=== PATIENT | female | born 1940 | race African-American/Black ===

== ENCOUNTER 2018-03-07 13:41 | Inpatient (IN) | payer MEDICARE, BC ==
[~2018-03-07] VITALS: Ht 167.6 cm; Wt 76.2 kg
[2018-03-07] MEDS ORDERED: FLUOXETINE HCL40 MG ORAL (14:17)
[2018-03-07] MEDS ORDERED: ATORVASTATIN CA20 MG ORAL (14:17)
[2018-03-07] MEDS ORDERED: SPIRONOLACTONE100 MG ORAL (14:17)
[2018-03-07 14:20] VITALS: BP 122/68
--- NOTE | 2018-03-07 14:29 | Emergency Room Report ---
History of Present Illness General Chief Complaint: Generalized Weakness Source: Patient Present Illness HPI Mrs. Michael is a 77-year-old female with history of hypertension, dyslipidemia who presents with subjective fever for the past 2 weeks. She also has had constipation for last 3 weeks. She is overall felt unwell with generalized weakness and dizziness. Gradual onset of symptoms. She has left lower quadrant abdominal pain worse with movement and position change. Pain in the left lower quadrant moderately severe and sharp. Intermittent. She's had poor appetite. Denies any weight loss. Pain does not radiate. Patient reports hx of bowel obstruction requiring surgery. Mr. Kavin Michael reports dark malodorous urine PCP Dr. Gigi Bryant Allergies: Coded Allergies: No Known Allergies (Unverified , 03/07/18) Patient History Past Medical History: see triage record, HTN Past Surgical History: , hysterectomy, other - bowel obstruction Nursing Documentation-[facility] Past Medical History: No History, Except For Hx Cardiac Problems: Yes - high cholesterol Hx Hypertension: Yes History Of Psychiatric Problem: Yes - dementia Review of Systems Constitutional: Reports: fever, malaise, weakness Gastrointestinal: Reports: abdominal pain Musculoskeletal: Denies: back pain Neurological: Denies: numbness, paresthesia, focal weakness All Other Systems: negative except mentioned in HPI Physical Exam Vital Signs Date Time Temp Pulse Resp B/P (MAP) Pulse Ox O2 Delivery O2 Flow Rate FiO2 03/07/18 14:00 99.5 115 22 126/67 96 Room Air Sp02 EP Interpretation: reviewed, normal General Appearance: no apparent distress, alert, GCS 15, non-toxic, other - appears mildly ill, slightly confused, warm to touch Head: normocephalic, atraumatic Eyes: bilateral eye normal inspection ENT: hearing grossly normal, normal pharynx, no angioedema, normal voice Neck: full range of motion, supple/symm/no masses Respiratory: chest non-tender, lungs clear, normal breath sounds, speaking full sentences Cardiovascular #1: no edema, no gallop, no JVD, no murmur, no rub, tachycardia Gastrointestinal: normal bowel sounds, non tender, soft, non-distended, no guarding, no rebound Genitourinary: normal inspection Musculoskeletal: back normal, gait/station normal, normal range of motion, non- tender, calf tenderness Neurologic: alert, oriented x3, responsive, motor strength/tone normal, sensory intact, speech normal Psychiatric: judgement/insight normal, memory normal, mood/affect normal, no suicidal/homicidal ideation Skin: normal color, no rash, warm/dry, well hydrated Lymphatic: no adenopathy Medical Decision Making Diagnostic Impression: Primary Impression: Neoplasm of abdomen Additional Impressions: Obstipation Fever ER Course Mrs. Michael presents with 2-3 weeks of fever and obstipation. Has large intra- abdominal mass concerning for malignancy. IV abx given for possible cystitis as seen on CT. Admitted to service of Dr. Roblero Labs Test 03/07/18 14:35 03/07/18 16:15 White Blood Count 11.5 K/UL (4.8-10.8) Red Blood Count 3.55 M/UL (4.20-5.40) Hemoglobin 9.3 G/DL (12.0-16.0) Hematocrit 30.1 % (37.0-47.0) Mean Corpuscular Volume 85 FL (80-99) Mean Corpuscular Hemoglobin 26.3 PG (27.0-31.0) Mean Corpuscular Hemoglobin Concent 31.0 G/DL (32.0-36.0) Red Cell Distribution Width 13.9 % (11.6-14.8) Platelet Count 361 K/UL (150-450) Mean Platelet Volume 6.9 FL (6.5-10.1) Neutrophils (%) (Auto) 74.5 % (45.0-75.0) Lymphocytes (%) (Auto) 12.4 % (20.0-45.0) Monocytes (%) (Auto) 11.7 % (1.0-10.0) Eosinophils (%) (Auto) 0.4 % (0.0-3.0) Basophils (%) (Auto) 0.9 % (0.0-2.0) Sodium Level 136 MMOL/L (136-145) Potassium Level 3.2 MMOL/L (3.5-5.1) Chloride Level 99 MMOL/L (98-107) Carbon Dioxide Level 27 MMOL/L (21-32) Anion Gap 10 mmol/L (5-15) Blood Urea Nitrogen 11 mg/dL (7-18) Creatinine 1.2 MG/DL (0.55-1.30) Estimat Glomerular Filtration Rate mL/min (>60) Glucose Level 127 MG/DL (74-106) Lactic Acid Level 1.50 mmol/L (0.4-2.0) Calcium Level 10.1 MG/DL (8.5-10.1) Total Bilirubin 1.0 MG/DL (0.2-1.0) Aspartate Amino Transf (AST/SGOT) 66 U/L (15-37) Alanine Aminotransferase (ALT/SGPT) 57 U/L (12-78) Alkaline Phosphatase 97 U/L (46-116) Creatine Kinase MB < 0.5 NG/ML (0.0-3.6) Troponin I 0.000 ng/mL (0.000-0.056) Total Protein 8.3 G/DL (6.4-8.2) Albumin 2.0 G/DL (3.4-5.0) Globulin 6.3 g/dL Albumin/Globulin Ratio 0.3 (1.0-2.7) Urine Color Brown Urine Appearance Clear Urine pH 5 (4.5-8.0) Urine Specific [place] 1.015 (1.005-1.035) Urine Protein 2+ (NEGATIVE) Urine Glucose (UA) Negative (NEGATIVE) Urine Ketones 1+ (NEGATIVE) Urine Blood 1+ (NEGATIVE) Urine Nitrite Negative (NEGATIVE) Urine Bilirubin 1+ (NEGATIVE) Urine Ictotest Negative (NEGATIVE) Urine Urobilinogen 12 MG/DL (0.0-1.0) Urine Leukocyte Esterase 1+ (NEGATIVE) Urine RBC 2-4 /HPF (0 - 2) Urine WBC 2-4 /HPF (0 - 2) Urine Squamous Epithelial Cells Few /LPF (NONE/OCC) Urine Amorphous Sediment Moderate /LPF (NONE) Urine Bacteria Few /HPF (NONE) Lab Results Impression abnormal equivocal UA CXR WNL according to radiology report EKG Diagnostic Results EKG Time: 14:32 Rate: tachycardiac Other Impression sinus tachycardia rate 120 bpm nl left axis devation no ST elevation no signs of ischemia Last Vital Signs Date Time Temp Pulse Resp B/P (MAP) Pulse Ox O2 Delivery O2 Flow Rate FiO2 03/07/18 14:20 105 22 Room Air 03/07/18 14:20 99.5 122/68 98 Referrals: NON PHYSICIAN (PCP) Ciera Wiley MD Mar 07, 2018 14:29
--- NOTE | 2018-03-07 15:01 | Diagnostic Imaging Report ---
Indication: Dyspnea Comparison: None A single view chest radiograph was obtained. Findings: No definite infiltrate or pulmonary vascular congestion identified. The heart is enlarged. The aorta is mildly enlarged consistent with atherosclerotic vascular disease. The bones are osteopenic. Impression: No acute disease
[2018-03-07 15:12] LABS: BASOPHILS % (AUTO) 0.9 % (0.0-2.0); EOSINOPHILS % (AUTO) 0.4 % (0.0-3.0); HEMATOCRIT 30.1 % (37.0-47.0); HEMOGLOBIN 9.3 G/DL (12.0-16.0); LYMPHOCYTES % (AUTO) 12.4 % (20.0-45.0); MEAN CORPUSCULAR VOLUME 85 FL (80-99); MONOCYTES % (AUTO) 11.7 % (1.0-10.0); NEUTROPHILS % (AUTO) 74.5 % (45.0-75.0); PLATELET COUNT 361 K/UL (150-450); RED BLOOD COUNT 3.55 M/UL (4.20-5.40); RED CELL DISTRIBUTION WIDTH 13.9 % (11.6-14.8); WHITE BLOOD COUNT 11.5 K/UL (4.8-10.8)
[2018-03-07 15:32] LABS: ANION GAP 10 mmol/L (5-15); BLOOD UREA NITROGEN 11 mg/dL (7-18); CALCIUM 10.1 MG/DL (8.5-10.1); CARBON DIOXIDE 27 MMOL/L (21-32); CHLORIDE 99 MMOL/L (98-107); CREATININE 1.2 MG/DL (0.55-1.30); POTASSIUM 3.2 MMOL/L (3.5-5.1); SODIUM 136 MMOL/L (136-145)
[2018-03-07 15:46] LABS: ALANINE AMINOTRANSFERASE 57 U/L (12-78); ALBUMIN/GLOBULIN RATIO 0.3 (1.0-2.7); ALKALINE PHOSPHATASE 97 U/L (46-116); ASPARTATE AMINO TRANSFERASE 66 U/L (15-37); CKMB < 0.5 NG/ML (0.0-3.6)
[2018-03-07 16:11] VITALS: BP 127/91
[2018-03-07 16:34] LABS: APPEARANCE,URINE CLEAR; BILIRUBIN, URINE 1+ (NEGATIVE); COLOR,URINE BROWN; GLUCOSE, URINE (UA) NEGATIVE (NEGATIVE); KETONES,URINE 1+ (NEGATIVE); LEUKOCYTE ESTERASE ,URINE 1+ (NEGATIVE); NITRITE,URINE NEGATIVE (NEGATIVE); PH,URINE 5 (4.5-8.0); PROTEIN,URINE 2+ (NEGATIVE); UROBILINOGEN,URINE 12 MG/DL (0.0-1.0)
[2018-03-07] MEDS ORDERED: Isovue-300 100ml vial INJ PRN (17:00)
[2018-03-07 17:48] VITALS: BP 136/79
[2018-03-07] MEDS ORDERED: Cefepime HCl 1 GM in D5W 55 ML IVPB ONE (18:15)
[2018-03-07] MEDS ORDERED: Nitroglycerin Subl 0.4mg tab SL PRN (19:00)
[2018-03-07] MEDS ORDERED: Mylanta II UD 30ml ORAL PRN (19:00)
[2018-03-07] MEDS ORDERED: LORazepam Inj 2mg/ml 1ml IV PRN (19:00)
[2018-03-07] MEDS ORDERED: Morphine Sulfate 2mg/ml Inj IVP PRN (19:00)
[2018-03-07] MEDS ORDERED: Miralax 17gm pkt ORAL PRN (19:00)
[2018-03-07] MEDS ORDERED: Metoclopramide 10mg/2ml Inj IVP PRN (19:00)
[2018-03-07] MEDS ORDERED: Promethazine HCl 25 MG in NS 55 ML IV PRN (19:00)
[2018-03-07] MEDS ORDERED: Promethazine HCl 12.5 MG in NS 55 ML IV PRN (19:00)
--- NOTE | 2018-03-07 19:20 | History & Physical ---
History and Physical History & Physicial Dictated for Int med-Dr Roblero no. [id number] Hernandez Bonilla MD Mar 07, 2018 19:20
[2018-03-07] MEDS ORDERED: Promethazine 50mg/ml Inj IM PRN (19:45)
[2018-03-07 20:00] VITALS: BP 134/80
[2018-03-07] MEDS: D5 1/2NS 1,000 ML IV SCH (20:00)
[2018-03-07] MEDS: Heparin 5000 units/ml inj SUBQ SCH (20:57)
--- NOTE | 2018-03-07 21:45 | History and Physical Report ---
DATE OF ADMISSION: 03/07/2018 CHIEF COMPLAINT: The patient is a 77-year-old female, who presents with a chief complaint of left lower quadrant pain. HISTORY OF PRESENT ILLNESS: The patient has a history of hypertension and hypercholesterolemia. The patient has had subjective fevers and chills for the last two weeks. The patient also noticed weakness and dizziness. The patient states she has also been constipated. The patient began to experience left lower quadrant pain. The patient has a history of small bowel obstruction requiring surgery. The patient is admitted with left lower quadrant pain to rule out small bowel obstruction. REVIEW OF SYSTEMS: CONSTITUTIONAL: The patient complains of poor appetite. The patient denies weight loss or weight gain. The patient complains of subjective fevers and chills. HEENT: The patient denies ear or throat pain. The patient denies headache. CARDIOVASCULAR: The patient denies palpitations or chest pain. CHEST: The patient denies wheeze or shortness of breath. ABDOMEN: The patient complains of left lower quadrant pain as above. The patient denies nausea, vomiting, diarrhea, or constipation. GENITOURINARY: The patient denies denies dysuria or increased frequency of urination. NEUROLOGIC: The patient denies seizures or generalized weakness. PAST MEDICAL HISTORY: Significant for, 1. Hypertension. 2. Hypercholesterolemia. 3. History of small bowel obstruction as above. PAST SURGICAL HISTORY: Significant for, 1. Small bowel obstruction. 2. Total abdominal hysterectomy. 3. section. CURRENT MEDICATIONS: 1. Lipitor 20 mg p.o. daily. 2. Fluoxetine 40 mg p.o. daily. 3. Spironolactone 50 mg p.o. daily. ALLERGIES: No known drug allergies. SOCIAL HISTORY: The patient is and lives with her . The patient denies tobacco or alcohol use. PHYSICAL EXAMINATION: VITAL SIGNS: Temperature 99.5, respirations 22, pulse tachycardic at 115, and blood pressure 126/67. GENERAL: The patient is a well-developed and well-nourished female, in moderate distress. HEENT: Eyes, pupils equal and responsive to light and accommodation. Extraocular movements are intact. NECK: Supple without lymphadenopathy. CHEST: Lungs are clear to auscultation bilaterally without wheezes or rales. CARDIOVASCULAR: Regular rhythm and rate. S1, S2 are normal without murmurs, rubs, or gallops. ABDOMEN: Soft and diffusely tender with positive bowel sounds. There is guarding to left lower quadrant. There is no rebound or guarding noted. EXTREMITIES: Negative for clubbing, cyanosis, or edema. RECTAL/GENITAL: Refused. NEUROLOGIC: Cranial nerves II through XII are grossly intact without focal deficits. Motor strength is 5/5 bilaterally. Deep tendon reflexes are 2+ plantar. LABORATORY STUDIES: WBC 11.5, hemoglobin 9.3, hematocrit 30.1, and platelets 261,000. Sodium 136, potassium 3.2, chloride 99, CO2 27, BUN 11, creatinine 1.2, and glucose 127. Urinalysis showed 2+ protein, 1+ ketones, 1+ blood, and 1+ leukocyte esterase with 2 to 4 wbc's. ASSESSMENT: This is a 77-year-old female. 1. Left lower quadrant pain. 2. Constipation. 3. Fever and chills. 4. Hypertension. 5. Hypercholesterolemia. TREATMENT: 1. Left lower quadrant pain. An abdominal ultrasound is pending. A CT scan of the abdomen and pelvis is pending. Left lower quadrant pain is concerning, the patient has a history of small bowel obstruction. We will follow recommendation. Await CT and ultrasound as above. 2. Hypertension. Continue spironolactone as above. 3. Hypercholesteremia. Continue Lipitor as above. Hernandez Bonilla M.D. DR: ELOISA JOB#: [id number] CC:
[2018-03-08 07:53] LABS: HEMATOCRIT 24.2 % (37.0-47.0); HEMOGLOBIN 7.6 G/DL (12.0-16.0); MEAN CORPUSCULAR VOLUME 82 FL (80-99); PLATELET COUNT 321 K/UL (150-450); RED BLOOD COUNT 2.93 M/UL (4.20-5.40); WHITE BLOOD COUNT 11.1 K/UL (4.8-10.8)
[2018-03-08 08:00] VITALS: BP 109/61
[2018-03-08 08:07] LABS: INR 1.1 (0.9-1.1)
[2018-03-08] MEDS: Spironolactone 50mg tab ORAL SCH (08:12)
[2018-03-08] MEDS: Pantoprazole Inj IV SCH (08:13)
[2018-03-08] MEDS: Heparin 5000 units/ml inj SUBQ SCH ×2 (08:14→21:57)
[2018-03-08 08:16] LABS: ALANINE AMINOTRANSFERASE 53 U/L (12-78); ALBUMIN 1.6 G/DL (3.4-5.0); ALBUMIN/GLOBULIN RATIO 0.3 (1.0-2.7); ALKALINE PHOSPHATASE 82 U/L (46-116); AMYLASE 38 U/L (25-115); ANION GAP 5 mmol/L (5-15); ASPARTATE AMINO TRANSFERASE 53 U/L (15-37); BILIRUBIN,TOTAL 0.6 MG/DL (0.2-1.0); BLOOD UREA NITROGEN 8 mg/dL (7-18); CALCIUM 9.3 MG/DL (8.5-10.1); CARBON DIOXIDE 28 MMOL/L (21-32); CHLORIDE 102 MMOL/L (98-107); LACTATE DEHYDROGENASE 162 U/L (81-234); POTASSIUM 3.3 MMOL/L (3.5-5.1); SODIUM 135 MMOL/L (136-145)
[2018-03-08] MEDS ORDERED: Isovue-300 100ml vial INJ PRN (08:45)
[2018-03-08 08:48] LABS: % IRON SATURATION 8 % (15-50); IRON 11 ug/dL (50-175); TOTAL IRON BINDING CAPACITY 132 ug/dL (250-450)
[2018-03-08] MEDS: D5 1/2NS 1,000 ML IV SCH ×2 (10:34→21:56)
--- NOTE | 2018-03-08 10:35 | Diagnostic Imaging Report ---
Indication: Abdominal pain Technique: Continuous helical transaxial imaging of the abdomen and pelvis was obtained from the lung bases to the pubic symphysis during intravenous contrast administration. Coronal 2-D reformats were also obtained. Study obtained in a Siemens sensation [address] Automatic Exposure Control was utilized. Total Dose length Product (DLP): 717.[address] Dose Index Volume (CTDIvol): 13.68 mGy Comparison: None Findings: There is a 7 x 5.6 x 6 cm heterogeneous enhancing mass in the area of the gallbladder fossa extending into the area of the distal stomach/first portion of duodenum, structures that are moderately compressed and the inseparable from this mass. The findings are suspicious for malignant tumor which may BE of gallbladder origin. It is possible that the tumor is arising from the stomach and extending into the gallbladder fossa. Would consider infection in the differential diagnosis but that this is felt to be less likely based on imaging appearance. There is no obstruction of the stomach as the stomach does not appear dilated proximal to this. The pancreas does not appear to be involved although the tumor does appear adjacent to it. The main pancreatic duct is seen and does not appear dilated. The biliary ducts in the liver do not appear dilated. There is periportal edema present. The main portal vein is patent. There is no evidence of portal vein thrombosis. IVC is unremarkable and uninvolved. There is reticular densities in the adjacent mesenteric fat in the right upper quadrant. No evidence of bowel obstruction or bowel perforation. No free air identified. The kidneys enhance normally. There is no hydronephrosis. Aortoiliac calcifications are present. Diverticula noted in the sigmoid colon. Urinary bladder is nondistended. Liver attenuation is normal. Lung bases are clear. There is a small hiatal hernia. There is no adrenal mass. Spleen is normal size. Degenerative disc disease noted multiple levels especially L2-3, L3-4 and L5-S1. Hypertrophied facets noted multiple levels within the lumbar spine. The bones are osteopenic. IMPRESSION: Large heterogeneous enhancing mass in the jori hepatis contiguous with the gallbladder fossa measuring 7 x 5.6 x 6 cm suspicious for malignant tumor. This is probably of gallbladder origin. Would consider gastric or duodenal origin. Would consider infection although much less likely based on the appearance. Correlate clinically. Atherosclerotic disease Hiatal hernia Degenerative disease of the lumbar spine. Diverticulosis of the colon. [facility] has communicated the preliminary results to the Emergency Department. Their findings are largely concordant with this report. The CT scanner at [facility] is accredited by the [employer] and the scans are performed using dose optimization techniques as appropriate to a performed exam including Automatic Exposure control.
--- NOTE | 2018-03-08 11:33 | GI Initial Consult Note ---
History of Present Illness General Date patient seen: Mar 08, 2018 Time patient seen: 11:19 Reason for Hospitalization: Generalized Weakness Referring physician: REY HOLT Reason for Consultation: ANEMIA Present Illness HPI Mrs. Michael is a 77-year-old female with history of hypertension, dyslipidemia who presents with subjective fever for the past 2 weeks. She also has had constipation for last 3 weeks. She is overall felt unwell with generalized weakness and dizziness. Gradual onset of symptoms. She has left lower quadrant abdominal pain worse with movement and position change. Pain in the left lower quadrant moderately severe and sharp. Intermittent. She's had poor appetite. Denies any weight loss. Pain does not radiate. Patient reports hx of bowel obstruction requiring surgery. Mr. Kavin Michael reports dark malodorous urine. GI consulted for anemia/constipation. Pt seen, awake A&Ox4 NAD with generalized weakness. No active s/sx of N/V/D. Patient had reports of constipation, but stated she had a regular BM this morning. The patient has no history of endoscopy / colonoscopy. Stated she had a virtual colonoscopy with normal findings. Labs reviewed; anemia, iron deficiency. Pending CT. Home Meds Reported Medications Atorvastatin Calcium* (ATORVASTATIN CALCIUM*) 20 Mg Tablet, 10 MG ORAL BEDTIME, TAB 03/07/18 Spironolactone* (SPIRONOLACTONE*) 100 Mg Tablet, 50 MG ORAL DAILY, TAB 03/07/18 Fluoxetine Hcl* (FLUOXETINE HCL*) 40 Mg Capsule, 40 MG ORAL DAILY, CAP 03/07/18 Med list reviewed/reconciled: Yes Allergies: Coded Allergies: No Known Allergies (Unverified , 03/07/18) Patient History History Provided By: Patient, Medical Record PMH Narrative Past Medical History: see triage record, HTN Past Surgical History: , hysterectomy, other - bowel obstruction Nursing Documentation-PM Past Medical History: No History, Except For Hx Cardiac Problems: Yes - high cholesterol Hx Hypertension: Yes History Of Psychiatric Problem: Yes - dementia Social History: Denies: smoking, alcohol use, drug use, other Review of Systems All Other Systems: negative except mentioned in HPI Physical Exam Vital Signs Date Time Temp Pulse Resp B/P (MAP) Pulse Ox O2 Delivery O2 Flow Rate FiO2 03/07/18 14:00 99.5 115 22 126/67 96 Room Air Sp02 EP Interpretation: reviewed, normal Labs Laboratory Tests Test 03/07/18 14:35 03/07/18 16:15 03/08/18 06:45 White Blood Count 11.5 K/UL (4.8-10.8) H 11.1 K/UL (4.8-10.8) H Red Blood Count 3.55 M/UL (4.20-5.40) L 2.93 M/UL (4.20-5.40) L Hemoglobin 9.3 G/DL (12.0-16.0) L 7.6 G/DL (12.0-16.0) L Hematocrit 30.1 % (37.0-47.0) L 24.2 % (37.0-47.0) L Mean Corpuscular Volume 85 FL (80-99) 82 FL (80-99) Mean Corpuscular Hemoglobin 26.3 PG (27.0-31.0) L 26.1 PG (27.0-31.0) L Mean Corpuscular Hemoglobin Concent 31.0 G/DL (32.0-36.0) L 31.6 G/DL (32.0-36.0) L Red Cell Distribution Width 13.9 % (11.6-14.8) 14.0 % (11.6-14.8) Platelet Count 361 K/UL (150-450) 321 K/UL (150-450) Mean Platelet Volume 6.9 FL (6.5-10.1) 7.0 FL (6.5-10.1) Neutrophils (%) (Auto) 74.5 % (45.0-75.0) % (45.0-75.0) Lymphocytes (%) (Auto) 12.4 % (20.0-45.0) L % (20.0-45.0) Monocytes (%) (Auto) 11.7 % (1.0-10.0) H % (1.0-10.0) Eosinophils (%) (Auto) 0.4 % (0.0-3.0) % (0.0-3.0) Basophils (%) (Auto) 0.9 % (0.0-2.0) % (0.0-2.0) Sodium Level 136 MMOL/L (136-145) 135 MMOL/L (136-145) L Potassium Level 3.2 MMOL/L (3.5-5.1) L 3.3 MMOL/L (3.5-5.1) L Chloride Level 99 MMOL/L (98-107) 102 MMOL/L (98-107) Carbon Dioxide Level 27 MMOL/L (21-32) 28 MMOL/L (21-32) Anion Gap 10 mmol/L (5-15) 5 mmol/L (5-15) Blood Urea Nitrogen 11 mg/dL (7-18) 8 mg/dL (7-18) Creatinine 1.2 MG/DL (0.55-1.30) 1.0 MG/DL (0.55-1.30) Estimat Glomerular Filtration Rate mL/min (>60) mL/min (>60) Glucose Level 127 MG/DL (74-106) H 128 MG/DL (74-106) H Lactic Acid Level 1.50 mmol/L (0.4-2.0) Calcium Level 10.1 MG/DL (8.5-10.1) 9.3 MG/DL (8.5-10.1) Total Bilirubin 1.0 MG/DL (0.2-1.0) 0.6 MG/DL (0.2-1.0) Aspartate Amino Transf (AST/SGOT) 66 U/L (15-37) H 53 U/L (15-37) H Alanine Aminotransferase (ALT/SGPT) 57 U/L (12-78) 53 U/L (12-78) Alkaline Phosphatase 97 U/L (46-116) 82 U/L (46-116) Creatine Kinase MB < 0.5 NG/ML (0.0-3.6) Troponin I 0.000 ng/mL (0.000-0.056) Total Protein 8.3 G/DL (6.4-8.2) H 6.7 G/DL (6.4-8.2) Albumin 2.0 G/DL (3.4-5.0) L 1.6 G/DL (3.4-5.0) L Globulin 6.3 g/dL 5.1 g/dL Albumin/Globulin Ratio 0.3 (1.0-2.7) L 0.3 (1.0-2.7) L Urine Color Brown Urine Appearance Clear Urine pH 5 (4.5-8.0) Urine Specific [place] 1.015 (1.005-1.035) Urine Protein 2+ (NEGATIVE) H Urine Glucose (UA) Negative (NEGATIVE) Urine Ketones 1+ (NEGATIVE) H Urine Blood 1+ (NEGATIVE) H Urine Nitrite Negative (NEGATIVE) Urine Bilirubin 1+ (NEGATIVE) H Urine Ictotest Negative (NEGATIVE) Urine Urobilinogen 12 MG/DL (0.0-1.0) H Urine Leukocyte Esterase 1+ (NEGATIVE) H Urine RBC 2-4 /HPF (0 - 2) H Urine WBC 2-4 /HPF (0 - 2) Urine Squamous Epithelial Cells Few /LPF (NONE/OCC) Urine Amorphous Sediment Moderate /LPF (NONE) H Urine Bacteria Few /HPF (NONE) Differential Total Cells Counted 100 Neutrophils % (Manual) 76 % (45-75) H Lymphocytes % (Manual) 13 % (20-45) L Monocytes % (Manual) 9 % (1-10) Eosinophils % (Manual) 1 % (0-3) Basophils % (Manual) 1 % (0-2) Band Neutrophils 0 % (0-8) Platelet Estimate Adequate Platelet Morphology Normal Hypochromasia 3+ Anisocytosis 1+ Erythrocyte Sedimentation Rate 100 MM/HR (0-30) H Reticulocyte Count 2.0 % (0.0-2.0) Prothrombin Time 11.8 SEC (9.30-11.50) H Prothromb Time International Ratio 1.1 (0.9-1.1) Activated Partial Thromboplast Time 30 SEC (23-33) Iron Level 11 ug/dL (50-175) L Total Iron Binding Capacity 132 ug/dL (250-450) L Percent Iron Saturation 8 % (15-50) L Unsaturated Iron Binding 121 ug/dL (112-346) Lactate Dehydrogenase 162 U/L (81-234) Amylase Level 38 U/L (25-115) Lipase 183 U/L (73-393) Carcinoembryonic Antigen Pending Vitamin B12 Level 1552 PG/ML (193-986) H Folate 11.0 NG/ML (8.6-58.9) General Appearance: well appearing, no apparent distress, alert Head: normocephalic EENT: PERRL/EOMI, normal ENT inspection Neck: supple Respiratory: normal breath sounds, no respiratory distress Cardiovascular: normal rate Gastrointestinal: normal inspection, non tender, soft, normal bowel sounds, non -distended Rectal: deferred Genitourinary: no CVA tenderness Musculoskeletal: normal inspection, back normal Neurologic: normal inspection, alert, oriented x3, responsive Psychiatric: normal inspection, judgement/insight normal, memory normal Skin: normal inspection, normal color, no rash, warm/dry, palpation normal, well hydrated Lymphatic: normal inspection, no adenopathy Current Medications Current Medications Medications (Trade) Dose Ordered Sig/Sebastien Route PRN Reason Start Time Stop Time Status Last Admin Dose Admin Acetaminophen (Tylenol) 650 mg Q4H PRN ORAL fever (temp>100.5F) 03/07/18 19:00 04/06/18 18:59 Al Hydroxide/Mg Hydroxide (Mylanta II) 30 ml Q6H PRN ORAL dyspepsia 03/07/18 19:00 04/06/18 18:59 Atorvastatin Calcium (Lipitor) 10 mg BEDTIME ORAL 03/07/18 23:15 04/06/18 23:14 Barium Sulfate (Readi-Cat 2) 450 ml NOW PRN ORAL Radiology Procedure 03/08/18 08:45 03/10/18 08:42 Dextrose (Dextrose 50%) 25 ml Q30M PRN IV Hypoglycemia 03/07/18 19:00 04/06/18 18:59 Dextrose (Dextrose 50%) 50 ml Q30M PRN IV Hypoglycemia 03/07/18 19:00 04/06/18 18:59 Dextrose/Sodium Chloride 1,000 ml @ 75 mls/hr [id number] IV 03/07/18 20:00 04/06/18 19:59 03/08/18 10:34 Diphenhydramine HCl (Benadryl) 25 mg Q6H PRN ORAL Itching/Pruritis 03/07/18 19:00 04/06/18 18:59 Fluoxetine HCl (PROzac) 60 mg DAILY ORAL 03/09/18 09:00 04/08/18 08:59 Heparin Sodium (Porcine) (Heparin 5000 units/ml) 5,000 units EVERY 12 HOURS SUBQ 03/07/18 21:00 04/06/18 20:59 03/08/18 08:14 Iopamidol (Isovue-300 100ml) 100 ml NOW PRN INJ Radiology Procedure 03/07/18 17:00 03/09/18 16:59 Iopamidol (Isovue-300 100ml) 100 ml NOW PRN INJ Radiology Procedure 03/08/18 08:45 03/09/18 08:44 Lorazepam (Ativan 2mg/ml 1ml) 1 mg Q4H PRN IV agitation 03/07/18 19:00 03/14/18 18:59 Metoclopramide HCl (Reglan) 10 mg Q6H PRN IVP severe nausea 03/07/18 19:00 04/06/18 18:59 Morphine Sulfate (Morphine Sulfate) 2 mg Q4H PRN IVP severe Pain (Pain Scale 7-10) 03/07/18 19:00 03/14/18 18:59 Nitroglycerin (Ntg) 0.4 mg Q5M X 3 DOSES PRN SL Prn Chest Pain 03/07/18 19:00 04/06/18 18:59 Ondansetron HCl (Zofran) 4 mg Q6H PRN IVP Nausea & Vomiting 03/07/18 19:00 04/06/18 18:59 Pantoprazole (Protonix) 40 mg DAILY IV 03/08/18 09:00 04/07/18 08:59 03/08/18 08:13 Polyethylene Glycol (Miralax) 17 gm HSPRN PRN ORAL Constipation 03/07/18 19:00 04/06/18 18:59 Promethazine HCl (Phenergan) 25 mg Q6H PRN IM Refractory N/V 03/07/18 19:45 04/06/18 19:44 Spironolactone (Aldactone) 50 mg DAILY ORAL 03/08/18 09:00 04/07/18 08:59 03/08/18 08:12 Temazepam (Restoril) 15 mg HSPRN PRN ORAL Insomnia 03/07/18 19:00 03/14/18 18:59 GI: Plan Problems: (1) Anemia (2) Constipation (3) Neoplasm of abdomen Plan CT AP reviewed >> Large heterogeneous enhancing mass in the jori hepatis contiguous with the gallbladder fossa measuring 7 x 5.6 x 6 cm suspicious for malignant tumor. This is probably of gallbladder origin. surgery /oncology consult recommended CT guided biopsy tumor markers anemia work up monitor H&H, prn transfusions bowel regime ppi venofer fu labs Discussed with Dr. Deleon. Thank you for this patient referral, we will follow. The patient was seen and examined at bedside and all new and available data was reviewed in the patients chart. I agree with the above findings, impression and plan. (Patient seen earlier today. Signature stamp does not reflect patient encounter time.). - MD Ehsan Lewisuyen,[facility] [employer] SET UP OPERATOR Mar 08, 2018 11:33
[2018-03-08 12:00] VITALS: BP 117/67
[2018-03-08] MEDS ORDERED: Gadavist 7.5mMol/7.5ml vial IV SCH (12:15)
--- NOTE | 2018-03-08 12:17 | Consultation ---
History of Present Illness General Chief Complaint: Generalized Weakness Referring physician: REY HOLT Reason for Consultation: abdominal mass Present Illness HPI 77 year old female with multiple medical comorbidities presented with complaints of fevers, chills, night sweats, abdominal discomfort, fatigue, constipation. states gradual onset of symptoms over few weeks. on admission had CT scan which demonstrated RUQ mass. surgery called to evaluate. patient seen, chart reviewed, patient examined. patient unaware of mass. 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 currently feeling okay. somewhat poor historian. states cannot recall colonoscopy but had virtual CT scope a year ago in [place] somewhere. usually constipated. states BM last night and normal. no blood seen. no n/v. Allergies: Coded Allergies: No Known Allergies (Unverified , 03/07/18) Medication History Scheduled Atorvastatin Calcium* (Atorvastatin Calcium*), 10 MG ORAL BEDTIME, (Reported) Fluoxetine Hcl* (Fluoxetine Hcl*), 40 MG ORAL DAILY, (Reported) Spironolactone* (Spironolactone*), 50 MG ORAL DAILY, (Reported) Patient History History Provided By: Patient, Medical Record, PMD Healthcare decision maker Kavin Resuscitation status Full Code Advanced Directive on File Past Medical/Surgical History Past Medical/Surgical History: (1) Weakness (2) Obstipation (3) Fever (4) Neoplasm of abdomen (5) Constipation (6) Anemia Review of Systems All Other Systems: negative except mentioned in HPI Physical Exam General Appearance: no apparent distress, alert Lines, tubes and drains: peripheral HEENT: normocephalic, mucous membranes moist Neck: normal inspection Respiratory/Chest: normal breath sounds, no respiratory distress, no accessory muscle use Cardiovascular/Chest: normal rate, regular rhythm Abdomen: normal bowel sounds, non tender, soft, no organomegaly, no mass, other - prior lower midline scar well healed Extremities: normal inspection Skin Exam: warm/dry Neurologic: alert, responsive Last 24 Hour Vital Signs Date Time Temp Pulse Resp B/P (MAP) Pulse Ox O2 Delivery O2 Flow Rate FiO2 03/08/18 09:00 Room Air 03/08/18 08:00 91 03/08/18 08:00 99.2 89 109/61 (77) 93 03/08/18 04:00 92 03/08/18 00:00 90 03/07/18 21:45 Room Air 03/07/18 20:00 99.1 97 134/80 (98) 98 03/07/18 20:00 94 03/07/18 18:47 99.5 94 22 136/79 96 Room Air 03/07/18 17:48 99.5 94 22 136/79 96 Room Air 03/07/18 16:11 99.5 98 22 127/91 98 Room Air 03/07/18 14:20 105 22 Room Air 03/07/18 14:20 99.5 105 22 122/68 98 Room Air 03/07/18 14:00 99.5 115 22 126/67 96 Room Air Intake and Output 03/07/18 03/08/18 19:00 07:00 Intake Total 2300 ml Balance 2300 ml Intake IV Total 2300 ml # Voids 1 1 Laboratory Tests Test 03/07/18 14:35 03/07/18 16:15 03/08/18 06:45 White Blood Count 11.5 K/UL (4.8-10.8) H 11.1 K/UL (4.8-10.8) H Red Blood Count 3.55 M/UL (4.20-5.40) L 2.93 M/UL (4.20-5.40) L Hemoglobin 9.3 G/DL (12.0-16.0) L 7.6 G/DL (12.0-16.0) L Hematocrit 30.1 % (37.0-47.0) L 24.2 % (37.0-47.0) L Mean Corpuscular Volume 85 FL (80-99) 82 FL (80-99) Mean Corpuscular Hemoglobin 26.3 PG (27.0-31.0) L 26.1 PG (27.0-31.0) L Mean Corpuscular Hemoglobin Concent 31.0 G/DL (32.0-36.0) L 31.6 G/DL (32.0-36.0) L Red Cell Distribution Width 13.9 % (11.6-14.8) 14.0 % (11.6-14.8) Platelet Count 361 K/UL (150-450) 321 K/UL (150-450) Mean Platelet Volume 6.9 FL (6.5-10.1) 7.0 FL (6.5-10.1) Neutrophils (%) (Auto) 74.5 % (45.0-75.0) % (45.0-75.0) Lymphocytes (%) (Auto) 12.4 % (20.0-45.0) L % (20.0-45.0) Monocytes (%) (Auto) 11.7 % (1.0-10.0) H % (1.0-10.0) Eosinophils (%) (Auto) 0.4 % (0.0-3.0) % (0.0-3.0) Basophils (%) (Auto) 0.9 % (0.0-2.0) % (0.0-2.0) Sodium Level 136 MMOL/L (136-145) 135 MMOL/L (136-145) L Potassium Level 3.2 MMOL/L (3.5-5.1) L 3.3 MMOL/L (3.5-5.1) L Chloride Level 99 MMOL/L (98-107) 102 MMOL/L (98-107) Carbon Dioxide Level 27 MMOL/L (21-32) 28 MMOL/L (21-32) Anion Gap 10 mmol/L (5-15) 5 mmol/L (5-15) Blood Urea Nitrogen 11 mg/dL (7-18) 8 mg/dL (7-18) Creatinine 1.2 MG/DL (0.55-1.30) 1.0 MG/DL (0.55-1.30) Estimat Glomerular Filtration Rate mL/min (>60) mL/min (>60) Glucose Level 127 MG/DL (74-106) H 128 MG/DL (74-106) H Lactic Acid Level 1.50 mmol/L (0.4-2.0) Calcium Level 10.1 MG/DL (8.5-10.1) 9.3 MG/DL (8.5-10.1) Total Bilirubin 1.0 MG/DL (0.2-1.0) 0.6 MG/DL (0.2-1.0) Aspartate Amino Transf (AST/SGOT) 66 U/L (15-37) H 53 U/L (15-37) H Alanine Aminotransferase (ALT/SGPT) 57 U/L (12-78) 53 U/L (12-78) Alkaline Phosphatase 97 U/L (46-116) 82 U/L (46-116) Creatine Kinase MB < 0.5 NG/ML (0.0-3.6) Troponin I 0.000 ng/mL (0.000-0.056) Total Protein 8.3 G/DL (6.4-8.2) H 6.7 G/DL (6.4-8.2) Albumin 2.0 G/DL (3.4-5.0) L 1.6 G/DL (3.4-5.0) L Globulin 6.3 g/dL 5.1 g/dL Albumin/Globulin Ratio 0.3 (1.0-2.7) L 0.3 (1.0-2.7) L Urine Color Brown Urine Appearance Clear Urine pH 5 (4.5-8.0) Urine Specific [place] 1.015 (1.005-1.035) Urine Protein 2+ (NEGATIVE) H Urine Glucose (UA) Negative (NEGATIVE) Urine Ketones 1+ (NEGATIVE) H Urine Blood 1+ (NEGATIVE) H Urine Nitrite Negative (NEGATIVE) Urine Bilirubin 1+ (NEGATIVE) H Urine Ictotest Negative (NEGATIVE) Urine Urobilinogen 12 MG/DL (0.0-1.0) H Urine Leukocyte Esterase 1+ (NEGATIVE) H Urine RBC 2-4 /HPF (0 - 2) H Urine WBC 2-4 /HPF (0 - 2) Urine Squamous Epithelial Cells Few /LPF (NONE/OCC) Urine Amorphous Sediment Moderate /LPF (NONE) H Urine Bacteria Few /HPF (NONE) Differential Total Cells Counted 100 Neutrophils % (Manual) 76 % (45-75) H Lymphocytes % (Manual) 13 % (20-45) L Monocytes % (Manual) 9 % (1-10) Eosinophils % (Manual) 1 % (0-3) Basophils % (Manual) 1 % (0-2) Band Neutrophils 0 % (0-8) Platelet Estimate Adequate Platelet Morphology Normal Hypochromasia 3+ Anisocytosis 1+ Erythrocyte Sedimentation Rate 100 MM/HR (0-30) H Reticulocyte Count 2.0 % (0.0-2.0) Prothrombin Time 11.8 SEC (9.30-11.50) H Prothromb Time International Ratio 1.1 (0.9-1.1) Activated Partial Thromboplast Time 30 SEC (23-33) Iron Level 11 ug/dL (50-175) L Total Iron Binding Capacity 132 ug/dL (250-450) L Percent Iron Saturation 8 % (15-50) L Unsaturated Iron Binding 121 ug/dL (112-346) Lactate Dehydrogenase 162 U/L (81-234) Amylase Level 38 U/L (25-115) Lipase 183 U/L (73-393) Carcinoembryonic Antigen Pending Vitamin B12 Level 1552 PG/ML (193-986) H Folate 11.0 NG/ML (8.6-58.9) Height (Feet): 5 Height (Inches): 7.00 Weight (Pounds): 170 Medications Current Medications Medications (Trade) Dose Ordered Sig/Sebastien Route PRN Reason Start Time Stop Time Status Last Admin Dose Admin Acetaminophen (Tylenol) 650 mg Q4H PRN ORAL fever (temp>100.5F) 03/07/18 19:00 04/06/18 18:59 Al Hydroxide/Mg Hydroxide (Mylanta II) 30 ml Q6H PRN ORAL dyspepsia 03/07/18 19:00 04/06/18 18:59 Atorvastatin Calcium (Lipitor) 10 mg BEDTIME ORAL 03/07/18 23:15 04/06/18 23:14 Barium Sulfate (Readi-Cat 2) 450 ml NOW PRN ORAL Radiology Procedure 03/08/18 08:45 03/10/18 08:42 Dextrose (Dextrose 50%) 25 ml Q30M PRN IV Hypoglycemia 03/07/18 19:00 04/06/18 18:59 Dextrose (Dextrose 50%) 50 ml Q30M PRN IV Hypoglycemia 03/07/18 19:00 04/06/18 18:59 Dextrose/Sodium Chloride 1,000 ml @ 75 mls/hr [id number] IV 03/07/18 20:00 04/06/18 19:59 03/08/18 10:34 Diphenhydramine HCl (Benadryl) 25 mg Q6H PRN ORAL Itching/Pruritis 03/07/18 19:00 04/06/18 18:59 Docusate Sodium (Colace) 100 mg THREE TIMES A DAY ORAL 03/08/18 13:00 12/9/18 12:59 Fluoxetine HCl (PROzac) 60 mg DAILY ORAL 03/09/18 09:00 04/08/18 08:59 Gadobutrol (Gadavist) 7.5 mmol ONCE IV 03/08/18 12:15 03/08/18 23:59 Heparin Sodium (Porcine) (Heparin 5000 units/ml) 5,000 units EVERY 12 HOURS SUBQ 03/07/18 21:00 04/06/18 20:59 03/08/18 08:14 Iopamidol (Isovue-300 100ml) 100 ml NOW PRN INJ Radiology Procedure 03/07/18 17:00 03/09/18 16:59 Iopamidol (Isovue-300 100ml) 100 ml NOW PRN INJ Radiology Procedure 03/08/18 08:45 03/09/18 08:44 Iron Sucrose 100 mg/Sodium Chloride 60 ml @ 240 mls/hr BEDTIME IV 03/08/18 21:00 03/10/18 21:14 Lorazepam (Ativan 2mg/ml 1ml) 1 mg Q4H PRN IV agitation 03/07/18 19:00 03/14/18 18:59 Metoclopramide HCl (Reglan) 10 mg Q6H PRN IVP severe nausea 03/07/18 19:00 04/06/18 18:59 Morphine Sulfate (Morphine Sulfate) 2 mg Q4H PRN IVP severe Pain (Pain Scale 7-10) 03/07/18 19:00 03/14/18 18:59 Nitroglycerin (Ntg) 0.4 mg Q5M X 3 DOSES PRN SL Prn Chest Pain 03/07/18 19:00 04/06/18 18:59 Ondansetron HCl (Zofran) 4 mg Q6H PRN IVP Nausea & Vomiting 03/07/18 19:00 04/06/18 18:59 Pantoprazole (Protonix) 40 mg DAILY IV 03/08/18 09:00 04/07/18 08:59 03/08/18 08:13 Polyethylene Glycol (Miralax) 17 gm HSPRN PRN ORAL Constipation 03/07/18 19:00 04/06/18 18:59 Promethazine HCl (Phenergan) 25 mg Q6H PRN IM Refractory N/V 03/07/18 19:45 04/06/18 19:44 Spironolactone (Aldactone) 50 mg DAILY ORAL 03/08/18 09:00 04/07/18 08:59 03/08/18 08:12 Temazepam (Restoril) 15 mg HSPRN PRN ORAL Insomnia 03/07/18 19:00 03/14/18 18:59 Assessment/Plan Problem List: (1) Neoplasm of abdomen Assessment & Plan: 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 GB vs gastric vs colon? CT reviewed recommend MRI for better evaluation of tumor if possible tumor markers pending ultrasound may need biopsy but hold off for now. will follow with recs. thank you. ICD Codes: D49.89 - Neoplasm of unspecified behavior of other specified sites SNOMED: 852303167 Status: stable Klever Thurman Mar 08, 2018 12:17
[2018-03-08] MEDS: Docusate 100mg cap ORAL SCH ×2 (12:53→17:42)
--- NOTE | 2018-03-08 12:58 | Consultation ---
History of Present Illness General Date patient seen: Mar 08, 2018 Chief Complaint: Generalized Weakness Referring physician: REY HOLT Reason for Consultation: abdominal mass Present Illness HPI 77-year-old female with history of hx of bowel obstruction requiring surgery, hypertension, dyslipidemia who presents with subjective fever for the past 2 weeks. She is overall felt unwell with generalized weakness and dizziness. She has left lower quadrant abdominal pain worse with movement and position change. She had a CT scan in ER which showed: Large heterogeneous enhancing mass in the jori hepatis contiguous with the gallbladder fossa measuring 7 x 5.6 x 6 cm suspicious for malignant tumor. Allergies: Coded Allergies: No Known Allergies (Unverified , 03/07/18) Medication History Scheduled Atorvastatin Calcium* (Atorvastatin Calcium*), 10 MG ORAL BEDTIME, (Reported) Fluoxetine Hcl* (Fluoxetine Hcl*), 40 MG ORAL DAILY, (Reported) Spironolactone* (Spironolactone*), 50 MG ORAL DAILY, (Reported) Patient History Healthcare decision maker Kavin Resuscitation status Full Code Advanced Directive on File Review of Systems All Other Systems: negative except mentioned in HPI Physical Exam General Appearance: WD/WN Lines, tubes and drains: peripheral HEENT: normocephalic, atraumatic Neck: non-tender, normal alignment Respiratory/Chest: chest wall non-tender, lungs clear Breasts: no masses Cardiovascular/Chest: normal rate Abdomen: normal bowel sounds, distended Genitourinary/Rectal: normal genital exam Extremities: normal range of motion Last 24 Hour Vital Signs Date Time Temp Pulse Resp B/P (MAP) Pulse Ox O2 Delivery O2 Flow Rate FiO2 03/08/18 12:00 97.7 96 18 117/67 (84) 99 03/08/18 09:00 Room Air 03/08/18 08:00 91 03/08/18 08:00 99.2 89 109/61 (77) 93 03/08/18 04:00 92 03/08/18 00:00 90 03/07/18 21:45 Room Air 03/07/18 20:00 99.1 97 134/80 (98) 98 03/07/18 20:00 94 03/07/18 18:47 99.5 94 22 136/79 96 Room Air 03/07/18 17:48 99.5 94 22 136/79 96 Room Air 03/07/18 16:11 99.5 98 22 127/91 98 Room Air 03/07/18 14:20 105 22 Room Air 03/07/18 14:20 99.5 105 22 122/68 98 Room Air 03/07/18 14:00 99.5 115 22 126/67 96 Room Air Intake and Output 03/07/18 03/08/18 19:00 07:00 Intake Total 2300 ml Balance 2300 ml Intake IV Total 2300 ml # Voids 1 1 Laboratory Tests Test 03/07/18 14:35 03/07/18 16:15 03/08/18 06:45 White Blood Count 11.5 K/UL (4.8-10.8) H 11.1 K/UL (4.8-10.8) H Red Blood Count 3.55 M/UL (4.20-5.40) L 2.93 M/UL (4.20-5.40) L Hemoglobin 9.3 G/DL (12.0-16.0) L 7.6 G/DL (12.0-16.0) L Hematocrit 30.1 % (37.0-47.0) L 24.2 % (37.0-47.0) L Mean Corpuscular Volume 85 FL (80-99) 82 FL (80-99) Mean Corpuscular Hemoglobin 26.3 PG (27.0-31.0) L 26.1 PG (27.0-31.0) L Mean Corpuscular Hemoglobin Concent 31.0 G/DL (32.0-36.0) L 31.6 G/DL (32.0-36.0) L Red Cell Distribution Width 13.9 % (11.6-14.8) 14.0 % (11.6-14.8) Platelet Count 361 K/UL (150-450) 321 K/UL (150-450) Mean Platelet Volume 6.9 FL (6.5-10.1) 7.0 FL (6.5-10.1) Neutrophils (%) (Auto) 74.5 % (45.0-75.0) % (45.0-75.0) Lymphocytes (%) (Auto) 12.4 % (20.0-45.0) L % (20.0-45.0) Monocytes (%) (Auto) 11.7 % (1.0-10.0) H % (1.0-10.0) Eosinophils (%) (Auto) 0.4 % (0.0-3.0) % (0.0-3.0) Basophils (%) (Auto) 0.9 % (0.0-2.0) % (0.0-2.0) Sodium Level 136 MMOL/L (136-145) 135 MMOL/L (136-145) L Potassium Level 3.2 MMOL/L (3.5-5.1) L 3.3 MMOL/L (3.5-5.1) L Chloride Level 99 MMOL/L (98-107) 102 MMOL/L (98-107) Carbon Dioxide Level 27 MMOL/L (21-32) 28 MMOL/L (21-32) Anion Gap 10 mmol/L (5-15) 5 mmol/L (5-15) Blood Urea Nitrogen 11 mg/dL (7-18) 8 mg/dL (7-18) Creatinine 1.2 MG/DL (0.55-1.30) 1.0 MG/DL (0.55-1.30) Estimat Glomerular Filtration Rate mL/min (>60) mL/min (>60) Glucose Level 127 MG/DL (74-106) H 128 MG/DL (74-106) H Lactic Acid Level 1.50 mmol/L (0.4-2.0) Calcium Level 10.1 MG/DL (8.5-10.1) 9.3 MG/DL (8.5-10.1) Total Bilirubin 1.0 MG/DL (0.2-1.0) 0.6 MG/DL (0.2-1.0) Aspartate Amino Transf (AST/SGOT) 66 U/L (15-37) H 53 U/L (15-37) H Alanine Aminotransferase (ALT/SGPT) 57 U/L (12-78) 53 U/L (12-78) Alkaline Phosphatase 97 U/L (46-116) 82 U/L (46-116) Creatine Kinase MB < 0.5 NG/ML (0.0-3.6) Troponin I 0.000 ng/mL (0.000-0.056) Total Protein 8.3 G/DL (6.4-8.2) H 6.7 G/DL (6.4-8.2) Albumin 2.0 G/DL (3.4-5.0) L 1.6 G/DL (3.4-5.0) L Globulin 6.3 g/dL 5.1 g/dL Albumin/Globulin Ratio 0.3 (1.0-2.7) L 0.3 (1.0-2.7) L Urine Color Brown Urine Appearance Clear Urine pH 5 (4.5-8.0) Urine Specific [place] 1.015 (1.005-1.035) Urine Protein 2+ (NEGATIVE) H Urine Glucose (UA) Negative (NEGATIVE) Urine Ketones 1+ (NEGATIVE) H Urine Blood 1+ (NEGATIVE) H Urine Nitrite Negative (NEGATIVE) Urine Bilirubin 1+ (NEGATIVE) H Urine Ictotest Negative (NEGATIVE) Urine Urobilinogen 12 MG/DL (0.0-1.0) H Urine Leukocyte Esterase 1+ (NEGATIVE) H Urine RBC 2-4 /HPF (0 - 2) H Urine WBC 2-4 /HPF (0 - 2) Urine Squamous Epithelial Cells Few /LPF (NONE/OCC) Urine Amorphous Sediment Moderate /LPF (NONE) H Urine Bacteria Few /HPF (NONE) Differential Total Cells Counted 100 Neutrophils % (Manual) 76 % (45-75) H Lymphocytes % (Manual) 13 % (20-45) L Monocytes % (Manual) 9 % (1-10) Eosinophils % (Manual) 1 % (0-3) Basophils % (Manual) 1 % (0-2) Band Neutrophils 0 % (0-8) Platelet Estimate Adequate Platelet Morphology Normal Hypochromasia 3+ Anisocytosis 1+ Erythrocyte Sedimentation Rate 100 MM/HR (0-30) H Reticulocyte Count 2.0 % (0.0-2.0) Prothrombin Time 11.8 SEC (9.30-11.50) H Prothromb Time International Ratio 1.1 (0.9-1.1) Activated Partial Thromboplast Time 30 SEC (23-33) Iron Level 11 ug/dL (50-175) L Total Iron Binding Capacity 132 ug/dL (250-450) L Percent Iron Saturation 8 % (15-50) L Unsaturated Iron Binding 121 ug/dL (112-346) Lactate Dehydrogenase 162 U/L (81-234) Amylase Level 38 U/L (25-115) Lipase 183 U/L (73-393) Carcinoembryonic Antigen Pending Vitamin B12 Level 1552 PG/ML (193-986) H Folate 11.0 NG/ML (8.6-58.9) Height (Feet): 5 Height (Inches): 7.00 Weight (Pounds): 170 Medications Current Medications Medications (Trade) Dose Ordered Sig/Sebastien Route PRN Reason Start Time Stop Time Status Last Admin Dose Admin Acetaminophen (Tylenol) 650 mg Q4H PRN ORAL fever (temp>100.5F) 03/07/18 19:00 04/06/18 18:59 Al Hydroxide/Mg Hydroxide (Mylanta II) 30 ml Q6H PRN ORAL dyspepsia 03/07/18 19:00 04/06/18 18:59 Atorvastatin Calcium (Lipitor) 10 mg BEDTIME ORAL 03/07/18 23:15 04/06/18 23:14 Barium Sulfate (Readi-Cat 2) 450 ml NOW PRN ORAL Radiology Procedure 03/08/18 08:45 03/10/18 08:42 Dextrose (Dextrose 50%) 25 ml Q30M PRN IV Hypoglycemia 03/07/18 19:00 04/06/18 18:59 Dextrose (Dextrose 50%) 50 ml Q30M PRN IV Hypoglycemia 03/07/18 19:00 04/06/18 18:59 Dextrose/Sodium Chloride 1,000 ml @ 75 mls/hr [id number] IV 03/07/18 20:00 04/06/18 19:59 03/08/18 10:34 Diphenhydramine HCl (Benadryl) 25 mg Q6H PRN ORAL Itching/Pruritis 03/07/18 19:00 04/06/18 18:59 Docusate Sodium (Colace) 100 mg THREE TIMES A DAY ORAL 03/08/18 13:00 04/07/18 12:59 Fluoxetine HCl (PROzac) 60 mg DAILY ORAL 03/09/18 09:00 04/08/18 08:59 Gadobutrol (Gadavist) 7.5 mmol ONCE IV 03/08/18 12:15 03/08/18 23:59 Heparin Sodium (Porcine) (Heparin 5000 units/ml) 5,000 units EVERY 12 HOURS SUBQ 03/07/18 21:00 04/06/18 20:59 03/08/18 08:14 Iopamidol (Isovue-300 100ml) 100 ml NOW PRN INJ Radiology Procedure 03/07/18 17:00 03/09/18 16:59 Iopamidol (Isovue-300 100ml) 100 ml NOW PRN INJ Radiology Procedure 03/08/18 08:45 03/09/18 08:44 Iron Sucrose 100 mg/Sodium Chloride 60 ml @ 240 mls/hr BEDTIME IV 03/08/18 21:00 03/10/18 21:14 Lorazepam (Ativan 2mg/ml 1ml) 1 mg Q4H PRN IV agitation 03/07/18 19:00 03/14/18 18:59 Metoclopramide HCl (Reglan) 10 mg Q6H PRN IVP severe nausea 03/07/18 19:00 04/06/18 18:59 Morphine Sulfate (Morphine Sulfate) 2 mg Q4H PRN IVP severe Pain (Pain Scale 7-10) 03/07/18 19:00 03/14/18 18:59 Nitroglycerin (Ntg) 0.4 mg Q5M X 3 DOSES PRN SL Prn Chest Pain 03/07/18 19:00 04/06/18 18:59 Ondansetron HCl (Zofran) 4 mg Q6H PRN IVP Nausea & Vomiting 03/07/18 19:00 04/06/18 18:59 Pantoprazole (Protonix) 40 mg DAILY IV 03/08/18 09:00 04/07/18 08:59 03/08/18 08:13 Polyethylene Glycol (Miralax) 17 gm HSPRN PRN ORAL Constipation 03/07/18 19:00 04/06/18 18:59 Potassium Chloride (K-Dur) 40 meq ONCE ORAL 03/08/18 12:15 03/08/18 13:15 Promethazine HCl (Phenergan) 25 mg Q6H PRN IM Refractory N/V 03/07/18 19:45 04/06/18 19:44 Spironolactone (Aldactone) 50 mg DAILY ORAL 03/08/18 09:00 04/07/18 08:59 03/08/18 08:12 Temazepam (Restoril) 15 mg HSPRN PRN ORAL Insomnia 03/07/18 19:00 03/14/18 18:59 Assessment/Plan Problem List: (1) Intractable abdominal pain ICD Codes: R10.9 - Unspecified abdominal pain SNOMED: 37460125, [id number] (2) Neoplasm of abdomen ICD Codes: D49.89 - Neoplasm of unspecified behavior of other specified sites SNOMED: 373863193 (3) Anemia ICD Codes: D64.9 - Anemia, unspecified SNOMED: 513431954 Assessment/Plan NPO surgical evaluation IV fluids check electrolytes anemia w/u dvt prophylaxis. Shavon Avalos MD Mar 08, 2018 12:58
--- NOTE | 2018-03-08 15:23 | Internal Med Progress Note ---
Subjective Physician Name Octavio Roblero Attending Physician Octavio Roblero MD Current Medications Medications (Trade) Dose Ordered Sig/Sebastien Route PRN Reason Start Time Stop Time Status Last Admin Dose Admin Acetaminophen (Tylenol) 650 mg Q4H PRN ORAL fever (temp>100.5F) 03/07/18 19:00 04/06/18 18:59 Al Hydroxide/Mg Hydroxide (Mylanta II) 30 ml Q6H PRN ORAL dyspepsia 03/07/18 19:00 04/06/18 18:59 Atorvastatin Calcium (Lipitor) 10 mg BEDTIME ORAL 03/07/18 23:15 04/06/18 23:14 Barium Sulfate (Readi-Cat 2) 450 ml NOW PRN ORAL Radiology Procedure 03/08/18 08:45 03/10/18 08:42 Dextrose (Dextrose 50%) 25 ml Q30M PRN IV Hypoglycemia 03/07/18 19:00 04/06/18 18:59 Dextrose (Dextrose 50%) 50 ml Q30M PRN IV Hypoglycemia 03/07/18 19:00 04/06/18 18:59 Dextrose/Sodium Chloride 1,000 ml @ 75 mls/hr [id number] IV 03/07/18 20:00 04/06/18 19:59 03/08/18 10:34 Diphenhydramine HCl (Benadryl) 25 mg Q6H PRN ORAL Itching/Pruritis 03/07/18 19:00 04/06/18 18:59 Docusate Sodium (Colace) 100 mg THREE TIMES A DAY ORAL 03/08/18 13:00 04/07/18 12:59 03/08/18 12:53 Fluoxetine HCl (PROzac) 60 mg DAILY ORAL 03/09/18 09:00 04/08/18 08:59 Gadobutrol (Gadavist) 7.5 mmol ONCE IV 03/08/18 12:15 03/08/18 23:59 Heparin Sodium (Porcine) (Heparin 5000 units/ml) 5,000 units EVERY 12 HOURS SUBQ 03/07/18 21:00 04/06/18 20:59 03/08/18 08:14 Iopamidol (Isovue-300 100ml) 100 ml NOW PRN INJ Radiology Procedure 03/07/18 17:00 03/09/18 16:59 Iopamidol (Isovue-300 100ml) 100 ml NOW PRN INJ Radiology Procedure 03/08/18 08:45 03/09/18 08:44 Iron Sucrose 100 mg/Sodium Chloride 60 ml @ 240 mls/hr BEDTIME IV 03/08/18 21:00 03/10/18 21:14 Lorazepam (Ativan 2mg/ml 1ml) 1 mg Q4H PRN IV agitation 03/07/18 19:00 03/14/18 18:59 Metoclopramide HCl (Reglan) 10 mg Q6H PRN IVP severe nausea 03/07/18 19:00 04/06/18 18:59 Morphine Sulfate (Morphine Sulfate) 2 mg Q4H PRN IVP severe Pain (Pain Scale 7-10) 03/07/18 19:00 03/14/18 18:59 Nitroglycerin (Ntg) 0.4 mg Q5M X 3 DOSES PRN SL Prn Chest Pain 03/07/18 19:00 04/06/18 18:59 Ondansetron HCl (Zofran) 4 mg Q6H PRN IVP Nausea & Vomiting 03/07/18 19:00 04/06/18 18:59 Pantoprazole (Protonix) 40 mg DAILY IV 03/08/18 09:00 04/07/18 08:59 03/08/18 08:13 Polyethylene Glycol (Miralax) 17 gm HSPRN PRN ORAL Constipation 03/07/18 19:00 04/06/18 18:59 Promethazine HCl (Phenergan) 25 mg Q6H PRN IM Refractory N/V 03/07/18 19:45 04/06/18 19:44 Spironolactone (Aldactone) 50 mg DAILY ORAL 03/08/18 09:00 04/07/18 08:59 03/08/18 08:12 Temazepam (Restoril) 15 mg HSPRN PRN ORAL Insomnia 03/07/18 19:00 03/14/18 18:59 Allergies: Coded Allergies: No Known Allergies (Unverified , 03/07/18) Subjective awake, alert, responsive, at bedside Objective Last Vital Signs Date Time Temp Pulse Resp B/P (MAP) Pulse Ox O2 Delivery O2 Flow Rate FiO2 03/08/18 12:00 97.7 96 18 117/67 (84) 99 03/08/18 09:00 Room Air Laboratory Tests Test 03/07/18 16:15 03/08/18 06:45 Urine Color Brown Urine Appearance Clear Urine pH 5 (4.5-8.0) Urine Specific [place] 1.015 (1.005-1.035) Urine Protein 2+ (NEGATIVE) H Urine Glucose (UA) Negative (NEGATIVE) Urine Ketones 1+ (NEGATIVE) H Urine Blood 1+ (NEGATIVE) H Urine Nitrite Negative (NEGATIVE) Urine Bilirubin 1+ (NEGATIVE) H Urine Ictotest Negative (NEGATIVE) Urine Urobilinogen 12 MG/DL (0.0-1.0) H Urine Leukocyte Esterase 1+ (NEGATIVE) H Urine RBC 2-4 /HPF (0 - 2) H Urine WBC 2-4 /HPF (0 - 2) Urine Squamous Epithelial Cells Few /LPF (NONE/OCC) Urine Amorphous Sediment Moderate /LPF (NONE) H Urine Bacteria Few /HPF (NONE) White Blood Count 11.1 K/UL (4.8-10.8) H Red Blood Count 2.93 M/UL (4.20-5.40) L Hemoglobin 7.6 G/DL (12.0-16.0) L Hematocrit 24.2 % (37.0-47.0) L Mean Corpuscular Volume 82 FL (80-99) Mean Corpuscular Hemoglobin 26.1 PG (27.0-31.0) L Mean Corpuscular Hemoglobin Concent 31.6 G/DL (32.0-36.0) L Red Cell Distribution Width 14.0 % (11.6-14.8) Platelet Count 321 K/UL (150-450) Mean Platelet Volume 7.0 FL (6.5-10.1) Neutrophils (%) (Auto) % (45.0-75.0) Lymphocytes (%) (Auto) % (20.0-45.0) Monocytes (%) (Auto) % (1.0-10.0) Eosinophils (%) (Auto) % (0.0-3.0) Basophils (%) (Auto) % (0.0-2.0) Differential Total Cells Counted 100 Neutrophils % (Manual) 76 % (45-75) H Lymphocytes % (Manual) 13 % (20-45) L Monocytes % (Manual) 9 % (1-10) Eosinophils % (Manual) 1 % (0-3) Basophils % (Manual) 1 % (0-2) Band Neutrophils 0 % (0-8) Platelet Estimate Adequate Platelet Morphology Normal Hypochromasia 3+ Anisocytosis 1+ Erythrocyte Sedimentation Rate 100 MM/HR (0-30) H Reticulocyte Count 2.0 % (0.0-2.0) Prothrombin Time 11.8 SEC (9.30-11.50) H Prothromb Time International Ratio 1.1 (0.9-1.1) Activated Partial Thromboplast Time 30 SEC (23-33) Sodium Level 135 MMOL/L (136-145) L Potassium Level 3.3 MMOL/L (3.5-5.1) L Chloride Level 102 MMOL/L (98-107) Carbon Dioxide Level 28 MMOL/L (21-32) Anion Gap 5 mmol/L (5-15) Blood Urea Nitrogen 8 mg/dL (7-18) Creatinine 1.0 MG/DL (0.55-1.30) Estimat Glomerular Filtration Rate mL/min (>60) Glucose Level 128 MG/DL (74-106) H Calcium Level 9.3 MG/DL (8.5-10.1) Iron Level 11 ug/dL (50-175) L Total Iron Binding Capacity 132 ug/dL (250-450) L Percent Iron Saturation 8 % (15-50) L Unsaturated Iron Binding 121 ug/dL (112-346) Total Bilirubin 0.6 MG/DL (0.2-1.0) Aspartate Amino Transf (AST/SGOT) 53 U/L (15-37) H Alanine Aminotransferase (ALT/SGPT) 53 U/L (12-78) Alkaline Phosphatase 82 U/L (46-116) Lactate Dehydrogenase 162 U/L (81-234) Total Protein 6.7 G/DL (6.4-8.2) Albumin 1.6 G/DL (3.4-5.0) L Globulin 5.1 g/dL Albumin/Globulin Ratio 0.3 (1.0-2.7) L Amylase Level 38 U/L (25-115) Lipase 183 U/L (73-393) Carcinoembryonic Antigen Pending Vitamin B12 Level 1552 PG/ML (193-986) H Folate 11.0 NG/ML (8.6-58.9) Intake and Output 03/07/18 03/08/18 19:00 07:00 Intake Total 2300 ml Balance 2300 ml Intake IV Total 2300 ml # Voids 1 1 Objective General: No acute distress, awake and alert HEENT: NCAT, sclera anicteric, PERRL, EOMI. Neck: Supple, no significant jugular venous distention, Lungs: Good inspiratory effort,, no Wheeze or Rales. Heart: Regular rate and rhythm, normal S1/S2, no murmurs Abdomen: soft, Left side tenderness, nondistended. Normoactive bowel sounds. Extremities: No Cyanosis , clubbing or edema. Neuro: A&O x 3, Able to move all extremities Skin: warm, no rashes or lesions Psych: Normal mood and affect Assessment/Plan Assessment/Plan 1. 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 2. Constipation. 3. Fever and chills. 4. Hypertension. 5. Hypercholesterolemia. Plan: Surgery consult noted for MRI of abdomen monitor Labs Full code. Octavio Roblero MD Mar 08, 2018 15:23
--- NOTE | 2018-03-08 15:40 | Diagnostic Imaging Report ---
Indication:Abdominal pain Technique: Grayscale and duplex Doppler imaging of the abdomen performed. Comparison: None Findings: Large mass demonstrated in the upper abdomen/jori hepatis region. The mass is about 6 x 3.5 x 6.7 cm. The mass appears solid and mildly heterogeneous with dopplerable blood flow. This was further evaluated on CT. Please refer to the CT report. The gallbladder is not seen. The mass extends and involves the area of the gallbladder fossa. Spleen is not enlarged. Main portal vein is patent. There is a left renal cyst 1.4 cm in size. The pancreas is grossly unremarkable as visualized. There is no hydronephrosis or free fluid. No biliary ductal dilatation demonstrated. The CBD is 6 mm. IMPRESSION: Large mass in the area of the jori hepatis suspicious for malignant tumor. Left renal cyst. Please refer to the CT report for more information
[2018-03-08 16:00] VITALS: BP 118/65
--- NOTE | 2018-03-08 16:54 | Diagnostic Imaging Report ---
Indication: Technique: MRI of the abdomen was performed in a 1.5 Rufina magnet. Pulse sequences obtained include coronal and axial T2 single shot fast spin echo breathhold and respiratory gated coronal T2 3-D M.R.C.P.; this data set was displayed in different projections or MIPs. In addition, multiple coronal oblique thin T2 weighted, fat saturated SE sequences obtained through the CBD. Axial T2 fast spin-echo fat saturation, axial 2-D fiesta, axial coronal pre and post dynamic gadolinium-enhanced T1 lava. Comparison: None Findings: The study is significantly degraded by motion especially the gadolinium-enhanced sequences. There is a heterogeneous mass in the jori hepatis demonstrated with areas of low T1 and high T2 signal likely representing small areas of necrosis. The mass likely enhances but is not evaluated well on post gadolinium images due to motion. The mass is intimately associated with the antral region of the stomach and pylorus as well as the first portion of duodenum. None of these structures are seen well in relation to the mass. Gallbladder is also not seen. The tumor occupies the space within the gallbladder fossa and jori hepatis. There is no intrahepatic biliary ductal dilatation with poor visualization of the CBD at the jori hepatis. The CBD is seen again near the pancreatic head where it appears normal. The main pancreatic duct does not appear dilated.. There is periportal edema present. No ascites is appreciated. Trace bilateral pleural effusions are noted. IMPRESSION: Large heterogeneous mass in the jori hepatis not well evaluated well on this examination due to motion. Negative MRCP from the standpoint of biliary ductal disease. No evidence of biliary ductal dilatation. Gallbladder, first and second portions of the duodenum and antral portion of the stomach are not identified and intimately associated with the mass. Please refer to the CT report for more information
[2018-03-08 20:00] VITALS: BP 131/78
[2018-03-08] MEDS: Iron Sucrose 100 MG in NS 55 ML IV SCH (21:55)
[2018-03-09] VITALS: BP 139/75
[2018-03-09 04:00] VITALS: BP 129/76
[2018-03-09 07:57] VITALS: BP 136/76
--- NOTE | 2018-03-09 08:21 | Pulmonology Progress Note ---
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 This is probably of gallbladder origin. Abd US --> Large mass in the area of the jori hepatis suspicious for malignant tumor. MRI abdomen --> Large heterogeneous mass in the jori hepatis not well evaluated well on this examination due to motion. Negative MRCP from the standpoint of biliary ductal disease. No evidence of biliary ductal dilatation. Gallbladder, first and second portions of the duodenum and antral portion of the stomach are not identified and intimately associated with the mass IVF diet as tolerated antiemetics prn pain management surgery follows ;f/up with surgical recs re further care ? biopsy of the mass CEA pending monitor H&H with goal to keep hemoglobin above 7 anemia workup noted continue Venofer dietary eval add appetite stimulant Cyproheptadine DVT, GI prophylaxis bowel regimen GI follows leukocytosis likely reactive continue statin BP management with current regimen case discussed and evaluated by supervising physician Subjective Allergies: Coded Allergies: No Known Allergies (Unverified , 03/07/18) Subjective no CP no SOB denies abdominal pain, but reports generalized weakness and poor appetite Objective Last 24 Hour Vital Signs Date Time Temp Pulse Resp B/P (MAP) Pulse Ox O2 Delivery O2 Flow Rate FiO2 03/09/18 07:57 98.1 96 18 136/76 (96) 94 03/09/18 04:00 89 03/09/18 04:00 97.2 88 19 129/76 (93) 95 03/09/18 00:00 96.6 81 19 139/75 (96) 96 03/09/18 00:00 106 03/08/18 21:00 Room Air 03/08/18 20:00 104 03/08/18 20:00 97.7 90 19 131/78 (95) 96 03/08/18 16:00 102 03/08/18 16:00 97.0 94 18 118/65 (82) 96 03/08/18 12:00 108 03/08/18 12:00 97.7 96 18 117/67 (84) 99 03/08/18 09:00 Room Air Intake and Output 03/08/18 03/09/18 19:00 07:00 Intake Total 1075 ml 675 ml Balance 1075 ml 675 ml Intake Oral 250 ml IV Total 825 ml 675 ml # Voids 2 2 General Appearance: no acute distress, other - awake, responsive HEENT: normocephalic, atraumatic, anicteric Respiratory/Chest: lungs clear, no respiratory distress, no accessory muscle use Cardiovascular: normal peripheral pulses, normal rate, no JVD Abdomen: normal bowel sounds, soft, non tender Extremities: no edema Neurologic/Psychiatric: alert, responsive Current Medications Medications (Trade) Dose Ordered Sig/Sebastien Route PRN Reason Start Time Stop Time Status Last Admin Dose Admin Acetaminophen (Tylenol) 650 mg Q4H PRN ORAL fever (temp>100.5F) 03/07/18 19:00 04/06/18 18:59 Al Hydroxide/Mg Hydroxide (Mylanta II) 30 ml Q6H PRN ORAL dyspepsia 03/07/18 19:00 04/06/18 18:59 Atorvastatin Calcium (Lipitor) 10 mg BEDTIME ORAL 03/07/18 23:15 04/06/18 23:14 03/08/18 21:56 Barium Sulfate (Readi-Cat 2) 450 ml NOW PRN ORAL Radiology Procedure 03/08/18 08:45 03/10/18 08:42 Dextrose (Dextrose 50%) 25 ml Q30M PRN IV Hypoglycemia 03/07/18 19:00 04/06/18 18:59 Dextrose (Dextrose 50%) 50 ml Q30M PRN IV Hypoglycemia 03/07/18 19:00 04/06/18 18:59 Dextrose/Sodium Chloride 1,000 ml @ 75 mls/hr [id number] IV 03/07/18 20:00 04/06/18 19:59 03/08/18 21:56 Diphenhydramine HCl (Benadryl) 25 mg Q6H PRN ORAL Itching/Pruritis 03/07/18 19:00 04/06/18 18:59 Docusate Sodium (Colace) 100 mg THREE TIMES A DAY ORAL 03/08/18 13:00 04/07/18 12:59 03/08/18 12:53 Fluoxetine HCl (PROzac) 60 mg DAILY ORAL 03/09/18 09:00 04/08/18 08:59 Heparin Sodium (Porcine) (Heparin 5000 units/ml) 5,000 units EVERY 12 HOURS SUBQ 03/07/18 21:00 04/06/18 20:59 03/08/18 21:57 Iopamidol (Isovue-300 100ml) 100 ml NOW PRN INJ Radiology Procedure 03/07/18 17:00 03/09/18 16:59 Iopamidol (Isovue-300 100ml) 100 ml NOW PRN INJ Radiology Procedure 03/08/18 08:45 03/09/18 08:44 Iron Sucrose 100 mg/Sodium Chloride 60 ml @ 240 mls/hr BEDTIME IV 03/08/18 21:00 03/10/18 21:14 03/08/18 21:55 Lorazepam (Ativan 2mg/ml 1ml) 1 mg Q4H PRN IV agitation 03/07/18 19:00 03/14/18 18:59 Metoclopramide HCl (Reglan) 10 mg Q6H PRN IVP severe nausea 03/07/18 19:00 04/06/18 18:59 Morphine Sulfate (Morphine Sulfate) 2 mg Q4H PRN IVP severe Pain (Pain Scale 7-10) 03/07/18 19:00 03/14/18 18:59 Nitroglycerin (Ntg) 0.4 mg Q5M X 3 DOSES PRN SL Prn Chest Pain 03/07/18 19:00 04/06/18 18:59 Ondansetron HCl (Zofran) 4 mg Q6H PRN IVP Nausea & Vomiting 03/07/18 19:00 04/06/18 18:59 Pantoprazole (Protonix) 40 mg DAILY IV 03/08/18 09:00 04/07/18 08:59 03/08/18 08:13 Polyethylene Glycol (Miralax) 17 gm HSPRN PRN ORAL Constipation 03/07/18 19:00 04/06/18 18:59 Promethazine HCl (Phenergan) 25 mg Q6H PRN IM Refractory N/V 03/07/18 19:45 04/06/18 19:44 Spironolactone (Aldactone) 50 mg DAILY ORAL 03/08/18 09:00 04/07/18 08:59 03/08/18 08:12 Temazepam (Restoril) 15 mg HSPRN PRN ORAL Insomnia 03/07/18 19:00 03/14/18 18:59 Rebecca Pillai NP Mar 09, 2018 08:21
[2018-03-09] MEDS: Pantoprazole Inj IV SCH (08:29)
[2018-03-09] MEDS: Heparin 5000 units/ml inj SUBQ SCH ×2 (08:30→20:22)
[2018-03-09] MEDS: Docusate 100mg cap ORAL SCH ×3 (08:30→17:51)
[2018-03-09] MEDS: Spironolactone 50mg tab ORAL SCH ×2 (08:30→08:32)
[2018-03-09 08:34] LABS: BASOPHILS % (AUTO) 0.6 % (0.0-2.0); EOSINOPHILS % (AUTO) 0.7 % (0.0-3.0); HEMATOCRIT 25.4 % (37.0-47.0); HEMOGLOBIN 8.1 G/DL (12.0-16.0); LYMPHOCYTES % (AUTO) 18.2 % (20.0-45.0); MEAN CORPUSCULAR VOLUME 83 FL (80-99); MONOCYTES % (AUTO) 13.6 % (1.0-10.0); NEUTROPHILS % (AUTO) 66.9 % (45.0-75.0); PLATELET COUNT 330 K/UL (150-450); RED BLOOD COUNT 3.05 M/UL (4.20-5.40); RED CELL DISTRIBUTION WIDTH 14.3 % (11.6-14.8); WHITE BLOOD COUNT 11.7 K/UL (4.8-10.8)
[2018-03-09 09:19] LABS: ALANINE AMINOTRANSFERASE 58 U/L (12-78); ALBUMIN 1.5 G/DL (3.4-5.0); ALBUMIN/GLOBULIN RATIO 0.3 (1.0-2.7); ALKALINE PHOSPHATASE 81 U/L (46-116); ANION GAP 8 mmol/L (5-15); ASPARTATE AMINO TRANSFERASE 56 U/L (15-37); BILIRUBIN,TOTAL 0.7 MG/DL (0.2-1.0); BLOOD UREA NITROGEN 9 mg/dL (7-18); CALCIUM 9.8 MG/DL (8.5-10.1); CARBON DIOXIDE 25 MMOL/L (21-32); CHLORIDE 102 MMOL/L (98-107); FERRITIN 290 NG/ML (8-388); SODIUM 134 MMOL/L (136-145)
[2018-03-09 09:35] LABS: % IRON SATURATION 30 % (15-50); IRON 42 ug/dL (50-175); TOTAL IRON BINDING CAPACITY 142 ug/dL (250-450)
[2018-03-09] MEDS: D5NS 1,000 ML IV SCH ×2 (09:48→23:38)
--- NOTE | 2018-03-09 09:52 | General Progress Note ---
Assessment/Plan Problem List: (1) gall bladder fossa mass (2) Constipation ICD Codes: K59.00 - Constipation, unspecified SNOMED: 56048459 (3) Weakness ICD Codes: R53.1 - Weakness SNOMED: 85507721 (4) Anemia ICD Codes: D64.9 - Anemia, unspecified SNOMED: 173586201 Assessment/Plan fu tumor markers CT guided biopsy fu surg and oncology EGD if needed Subjective ROS Limited/Unobtainable: Yes Allergies: Coded Allergies: No Known Allergies (Unverified , 03/07/18) Objective Last 24 Hour Vital Signs Date Time Temp Pulse Resp B/P (MAP) Pulse Ox O2 Delivery O2 Flow Rate FiO2 03/09/18 07:57 98.1 96 18 136/76 (96) 94 03/09/18 04:00 89 03/09/18 04:00 97.2 88 19 129/76 (93) 95 03/09/18 00:00 96.6 81 19 139/75 (96) 96 03/09/18 00:00 106 03/08/18 21:00 Room Air 03/08/18 20:00 104 03/08/18 20:00 97.7 90 19 131/78 (95) 96 03/08/18 16:00 102 03/08/18 16:00 97.0 94 18 118/65 (82) 96 03/08/18 12:00 108 03/08/18 12:00 97.7 96 18 117/67 (84) 99 Intake and Output 03/08/18 03/09/18 19:00 07:00 Intake Total 1075 ml 675 ml Balance 1075 ml 675 ml Intake Oral 250 ml IV Total 825 ml 675 ml # Voids 2 2 Laboratory Tests 03/09/18 07:20: White Blood Count 11.7H, Red Blood Count 3.05L, Hemoglobin 8.1L, Hematocrit 25.4L, Mean Corpuscular Volume 83, Mean Corpuscular Hemoglobin 26.6L, Mean Corpuscular Hemoglobin Concent 31.9L, Red Cell Distribution Width 14.3, Platelet Count 330, Mean Platelet Volume 6.7, Neutrophils (%) (Auto) 66.9, Lymphocytes (%) (Auto) 18.2L, Monocytes (%) (Auto) 13.6H, Eosinophils (%) (Auto ) 0.7, Basophils (%) (Auto) 0.6, Sodium Level 134L, Potassium Level 4.0, Chloride Level 102, Carbon Dioxide Level 25, Anion Gap 8, Blood Urea Nitrogen 9 , Creatinine 1.0, Estimat Glomerular Filtration Rate , Glucose Level 86, Calcium Level 9.8, Iron Level 42L, Total Iron Binding Capacity 142L, Percent Iron Saturation 30, Unsaturated Iron Binding 100L, Ferritin 290, Total Bilirubin 0.7, Aspartate Amino Transf (AST/SGOT) 56H, Alanine Aminotransferase ( ALT/SGPT) 58, Alkaline Phosphatase 81, Total Protein 6.9, Albumin 1.5L, Globulin 5.4, Albumin/Globulin Ratio 0.3L, Alpha Fetoprotein [Pending], Carcinoembryonic Antigen [Pending], CA 19-9 Antigen [Pending], Vitamin B12 Level 1675H, Folate 11.7 Height (Feet): 5 Height (Inches): 7.00 Weight (Pounds): 170 General Appearance: no apparent distress EENT: normal ENT inspection Abdomen: normal bowel sounds, non tender, soft Extremities: non-tender Mando Deleon MD Mar 09, 2018 09:52
[2018-03-09 12:00] VITALS: BP 128/79
[2018-03-09] MEDS: Cyproheptadine HCl 4mg tab ORAL SCH ×2 (13:08→17:51)
--- NOTE | 2018-03-09 13:49 | General Surgery Progress Note ---
General Surgery-Progress Note Subjective Additional Comments no acute events. MRI reviewed Objective Last 24 Hour Vital Signs Date Time Temp Pulse Resp B/P (MAP) Pulse Ox O2 Delivery O2 Flow Rate FiO2 03/09/18 12:00 97.1 103 18 128/79 (95) 97 03/09/18 09:00 Room Air 03/09/18 08:00 93 03/09/18 07:57 98.1 96 18 136/76 (96) 94 03/09/18 04:00 89 03/09/18 04:00 97.2 88 19 129/76 (93) 95 03/09/18 00:00 96.6 81 19 139/75 (96) 96 03/09/18 00:00 106 03/08/18 21:00 Room Air 03/08/18 20:00 104 03/08/18 20:00 97.7 90 19 131/78 (95) 96 03/08/18 16:00 102 03/08/18 16:00 97.0 94 18 118/65 (82) 96 I&O Intake and Output 03/08/18 03/09/18 19:00 07:00 Intake Total 1075 ml 675 ml Balance 1075 ml 675 ml Intake Oral 250 ml IV Total 825 ml 675 ml # Voids 2 2 Drains: none Cardiovascular: RSR Respiratory: clear Abdomen: soft, non-tender, present bowel sounds Extremities: no cyanosis Laboratory Tests Test 03/09/18 07:20 03/09/18 10:00 White Blood Count 11.7 K/UL (4.8-10.8) H Red Blood Count 3.05 M/UL (4.20-5.40) L Hemoglobin 8.1 G/DL (12.0-16.0) L Hematocrit 25.4 % (37.0-47.0) L Mean Corpuscular Volume 83 FL (80-99) Mean Corpuscular Hemoglobin 26.6 PG (27.0-31.0) L Mean Corpuscular Hemoglobin Concent 31.9 G/DL (32.0-36.0) L Red Cell Distribution Width 14.3 % (11.6-14.8) Platelet Count 330 K/UL (150-450) Mean Platelet Volume 6.7 FL (6.5-10.1) Neutrophils (%) (Auto) 66.9 % (45.0-75.0) Lymphocytes (%) (Auto) 18.2 % (20.0-45.0) L Monocytes (%) (Auto) 13.6 % (1.0-10.0) H Eosinophils (%) (Auto) 0.7 % (0.0-3.0) Basophils (%) (Auto) 0.6 % (0.0-2.0) Sodium Level 134 MMOL/L (136-145) L Potassium Level 4.0 MMOL/L (3.5-5.1) Chloride Level 102 MMOL/L (98-107) Carbon Dioxide Level 25 MMOL/L (21-32) Anion Gap 8 mmol/L (5-15) Blood Urea Nitrogen 9 mg/dL (7-18) Creatinine 1.0 MG/DL (0.55-1.30) Estimat Glomerular Filtration Rate mL/min (>60) Glucose Level 86 MG/DL (74-106) Calcium Level 9.8 MG/DL (8.5-10.1) Iron Level 42 ug/dL (50-175) L Total Iron Binding Capacity 142 ug/dL (250-450) L Percent Iron Saturation 30 % (15-50) Unsaturated Iron Binding 100 ug/dL (112-346) L Ferritin 290 NG/ML (8-388) Total Bilirubin 0.7 MG/DL (0.2-1.0) Aspartate Amino Transf (AST/SGOT) 56 U/L (15-37) H Alanine Aminotransferase (ALT/SGPT) 58 U/L (12-78) Alkaline Phosphatase 81 U/L (46-116) Total Protein 6.9 G/DL (6.4-8.2) Albumin 1.5 G/DL (3.4-5.0) L Globulin 5.4 g/dL Albumin/Globulin Ratio 0.3 (1.0-2.7) L Alpha Fetoprotein Pending Carcinoembryonic Antigen Pending CA 19-9 Antigen Pending Vitamin B12 Level 1675 PG/ML (193-986) H Folate 11.7 NG/ML (8.6-58.9) Stool Occult Blood Pending Plan Problems: (1) Neoplasm of abdomen Assessment & Plan: 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 GB vs gastric vs colon? CT reviewed MRI reviewed tumor markers will discuss with GI about EUS biopsy vs CT guided biopsy will follow with recs. thank you. Klever Thurman Mar 09, 2018 13:49
--- NOTE | 2018-03-09 15:17 | Cardiology Report ---
APPROVED REPORT EKG Measurement Heart [id number] Sinus tachycardia Possible Left atrial enlargement Left axis deviation Abnormal ECG
[2018-03-09 16:00] VITALS: BP 134/76
--- NOTE | 2018-03-09 18:20 | Internal Med Progress Note ---
Subjective Date of Service: Mar 09, 2018 Physician Name Hernandez Bonilla Attending Physician Octavio Roblero MD Current Medications Medications (Trade) Dose Ordered Sig/Sebastien Route PRN Reason Start Time Stop Time Status Last Admin Dose Admin Acetaminophen (Tylenol) 650 mg Q4H PRN ORAL fever (temp>100.5F) 03/07/18 19:00 04/06/18 18:59 03/09/18 15:39 Al Hydroxide/Mg Hydroxide (Mylanta II) 30 ml Q6H PRN ORAL dyspepsia 03/07/18 19:00 04/06/18 18:59 Atorvastatin Calcium (Lipitor) 10 mg BEDTIME ORAL 03/07/18 23:15 04/06/18 23:14 03/08/18 21:56 Barium Sulfate (Readi-Cat 2) 450 ml NOW PRN ORAL Radiology Procedure 03/08/18 08:45 03/10/18 08:42 Cyproheptadine HCl (Periactin) 4 mg THREE TIMES A DAY ORAL 03/09/18 13:00 04/08/18 12:59 03/09/18 17:51 Dextrose (Dextrose 50%) 25 ml Q30M PRN IV Hypoglycemia 03/07/18 19:00 04/06/18 18:59 Dextrose (Dextrose 50%) 50 ml Q30M PRN IV Hypoglycemia 03/07/18 19:00 04/06/18 18:59 Dextrose/Sodium Chloride 1,000 ml @ 75 mls/hr [id number] IV 03/09/18 09:45 04/08/18 09:44 03/09/18 09:48 Diphenhydramine HCl (Benadryl) 25 mg Q6H PRN ORAL Itching/Pruritis 03/07/18 19:00 04/06/18 18:59 Docusate Sodium (Colace) 100 mg THREE TIMES A DAY ORAL 03/08/18 13:00 04/07/18 12:59 03/09/18 17:51 Fluoxetine HCl (PROzac) 60 mg DAILY ORAL 03/09/18 09:00 04/08/18 08:59 03/09/18 08:30 Heparin Sodium (Porcine) (Heparin 5000 units/ml) 5,000 units EVERY 12 HOURS SUBQ 03/07/18 21:00 04/06/18 20:59 03/09/18 08:30 Iron Sucrose 100 mg/Sodium Chloride 60 ml @ 240 mls/hr BEDTIME IV 03/08/18 21:00 03/10/18 21:14 03/08/18 21:55 Lorazepam (Ativan 2mg/ml 1ml) 1 mg Q4H PRN IV agitation 03/07/18 19:00 03/14/18 18:59 Metoclopramide HCl (Reglan) 10 mg Q6H PRN IVP severe nausea 03/07/18 19:00 04/06/18 18:59 Morphine Sulfate (Morphine Sulfate) 2 mg Q4H PRN IVP severe Pain (Pain Scale 7-10) 03/07/18 19:00 03/14/18 18:59 Nitroglycerin (Ntg) 0.4 mg Q5M X 3 DOSES PRN SL Prn Chest Pain 03/07/18 19:00 04/06/18 18:59 Ondansetron HCl (Zofran) 4 mg Q6H PRN IVP Nausea & Vomiting 03/07/18 19:00 04/06/18 18:59 Pantoprazole (Protonix) 40 mg DAILY IV 03/08/18 09:00 04/07/18 08:59 03/09/18 08:29 Polyethylene Glycol (Miralax) 17 gm HSPRN PRN ORAL Constipation 03/07/18 19:00 04/06/18 18:59 Promethazine HCl (Phenergan) 25 mg Q6H PRN IM Refractory N/V 03/07/18 19:45 04/06/18 19:44 Spironolactone (Aldactone) 50 mg DAILY ORAL 03/08/18 09:00 04/07/18 08:59 03/09/18 08:32 Temazepam (Restoril) 15 mg HSPRN PRN ORAL Insomnia 03/07/18 19:00 03/14/18 18:59 Allergies: Coded Allergies: No Known Allergies (Unverified , 03/07/18) ROS Limited/Unobtainable: No Constitutional: Reports: no symptoms HEENT: Reports: no symptoms Cardiovascular: Reports: no symptoms Respiratory: Reports: no symptoms Gastrointestinal/Abdominal: Reports: no symptoms Genitourinary: Reports: no symptoms Neurologic/Psychiatric: Reports: no symptoms Subjective 77 YO F admitted with left low quad abdominal pain and constipation. Now new RUQ mass. Cover for Int Chong-Dr Roblero Objective Last Vital Signs Date Time Temp Pulse Resp B/P (MAP) Pulse Ox O2 Delivery O2 Flow Rate FiO2 03/09/18 16:09 98.1 03/09/18 16:00 108 03/09/18 16:00 18 134/76 (95) 95 03/09/18 09:00 Room Air Laboratory Tests Test 03/09/18 07:20 03/09/18 10:00 White Blood Count 11.7 K/UL (4.8-10.8) H Red Blood Count 3.05 M/UL (4.20-5.40) L Hemoglobin 8.1 G/DL (12.0-16.0) L Hematocrit 25.4 % (37.0-47.0) L Mean Corpuscular Volume 83 FL (80-99) Mean Corpuscular Hemoglobin 26.6 PG (27.0-31.0) L Mean Corpuscular Hemoglobin Concent 31.9 G/DL (32.0-36.0) L Red Cell Distribution Width 14.3 % (11.6-14.8) Platelet Count 330 K/UL (150-450) Mean Platelet Volume 6.7 FL (6.5-10.1) Neutrophils (%) (Auto) 66.9 % (45.0-75.0) Lymphocytes (%) (Auto) 18.2 % (20.0-45.0) L Monocytes (%) (Auto) 13.6 % (1.0-10.0) H Eosinophils (%) (Auto) 0.7 % (0.0-3.0) Basophils (%) (Auto) 0.6 % (0.0-2.0) Sodium Level 134 MMOL/L (136-145) L Potassium Level 4.0 MMOL/L (3.5-5.1) Chloride Level 102 MMOL/L (98-107) Carbon Dioxide Level 25 MMOL/L (21-32) Anion Gap 8 mmol/L (5-15) Blood Urea Nitrogen 9 mg/dL (7-18) Creatinine 1.0 MG/DL (0.55-1.30) Estimat Glomerular Filtration Rate mL/min (>60) Glucose Level 86 MG/DL (74-106) Calcium Level 9.8 MG/DL (8.5-10.1) Iron Level 42 ug/dL (50-175) L Total Iron Binding Capacity 142 ug/dL (250-450) L Percent Iron Saturation 30 % (15-50) Unsaturated Iron Binding 100 ug/dL (112-346) L Ferritin 290 NG/ML (8-388) Total Bilirubin 0.7 MG/DL (0.2-1.0) Aspartate Amino Transf (AST/SGOT) 56 U/L (15-37) H Alanine Aminotransferase (ALT/SGPT) 58 U/L (12-78) Alkaline Phosphatase 81 U/L (46-116) Total Protein 6.9 G/DL (6.4-8.2) Albumin 1.5 G/DL (3.4-5.0) L Globulin 5.4 g/dL Albumin/Globulin Ratio 0.3 (1.0-2.7) L Alpha Fetoprotein Pending Carcinoembryonic Antigen Pending CA 19-9 Antigen Pending Vitamin B12 Level 1675 PG/ML (193-986) H Folate 11.7 NG/ML (8.6-58.9) Stool Occult Blood Pending Microbiology Date/Time Source Procedure Growth Status 03/07/18 14:50 Blood Blood Culture - Preliminary NO GROWTH AFTER 24 HOURS Resulted 03/07/18 14:35 Blood Blood Culture - Preliminary NO GROWTH AFTER 24 HOURS Resulted Intake and Output 03/08/18 03/09/18 19:00 07:00 Intake Total 1075 ml 675 ml Balance 1075 ml 675 ml Intake Oral 250 ml IV Total 825 ml 675 ml # Voids 2 2 Objective Objective General: No acute distress, awake and alert HEENT: NCAT, sclera anicteric, PERRL, EOMI. Neck: Supple, no significant jugular venous distention, Lungs: Good inspiratory effort,, no Wheeze or Rales. Heart: Regular rate and rhythm, normal S1/S2, no murmurs Abdomen: soft, Left side tenderness, nondistended. Normoactive bowel sounds. Extremities: No Cyanosis , clubbing or edema. Neuro: A&O x 3, Able to move all extremities Skin: warm, no rashes or lesions Psych: Normal mood and affect Assessment/Plan Problem List: (1) HTN (hypertension) Assessment & Plan: Continue spironolactone (2) Hypercholesterolemia (3) Constipation (4) Intractable abdominal pain (5) gall bladder fossa mass Assessment & Plan: Await CT guided biopsy and onc consult. (6) Anemia Status: not improved Hernandez Bonilla MD Mar 09, 2018 18:20
[2018-03-09 20:00] VITALS: BP 112/43
[2018-03-09] MEDS: Iron Sucrose 100 MG in NS 55 ML IV SCH (20:21)
--- NOTE | 2018-03-09 21:38 | Consultation ---
Consult Note Consult Note HEMATOLOGY-ONCOLOGY CONSULTATION NOTE REFERRING MD: Octavio Roblero REASON FOR CONSULT: Leukocytosis, anemia, neoplasm abd DOS: 03/09/2018 HPI 77 year old female with multiple medical comorbidities presented with complaints of fevers, chills, night sweats, abdominal discomfort, fatigue, constipation. states gradual onset of symptoms over few weeks. on admission had CT scan which demonstrated RUQ mass. Chart reviewed, patient examined. Patient unaware of mass. 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 Currently feeling okay. Somewhat poor historian. States cannot recall colonoscopy but had virtual CT scope a year ago in [place] somewhere. States BM last night and normal. No blood seen. Hematology-Oncology services consulted for the evaluation of abd mass, anemia, leukocytosis. Current wbc at 11.7 and hgb at 8.1. CT reviewed, anemia w/u ordered. Medication History Scheduled Atorvastatin Calcium* (Atorvastatin Calcium*), 10 MG ORAL BEDTIME, (Reported) Fluoxetine Hcl* (Fluoxetine Hcl*), 40 MG ORAL DAILY, (Reported) Spironolactone* (Spironolactone*), 50 MG ORAL DAILY, (Reported) Patient History History Provided By: Patient, Medical Record, PMD Healthcare decision maker Kavin Resuscitation status Full Code Advanced Directive on File Past Medical/Surgical History Past Medical/Surgical History: (1) Weakness (2) Obstipation (3) Fever (4) Neoplasm of abdomen (5) Constipation (6) Anemia Review of Systems All Other Systems: negative except mentioned in HPI Physical Exam Vitals: Reviewed. General Appearance: no apparent distress, alert Lines, tubes and drains: peripheral HEENT: normocephalic, mucous membranes moist Neck: normal inspection Respiratory/Chest: normal breath sounds, no respiratory distress, no accessory muscle use Cardiovascular/Chest: normal rate, regular rhythm Abdomen: normal bowel sounds, non tender, soft, no organomegaly, no mass, other - prior lower midline scar well healed Extremities: normal inspection Skin Exam: warm/dry Neurologic: alert, responsive LABS: 03/09: wbc 11.7 hgb 8.1 plt 347 Current Medications Medications (Trade) Dose Ordered Sig/Sebastien Route PRN Reason Start Time Stop Time Status Last Admin Dose Admin Acetaminophen (Tylenol) 650 mg Q4H PRN ORAL fever (temp>100.5F) 03/07/18 19:00 04/06/18 18:59 Al Hydroxide/Mg Hydroxide (Mylanta II) 30 ml Q6H PRN ORAL dyspepsia 03/07/18 19:00 04/06/18 18:59 Atorvastatin Calcium (Lipitor) 10 mg BEDTIME ORAL 03/07/18 23:15 04/06/18 23:14 Barium Sulfate (Readi-Cat 2) 450 ml NOW PRN ORAL Radiology Procedure 03/08/18 08:45 03/10/18 08:42 Dextrose (Dextrose 50%) 25 ml Q30M PRN IV Hypoglycemia 03/07/18 19:00 04/06/18 18:59 Dextrose (Dextrose 50%) 50 ml Q30M PRN IV Hypoglycemia 03/07/18 19:00 04/06/18 18:59 Dextrose/Sodium Chloride 1,000 ml @ 75 mls/hr [id number] IV 03/07/18 20:00 04/06/18 19:59 03/08/18 10:34 Diphenhydramine HCl (Benadryl) 25 mg Q6H PRN ORAL Itching/Pruritis 03/07/18 19:00 04/06/18 18:59 Docusate Sodium (Colace) 100 mg THREE TIMES A DAY ORAL 03/08/18 13:00 04/07/18 12:59 Fluoxetine HCl (PROzac) 60 mg DAILY ORAL 03/09/18 09:00 04/08/18 08:59 Gadobutrol (Gadavist) 7.5 mmol ONCE IV 03/08/18 12:15 03/08/18 23:59 Heparin Sodium (Porcine) (Heparin 5000 units/ml) 5,000 units EVERY 12 HOURS SUBQ 03/07/18 21:00 04/06/18 20:59 03/08/18 08:14 Iopamidol (Isovue-300 100ml) 100 ml NOW PRN INJ Radiology Procedure 03/07/18 17:00 03/09/18 16:59 Iopamidol (Isovue-300 100ml) 100 ml NOW PRN INJ Radiology Procedure 03/08/18 08:45 03/09/18 08:44 Iron Sucrose 100 mg/Sodium Chloride 60 ml @ 240 mls/hr BEDTIME IV 03/08/18 21:00 03/10/18 21:14 Lorazepam (Ativan 2mg/ml 1ml) 1 mg Q4H PRN IV agitation 03/07/18 19:00 03/14/18 18:59 Metoclopramide HCl (Reglan) 10 mg Q6H PRN IVP severe nausea 03/07/18 19:00 12 18:59 Morphine Sulfate (Morphine Sulfate) 2 mg Q4H PRN IVP severe Pain (Pain Scale 7-10) 03/07/18 19:00 03/14/18 18:59 Nitroglycerin (Ntg) 0.4 mg Q5M X 3 DOSES PRN SL Prn Chest Pain 03/07/18 19:00 12 18:59 Ondansetron HCl (Zofran) 4 mg Q6H PRN IVP Nausea & Vomiting 03/07/18 19:00 04/06/18 18:59 Pantoprazole (Protonix) 40 mg DAILY IV 03/08/18 09:00 04/07/18 08:59 03/08/18 08:13 Polyethylene Glycol (Miralax) 17 gm HSPRN PRN ORAL Constipation 03/07/18 19:00 04/06/18 18:59 Promethazine HCl (Phenergan) 25 mg Q6H PRN IM Refractory N/V 03/07/18 19:45 04/06/18 19:44 Spironolactone (Aldactone) 50 mg DAILY ORAL 03/08/18 09:00 04/07/18 08:59 03/08/18 08:12 Temazepam (Restoril) 15 mg HSPRN PRN ORAL Insomnia 03/07/18 19:00 03/14/18 18:59 ASSESSMENT AND RECOMMENDATIONS # Anemia of chronic disease due to underlying chronic medical issues, multifactorial. --> Anemia w/u has been reviewed. Ferritin at 290 --> No evidence of hemolysis noted, peripheral smear has been reviewed. --> Hgb gosl >7, transfuse as needed # Leukocytosis. Likely related to underlying infection versus reactive process. --> Imaging has been reviewed. CXR shows no acute disease --> Blood cultures and urine cultures are pending. --> Currently not on abx # Abd mass. 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 Etiology unknown. GB vs gastric vs colon? --> CT: Large heterogeneous enhancing mass in the jori hepatis contiguous with the gallbladder fossa measuring 7 x 5.6 x 6 cm suspicious for malignant tumor. This is probably of gallbladder origin. Would consider gastric or duodenal origin. Would consider infection although much less likely based on the appearance. Correlate clinically. --> recommend MRI for better evaluation of tumor if possible --> tumor markers - pending --> pending ultrasound --> may need biopsy but hold off for now. # Constipation. # Weakness. GREATLY APPRECIATE CONSULTATION. Abner Silva MD Mar 09, 2018 21:38
[2018-03-10] VITALS: BP 131/68
[2018-03-10 07:50] LABS: HEMATOCRIT 23.8 % (37.0-47.0); HEMOGLOBIN 7.5 G/DL (12.0-16.0); MEAN CORPUSCULAR VOLUME 83 FL (80-99); PLATELET COUNT 347 K/UL (150-450); RED BLOOD COUNT 2.87 M/UL (4.20-5.40); RED CELL DISTRIBUTION WIDTH 14.5 % (11.6-14.8)
[2018-03-10 08:00] VITALS: BP 114/68
[2018-03-10 08:12] LABS: ANION GAP 8 mmol/L (5-15); BLOOD UREA NITROGEN 12 mg/dL (7-18); CALCIUM 9.5 MG/DL (8.5-10.1); CARBON DIOXIDE 24 MMOL/L (21-32); CHLORIDE 107 MMOL/L (98-107); POTASSIUM 3.7 MMOL/L (3.5-5.1); SODIUM 139 MMOL/L (136-145)
--- NOTE | 2018-03-10 08:43 | Pulmonology Progress Note ---
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 This is probably of gallbladder origin. Abd US --> Large mass in the area of the jori hepatis suspicious for malignant tumor. MRI abdomen --> Large heterogeneous mass in the jori hepatis not well evaluated well on this examination due to motion. Negative MRCP from the standpoint of biliary ductal disease. No evidence of biliary ductal dilatation. Gallbladder, first and second portions of the duodenum and antral portion of the stomach are not identified and intimately associated with the mass IVF diet as tolerated antiemetics prn pain management surgery follows ;f/up with surgical recs re further care ? biopsy of the mass CEA pending monitor H&H with goal to keep hemoglobin above 7 anemia workup noted continue Venofer , dietary eval added appetite stimulant -Cyproheptadine dietary eval swallow eval leukocytosis likely reactive continue statin BP management with current regimen DVT, GI prophylaxis bowel regimen GI follows PT eval and Rx case discussed and evaluated by supervising physician Subjective Allergies: Coded Allergies: No Known Allergies (Unverified , 03/07/18) Subjective no CP no SOB denies abdominal pain, nursing noted difficulties with swallowing Objective Last 24 Hour Vital Signs Date Time Temp Pulse Resp B/P (MAP) Pulse Ox O2 Delivery O2 Flow Rate FiO2 03/10/18 04:00 84 03/10/18 00:00 97.3 72 19 131/68 (89) 94 03/10/18 00:00 81 03/09/18 21:00 Room Air 03/09/18 20:00 88 03/09/18 20:00 98.8 89 18 112/43 (66) 95 03/09/18 16:09 98.1 03/09/18 16:00 108 03/09/18 16:00 100.4 99 18 134/76 (95) 95 03/09/18 12:00 97.1 103 18 128/79 (95) 97 03/09/18 12:00 96 03/09/18 09:00 Room Air Intake and Output 03/09/18 03/10/18 18:59 06:59 Intake Total 1245 ml 1251 ml Balance 1245 ml 1251 ml Intake Oral 420 ml 400 ml IV Total 825 ml 851 ml # Voids 1 3 # Bowel Movements 1 Objective General Appearance: no acute distress, awake, responsive HEENT: normocephalic, atraumatic, anicteric Respiratory/Chest: lungs clear, no respiratory distress, no accessory muscle use Cardiovascular: normal peripheral pulses, normal rate, no JVD Abdomen: normal bowel sounds, soft, non tender Extremities: no edema Neurologic/Psychiatric: alert, responsive Microbiology Date/Time Source Procedure Growth Status 03/07/18 14:50 Blood Blood Culture - Preliminary NO GROWTH AFTER 48 HOURS Resulted 03/07/18 14:35 Blood Blood Culture - Preliminary NO GROWTH AFTER 48 HOURS Resulted Laboratory Tests 03/09/18 10:00: Stool Occult Blood [Pending] 03/10/18 05:45: White Blood Count 8.0, Red Blood Count 2.87L, Hemoglobin 7.5L, Hematocrit 23.8L , Mean Corpuscular Volume 83, Mean Corpuscular Hemoglobin 26.2L, Mean Corpuscular Hemoglobin Concent 31.5L, Red Cell Distribution Width 14.5, Platelet Count 347, Mean Platelet Volume 6.7, Neutrophils (%) (Auto) , Lymphocytes (%) (Auto) , Monocytes (%) (Auto) , Eosinophils (%) (Auto) , Basophils (%) (Auto) , Neutrophils % (Manual) [Pending], Lymphocytes % (Manual) [Pending], Platelet Estimate [Pending], Platelet Morphology [Pending], Sodium Level 139, Potassium Level 3.7, Chloride Level 107, Carbon Dioxide Level 24, Anion Gap 8, Blood Urea Nitrogen 12, Creatinine 1.0, Estimat Glomerular Filtration Rate , Glucose Level 122H, Calcium Level 9.5 Current Medications Medications (Trade) Dose Ordered Sig/Sebastien Route PRN Reason Start Time Stop Time Status Last Admin Dose Admin Acetaminophen (Tylenol) 650 mg Q4H PRN ORAL fever (temp>100.5F) 03/07/18 19:00 04/06/18 18:59 03/09/18 15:39 Al Hydroxide/Mg Hydroxide (Mylanta II) 30 ml Q6H PRN ORAL dyspepsia 03/07/18 19:00 04/06/18 18:59 Atorvastatin Calcium (Lipitor) 10 mg BEDTIME ORAL 03/07/18 23:15 04/06/18 23:14 03/09/18 20:21 Barium Sulfate (Readi-Cat 2) 450 ml NOW PRN ORAL Radiology Procedure 03/08/18 08:45 03/10/18 08:42 Cyproheptadine HCl (Periactin) 4 mg THREE TIMES A DAY ORAL 03/09/18 13:00 04/08/18 12:59 03/09/18 17:51 Dextrose (Dextrose 50%) 25 ml Q30M PRN IV Hypoglycemia 03/07/18 19:00 04/06/18 18:59 Dextrose (Dextrose 50%) 50 ml Q30M PRN IV Hypoglycemia 03/07/18 19:00 04/06/18 18:59 Dextrose/Sodium Chloride 1,000 ml @ 75 mls/hr [id number] IV 03/09/18 09:45 04/08/18 09:44 03/09/18 23:38 Diphenhydramine HCl (Benadryl) 25 mg Q6H PRN ORAL Itching/Pruritis 03/07/18 19:00 04/06/18 18:59 Docusate Sodium (Colace) 100 mg THREE TIMES A DAY ORAL 03/08/18 13:00 04/07/18 12:59 03/09/18 17:51 Fluoxetine HCl (PROzac) 60 mg DAILY ORAL 03/09/18 09:00 04/08/18 08:59 03/09/18 08:30 Heparin Sodium (Porcine) (Heparin 5000 units/ml) 5,000 units EVERY 12 HOURS SUBQ 03/07/18 21:00 04/06/18 20:59 03/09/18 20:22 Iron Sucrose 100 mg/Sodium Chloride 60 ml @ 240 mls/hr BEDTIME IV 03/08/18 21:00 03/10/18 21:14 03/09/18 20:21 Lorazepam (Ativan 2mg/ml 1ml) 1 mg Q4H PRN IV agitation 03/07/18 19:00 03/14/18 18:59 Metoclopramide HCl (Reglan) 10 mg Q6H PRN IVP severe nausea 03/07/18 19:00 04/06/18 18:59 Morphine Sulfate (Morphine Sulfate) 2 mg Q4H PRN IVP severe Pain (Pain Scale 7-10) 03/07/18 19:00 03/14/18 18:59 Nitroglycerin (Ntg) 0.4 mg Q5M X 3 DOSES PRN SL Prn Chest Pain 03/07/18 19:00 04/06/18 18:59 Ondansetron HCl (Zofran) 4 mg Q6H PRN IVP Nausea & Vomiting 03/07/18 19:00 04/06/18 18:59 Pantoprazole (Protonix) 40 mg DAILY IV 03/08/18 09:00 04/07/18 08:59 03/09/18 08:29 Polyethylene Glycol (Miralax) 17 gm HSPRN PRN ORAL Constipation 03/07/18 19:00 04/06/18 18:59 Promethazine HCl (Phenergan) 25 mg Q6H PRN IM Refractory N/V 03/07/18 19:45 04/06/18 19:44 Spironolactone (Aldactone) 50 mg DAILY ORAL 03/08/18 09:00 04/07/18 08:59 03/09/18 08:32 Temazepam (Restoril) 15 mg HSPRN PRN ORAL Insomnia 03/07/18 19:00 03/14/18 18:59 Rebecca Pillai [employer] SALES REPRESENTATIVE Mar 10, 2018 08:43
[2018-03-10] MEDS: Cyproheptadine HCl 4mg tab ORAL SCH ×3 (08:58→18:32)
[2018-03-10] MEDS: Docusate 100mg cap ORAL SCH ×3 (08:58→18:32)
[2018-03-10] MEDS: Pantoprazole Inj IV SCH (08:59)
[2018-03-10] MEDS: Spironolactone 50mg tab ORAL SCH (08:59)
[2018-03-10] MEDS: Heparin 5000 units/ml inj SUBQ SCH ×2 (09:04→21:06)
--- NOTE | 2018-03-10 09:47 | General Progress Note ---
Assessment/Plan Problem List: (1) gall bladder fossa mass (2) Constipation ICD Codes: K59.00 - Constipation, unspecified SNOMED: 62299070 (3) Weakness ICD Codes: R53.1 - Weakness SNOMED: 87690917 (4) Anemia ICD Codes: D64.9 - Anemia, unspecified SNOMED: 939033661 Assessment/Plan fu tumor markers fu surg and oncology cancel CT guided biopsy will plan EUS and FNA transfuse one unit today Subjective ROS Limited/Unobtainable: Yes Allergies: Coded Allergies: No Known Allergies (Unverified , 03/07/18) Objective Last 24 Hour Vital Signs Date Time Temp Pulse Resp B/P (MAP) Pulse Ox O2 Delivery O2 Flow Rate FiO2 03/10/18 04:00 84 03/10/18 00:00 97.3 72 19 131/68 (89) 94 03/10/18 00:00 81 03/09/18 21:00 Room Air 03/09/18 20:00 88 03/09/18 20:00 98.8 89 18 112/43 (66) 95 03/09/18 16:09 98.1 03/09/18 16:00 108 03/09/18 16:00 100.4 99 18 134/76 (95) 95 03/09/18 12:00 97.1 103 18 128/79 (95) 97 03/09/18 12:00 96 Intake and Output 03/09/18 03/10/18 18:59 06:59 Intake Total 1245 ml 1251 ml Balance 1245 ml 1251 ml Intake Oral 420 ml 400 ml IV Total 825 ml 851 ml # Voids 1 3 # Bowel Movements 1 Laboratory Tests 03/09/18 10:00: Stool Occult Blood [Pending] 03/10/18 05:45: White Blood Count 8.0, Red Blood Count 2.87L, Hemoglobin 7.5L, Hematocrit 23.8L , Mean Corpuscular Volume 83, Mean Corpuscular Hemoglobin 26.2L, Mean Corpuscular Hemoglobin Concent 31.5L, Red Cell Distribution Width 14.5, Platelet Count 347, Mean Platelet Volume 6.7, Neutrophils (%) (Auto) , Lymphocytes (%) (Auto) , Monocytes (%) (Auto) , Eosinophils (%) (Auto) , Basophils (%) (Auto) , Neutrophils % (Manual) [Pending], Lymphocytes % (Manual) [Pending], Platelet Estimate [Pending], Platelet Morphology [Pending], Sodium Level 139, Potassium Level 3.7, Chloride Level 107, Carbon Dioxide Level 24, Anion Gap 8, Blood Urea Nitrogen 12, Creatinine 1.0, Estimat Glomerular Filtration Rate , Glucose Level 122H, Calcium Level 9.5 Height (Feet): 5 Height (Inches): 7.00 Weight (Pounds): 170 General Appearance: alert EENT: normal ENT inspection Neck: supple Cardiovascular: normal rate Respiratory/Chest: lungs clear Abdomen: normal bowel sounds, non tender, soft Extremities: non-tender Mando Deleon MD Mar 10, 2018 09:47
[2018-03-10] MEDS ORDERED: D5NS 1000ml IV ONE (10:43)
[2018-03-10 11:45] VITALS: BP 121/74
[2018-03-10] MEDS: D5NS 1,000 ML IV SCH (12:25)
--- NOTE | 2018-03-10 14:56 | Internal Med Progress Note ---
Subjective Date of Service: Mar 10, 2018 Physician Name Hernandez Bonilla Attending Physician Octavio Roblero MD Current Medications Medications (Trade) Dose Ordered Sig/Sebastien Route PRN Reason Start Time Stop Time Status Last Admin Dose Admin Acetaminophen (Tylenol) 650 mg Q4H PRN ORAL fever (temp>100.5F) 03/07/18 19:00 04/06/18 18:59 03/09/18 15:39 Al Hydroxide/Mg Hydroxide (Mylanta II) 30 ml Q6H PRN ORAL dyspepsia 03/07/18 19:00 04/06/18 18:59 Atorvastatin Calcium (Lipitor) 10 mg BEDTIME ORAL 03/07/18 23:15 04/06/18 23:14 03/09/18 20:21 Cyproheptadine HCl (Periactin) 4 mg THREE TIMES A DAY ORAL 03/09/18 13:00 04/08/18 12:59 03/10/18 14:42 Dextrose (Dextrose 50%) 25 ml Q30M PRN IV Hypoglycemia 03/07/18 19:00 04/06/18 18:59 Dextrose (Dextrose 50%) 50 ml Q30M PRN IV Hypoglycemia 03/07/18 19:00 04/06/18 18:59 Dextrose/Sodium Chloride 1,000 ml @ 75 mls/hr [id number] IV 03/09/18 09:45 04/08/18 09:44 03/09/18 23:38 Diphenhydramine HCl (Benadryl) 25 mg Q6H PRN ORAL Itching/Pruritis 03/07/18 19:00 04/06/18 18:59 Docusate Sodium (Colace) 100 mg THREE TIMES A DAY ORAL 03/08/18 13:00 04/07/18 12:59 03/10/18 14:42 Fluoxetine HCl (PROzac) 60 mg DAILY ORAL 03/09/18 09:00 04/08/18 08:59 03/10/18 08:59 Heparin Sodium (Porcine) (Heparin 5000 units/ml) 5,000 units EVERY 12 HOURS SUBQ 03/07/18 21:00 04/06/18 20:59 03/10/18 09:04 Iron Sucrose 100 mg/Sodium Chloride 60 ml @ 240 mls/hr BEDTIME IV 03/08/18 21:00 03/10/18 21:14 03/09/18 20:21 Lorazepam (Ativan 2mg/ml 1ml) 1 mg Q4H PRN IV agitation 03/07/18 19:00 03/14/18 18:59 Metoclopramide HCl (Reglan) 10 mg Q6H PRN IVP severe nausea 03/07/18 19:00 04/06/18 18:59 Morphine Sulfate (Morphine Sulfate) 2 mg Q4H PRN IVP severe Pain (Pain Scale 7-10) 03/07/18 19:00 03/14/18 18:59 Nitroglycerin (Ntg) 0.4 mg Q5M X 3 DOSES PRN SL Prn Chest Pain 03/07/18 19:00 04/06/18 18:59 Ondansetron HCl (Zofran) 4 mg Q6H PRN IVP Nausea & Vomiting 03/07/18 19:00 04/06/18 18:59 Pantoprazole (Protonix) 40 mg DAILY IV 03/08/18 09:00 04/07/18 08:59 03/10/18 08:59 Polyethylene Glycol (Miralax) 17 gm HSPRN PRN ORAL Constipation 03/07/18 19:00 04/06/18 18:59 Promethazine HCl (Phenergan) 25 mg Q6H PRN IM Refractory N/V 03/07/18 19:45 04/06/18 19:44 Spironolactone (Aldactone) 50 mg DAILY ORAL 03/08/18 09:00 04/07/18 08:59 03/10/18 08:59 Temazepam (Restoril) 15 mg HSPRN PRN ORAL Insomnia 03/07/18 19:00 03/14/18 18:59 Allergies: Coded Allergies: No Known Allergies (Unverified , 03/07/18) ROS Limited/Unobtainable: No Constitutional: Reports: no symptoms HEENT: Reports: no symptoms Cardiovascular: Reports: no symptoms Respiratory: Reports: no symptoms Gastrointestinal/Abdominal: Reports: abdominal pain Genitourinary: Reports: no symptoms Neurologic/Psychiatric: Reports: no symptoms Subjective 77 YO F admitted with left low quad abdominal pain and constipation. Now new RUQ mass. Cover for Int Med-Dr Roblero. Await esophageal ultrasound and fine needle aspiration Objective Last Vital Signs Date Time Temp Pulse Resp B/P (MAP) Pulse Ox O2 Delivery O2 Flow Rate FiO2 03/10/18 11:45 97.4 82 17 121/74 (90) 97 03/10/18 09:00 Room Air Laboratory Tests Test 03/10/18 05:45 White Blood Count 8.0 K/UL (4.8-10.8) Red Blood Count 2.87 M/UL (4.20-5.40) L Hemoglobin 7.5 G/DL (12.0-16.0) L Hematocrit 23.8 % (37.0-47.0) L Mean Corpuscular Volume 83 FL (80-99) Mean Corpuscular Hemoglobin 26.2 PG (27.0-31.0) L Mean Corpuscular Hemoglobin Concent 31.5 G/DL (32.0-36.0) L Red Cell Distribution Width 14.5 % (11.6-14.8) Platelet Count 347 K/UL (150-450) Mean Platelet Volume 6.7 FL (6.5-10.1) Neutrophils (%) (Auto) % (45.0-75.0) Lymphocytes (%) (Auto) % (20.0-45.0) Monocytes (%) (Auto) % (1.0-10.0) Eosinophils (%) (Auto) % (0.0-3.0) Basophils (%) (Auto) % (0.0-2.0) Differential Total Cells Counted 100 Neutrophils % (Manual) 70 % (45-75) Lymphocytes % (Manual) 13 % (20-45) L Monocytes % (Manual) 16 % (1-10) H Eosinophils % (Manual) 1 % (0-3) Basophils % (Manual) 0 % (0-2) Band Neutrophils 0 % (0-8) Platelet Estimate Adequate Platelet Morphology Normal Hypochromasia 1+ Anisocytosis 1+ Sodium Level 139 MMOL/L (136-145) Potassium Level 3.7 MMOL/L (3.5-5.1) Chloride Level 107 MMOL/L (98-107) Carbon Dioxide Level 24 MMOL/L (21-32) Anion Gap 8 mmol/L (5-15) Blood Urea Nitrogen 12 mg/dL (7-18) Creatinine 1.0 MG/DL (0.55-1.30) Estimat Glomerular Filtration Rate mL/min (>60) Glucose Level 122 MG/DL (74-106) H Calcium Level 9.5 MG/DL (8.5-10.1) Intake and Output 03/09/18 03/10/18 19:00 07:00 Intake Total 1260 ml 1311 ml Balance 1260 ml 1311 ml Intake Oral 420 ml 400 ml IV Total 840 ml 911 ml # Voids 1 3 # Bowel Movements 1 Objective Objective General: No acute distress, awake and alert HEENT: NCAT, sclera anicteric, PERRL, EOMI. Neck: Supple, no significant jugular venous distention, Lungs: Good inspiratory effort,, no Wheeze or Rales. Heart: Regular rate and rhythm, normal S1/S2, no murmurs Abdomen: soft, Left side tenderness, nondistended. Normoactive bowel sounds. Extremities: No Cyanosis , clubbing or edema. Neuro: A&O x 3, Able to move all extremities Skin: warm, no rashes or lesions Psych: Normal mood and affect Assessment/Plan Problem List: (1) HTN (hypertension) Assessment & Plan: Continue spironolactone (2) Hypercholesterolemia (3) Constipation (4) Intractable abdominal pain (5) gall bladder fossa mass Assessment & Plan: Await EUS with FNA and onc consult. (6) Anemia Status: not improved Hernandez Bonilla MD Mar 10, 2018 14:56
--- NOTE | 2018-03-10 14:59 | General Progress Note ---
Assessment/Plan Status: unchanged Assessment/Plan # Abdominal mass very concerning for malignancy. Newly diagnosed abdominal RUQ tumor. Etiology unknown. GB vs gastric vs colon --> CT: Large heterogeneous enhancing mass in the jori hepatis contiguous with the gallbladder fossa measuring 7 x 5.6 x 6 cm suspicious for malignant tumor. This is probably of gallbladder origin. Would consider gastric or duodenal origin. Would consider infection although much less likely based on the appearance. Correlate clinically. --> US, CT, MRI have all been reviewed --> tumor markers - pending specifically AFP --> pending ultrasound with EUS biopsy --> further recs after us guided biopsy is completed # Anemia of chronic disease due to underlying chronic medical issues, multifactorial. --> Anemia w/u has been reviewed. Ferritin at 290 --> No evidence of hemolysis noted, peripheral smear has been reviewed. --> Hgb gosl >7, transfuse as needed --> Blood tx: 03/10, # Leukocytosis. Likely related to underlying infection versus reactive process. --> Imaging has been reviewed. CXR shows no acute disease --> Blood cultures and urine cultures are pending. --> Currently not on abx # Constipation. # Weakness. Greatly appreciate consultation. Subjective Date patient seen: Mar 10, 2018 Hematologic/Lymphatic: Reports: anemia Allergies: Coded Allergies: No Known Allergies (Unverified , 03/07/18) All Systems: reviewed and negative except above Subjective Hgb at 7.5, blood tx ordered. Objective Last 24 Hour Vital Signs Date Time Temp Pulse Resp B/P (MAP) Pulse Ox O2 Delivery O2 Flow Rate FiO2 03/10/18 11:45 97.4 82 17 121/74 (90) 97 03/10/18 09:00 Room Air 03/10/18 08:01 91 03/10/18 08:00 98.6 86 17 114/68 (83) 96 03/10/18 04:00 84 03/10/18 00:00 97.3 72 19 131/68 (89) 94 03/10/18 00:00 81 03/09/18 21:00 Room Air 03/09/18 20:00 88 03/09/18 20:00 98.8 89 18 112/43 (66) 95 03/09/18 16:09 98.1 03/09/18 16:00 108 03/09/18 16:00 100.4 99 18 134/76 (95) 95 Intake and Output 03/09/18 03/10/18 19:00 07:00 Intake Total 1260 ml 1311 ml Balance 1260 ml 1311 ml Intake Oral 420 ml 400 ml IV Total 840 ml 911 ml # Voids 1 3 # Bowel Movements 1 Laboratory Tests 03/10/18 05:45: White Blood Count 8.0, Red Blood Count 2.87L, Hemoglobin 7.5L, Hematocrit 23.8L , Mean Corpuscular Volume 83, Mean Corpuscular Hemoglobin 26.2L, Mean Corpuscular Hemoglobin Concent 31.5L, Red Cell Distribution Width 14.5, Platelet Count 347, Mean Platelet Volume 6.7, Neutrophils (%) (Auto) , Lymphocytes (%) (Auto) , Monocytes (%) (Auto) , Eosinophils (%) (Auto) , Basophils (%) (Auto) , Differential Total Cells Counted 100, Neutrophils % ( Manual) 70, Lymphocytes % (Manual) 13L, Monocytes % (Manual) 16H, Eosinophils % (Manual) 1, Basophils % (Manual) 0, Band Neutrophils 0, Platelet Estimate Adequate, Platelet Morphology Normal, Hypochromasia 1+, Anisocytosis 1+, Sodium Level 139, Potassium Level 3.7, Chloride Level 107, Carbon Dioxide Level 24, Anion Gap 8, Blood Urea Nitrogen 12, Creatinine 1.0, Estimat Glomerular Filtration Rate , Glucose Level 122H, Calcium Level 9.5 Height (Feet): 5 Height (Inches): 7.00 Weight (Pounds): 170 General Appearance: no apparent distress Objective Vitals: Reviewed. General Appearance: no apparent distress, alert Lines, tubes and drains: peripheral HEENT: normocephalic, mucous membranes moist Neck: normal inspection Respiratory/Chest: normal breath sounds, no respiratory distress, no accessory muscle use Cardiovascular/Chest: normal rate, regular rhythm Abdomen: normal bowel sounds, non tender, soft, no organomegaly, no mass, other - prior lower midline scar well healed Extremities: normal inspection Skin Exam: warm/dry Neurologic: alert, responsive Abner Silva MD Mar 10, 2018 14:59
[2018-03-10 16:00] VITALS: BP 132/81
--- NOTE | 2018-03-10 18:05 | General Surgery Progress Note ---
General Surgery-Progress Note Subjective Additional Comments no acute events. discussed with GI and plan for EUS w/ biopsy Objective Last 24 Hour Vital Signs Date Time Temp Pulse Resp B/P (MAP) Pulse Ox O2 Delivery O2 Flow Rate FiO2 03/10/18 16:00 98.0 90 18 132/81 (98) 99 03/10/18 11:53 94 03/10/18 11:45 97.4 82 17 121/74 (90) 97 03/10/18 09:00 Room Air 03/10/18 08:01 91 03/10/18 08:00 98.6 86 17 114/68 (83) 96 03/10/18 04:00 84 03/10/18 00:00 97.3 72 19 131/68 (89) 94 03/10/18 00:00 81 03/09/18 21:00 Room Air 03/09/18 20:00 88 03/09/18 20:00 98.8 89 18 112/43 (66) 95 I&O Intake and Output 03/09/18 03/10/18 19:00 07:00 Intake Total 1260 ml 1311 ml Balance 1260 ml 1311 ml Intake Oral 420 ml 400 ml IV Total 840 ml 911 ml # Voids 1 3 # Bowel Movements 1 Drains: none Cardiovascular: RSR Respiratory: clear Abdomen: soft, flat, non-tender, present bowel sounds Extremities: no cyanosis Laboratory Tests Test 03/10/18 05:45 White Blood Count 8.0 K/UL (4.8-10.8) Red Blood Count 2.87 M/UL (4.20-5.40) L Hemoglobin 7.5 G/DL (12.0-16.0) L Hematocrit 23.8 % (37.0-47.0) L Mean Corpuscular Volume 83 FL (80-99) Mean Corpuscular Hemoglobin 26.2 PG (27.0-31.0) L Mean Corpuscular Hemoglobin Concent 31.5 G/DL (32.0-36.0) L Red Cell Distribution Width 14.5 % (11.6-14.8) Platelet Count 347 K/UL (150-450) Mean Platelet Volume 6.7 FL (6.5-10.1) Neutrophils (%) (Auto) % (45.0-75.0) Lymphocytes (%) (Auto) % (20.0-45.0) Monocytes (%) (Auto) % (1.0-10.0) Eosinophils (%) (Auto) % (0.0-3.0) Basophils (%) (Auto) % (0.0-2.0) Differential Total Cells Counted 100 Neutrophils % (Manual) 70 % (45-75) Lymphocytes % (Manual) 13 % (20-45) L Monocytes % (Manual) 16 % (1-10) H Eosinophils % (Manual) 1 % (0-3) Basophils % (Manual) 0 % (0-2) Band Neutrophils 0 % (0-8) Platelet Estimate Adequate Platelet Morphology Normal Hypochromasia 1+ Anisocytosis 1+ Sodium Level 139 MMOL/L (136-145) Potassium Level 3.7 MMOL/L (3.5-5.1) Chloride Level 107 MMOL/L (98-107) Carbon Dioxide Level 24 MMOL/L (21-32) Anion Gap 8 mmol/L (5-15) Blood Urea Nitrogen 12 mg/dL (7-18) Creatinine 1.0 MG/DL (0.55-1.30) Estimat Glomerular Filtration Rate mL/min (>60) Glucose Level 122 MG/DL (74-106) H Calcium Level 9.5 MG/DL (8.5-10.1) Plan Problems: (1) Neoplasm of abdomen Assessment & Plan: 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 GB vs gastric vs colon? CT reviewed MRI reviewed tumor markers discussed with GI about EUS biopsy vs CT guided biopsy. plan for EUS biopsy will follow with recs. thank you. Klever Thurman Mar 10, 2018 18:05
[2018-03-10 20:00] VITALS: BP 109/71
[2018-03-10] MEDS: Iron Sucrose 100 MG in NS 55 ML IV SCH (21:00)
[2018-03-11] VITALS (8 sets, daily range): BP systolic 103–126; BP diastolic 61–76
[2018-03-11] MEDS: D5NS 1,000 ML IV SCH ×2 (01:46→16:31)
--- NOTE | 2018-03-11 06:23 | General Progress Note ---
Assessment/Plan Assessment/Plan # Abdominal mass very concerning for malignancy. Newly diagnosed abdominal RUQ tumor. Etiology unknown. GB vs gastric vs colon --> CT: Large heterogeneous enhancing mass in the jori hepatis contiguous with the gallbladder fossa measuring 7 x 5.6 x 6 cm suspicious for malignant tumor. This is probably of gallbladder origin. Would consider gastric or duodenal origin. Would consider infection although much less likely based on the appearance. Correlate clinically. --> US, CT, MRI have all been reviewed --> tumor markers - pending specifically AFP. CEA of 0.7 --> pending further eval EUS biopsy as per gi --> further recs after pathology report is available # Anemia of chronic disease due to underlying chronic medical issues, multifactorial. --> Anemia w/u has been reviewed. Ferritin at 290 --> No evidence of hemolysis noted, peripheral smear has been reviewed. --> Hgb goal >7, transfuse as needed --> Blood tx: 03/10 # Leukocytosis. Likely related to underlying infection versus reactive process. --> Imaging has been reviewed. CXR shows no acute disease --> Blood cultures and urine cultures are pending. --> Currently not on abx # Constipation. # Weakness. Greatly appreciate consultation. Subjective Allergies: Coded Allergies: No Known Allergies (Unverified , 03/07/18) Subjective Hgb at 7.5, s/p blood transfusion, plan for eus with bx Objective Last 24 Hour Vital Signs Date Time Temp Pulse Resp B/P (MAP) Pulse Ox O2 Delivery O2 Flow Rate FiO2 03/11/18 04:56 98.9 03/11/18 04:00 77 03/11/18 04:00 98.9 80 20 120/75 (90) 95 03/11/18 00:00 88 03/11/18 00:00 98.4 83 20 117/72 (87) 97 03/10/18 21:00 Room Air 03/10/18 20:00 98.0 93 20 109/71 (84) 100 03/10/18 20:00 90 03/10/18 16:00 98.0 90 18 132/81 (98) 99 03/10/18 15:59 88 03/10/18 11:53 94 03/10/18 11:45 97.4 82 17 121/74 (90) 97 03/10/18 09:00 Room Air 03/10/18 08:01 91 03/10/18 08:00 98.6 86 17 114/68 (83) 96 Intake and Output 03/10/18 03/11/18 18:59 06:59 Intake Total 575 ml 243 ml Balance 575 ml 243 ml IV Total 75 ml 243 ml Other 500 ml # Voids 1 2 Height (Feet): 5 Height (Inches): 6.00 Weight (Pounds): 168 General Appearance: no apparent distress Objective Vitals: Reviewed. General Appearance: no apparent distress, sleeping Lines, tubes and drains: peripheral HEENT: normocephalic, mucous membranes moist Neck: normal inspection Respiratory/Chest: normal breath sounds, no respiratory distress, no accessory muscle use Cardiovascular/Chest: normal rate, regular rhythm Abdomen: normal bowel sounds, non tender, soft, no organomegaly, no mass, other - prior lower midline scar well healed Extremities: normal inspection Skin Exam: warm/dry Neurologic: alert, responsive Abner Silva MD Mar 11, 2018 06:23
[2018-03-11] MEDS ORDERED: Lidocaine 1% MPF 10mg/ml 5ml ONE (07:30)
[2018-03-11] MEDS ORDERED: LR 1000ml ONE (07:30)
[2018-03-11] MEDS ORDERED: Propofol 200mg/20ml IV ONE (07:30)
[2018-03-11] MEDS ORDERED: NS 500ML IVPB ONE (07:35)
--- NOTE | 2018-03-11 07:40 | Pre-Procedure Note/Attestation ---
Pre-Procedure Note/Attestation Complete Prior to Procedure Planned Procedure: not applicable Procedure Narrative: egd/eus Indications for Procedure Pre-Operative Diagnosis: mass Attestation I attest that I discussed the nature of the procedure; its benefits; risks and complications; and alternatives (and the risks and benefits of such alternatives ), prior to the procedure, with the patient (or the patient's legal payable representative). I attest that, if there was a reasonable possibility of needing a blood transfusion, the patient (or the patient's legal payable representative) was given the [facility] standardized written summary, pursuant to the Ryan Cindy Blood Safety Act ([place] Health and Safety Code # 1645, as amended). I attest that I re-evaluated the patient just prior to the surgery and that there has been no change in the patient's H&P, except as documented below: Mando Deleon MD Mar 11, 2018 07:40
[2018-03-11] MEDS ORDERED: LR 1000ml 1,000 ML IVLG SCH (07:46)
--- NOTE | 2018-03-11 07:51 | Anethesia Preoperative Eval ---
Anesthesia Pre-op PMH/ROS General Date of Evaluation: Mar 11, 2018 Time of Evaluation: 07:21 Anesthesiologist: Linda ASA Score: ASA 4 Mallampati Score Class I : Soft palate, uvula, fauces, pillars visible Class II: Soft palate, uvula, fauces visible Class III: Soft palate, base of uvula visible Class IV: Only hard plate visible Mallampati Classification: Class III Surgeon: Adrienne Diagnosis: Abd Pain Surgical Procedure: EUS/EUD Anesthesia History: none Family History: no anesthesia problems Allergies: Coded Allergies: No Known Allergies (Unverified , 03/07/18) Medications: see eMAR Patient NPO?: Yes Past Medical History Cardiovascular: Reports: HTN, other - HL Gastrointestinal/Genitourinary: 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 Exam Physician Exam Last Vital Signs Date Time Temp Pulse Resp B/P (MAP) Pulse Ox O2 Delivery O2 Flow Rate FiO2 03/11/18 04:56 98.9 03/11/18 04:00 77 03/11/18 04:00 20 120/75 (90) 95 03/10/18 21:00 Room Air Constitutional: NAD Neurologic: CN 2-12 intact Cardiovascular: RRR Respiratory: CTA Gastrointestinal: S/NT/ND Airway Exam Mallampati Score: Class III MO: limited ROM: limited Teeth: missing, intact Anesthesia Pre-op A/P Risk Assessment & Plan Assessment: ASA 4 Plan: GA Status Change Before Surgery: Prasanna Sams MD Mar 11, 2018 07:51
--- NOTE | 2018-03-11 07:52 | Immediate Post-Op Evaluation ---
Immediate Post-Op Evalulation Immediate Post-Op Evalulation Procedure: EUS/EGD Date of Evaluation: Mar 11, 2018 Time of Evaluation: 08:19 IV Fluids: 200 Blood Products: 0 Estimated Blood Loss: 4 Urinary Output: 0 Blood Pressure Systolic: 111 Blood Pressure Diastolic: 67 Pulse Rate: 66 Respiratory Rate: 16 O2 Sat by Pulse Oximetry: 100 Temperature (Fahrenheit): 97.5 Pain Score (1-10): 2 Nausea: No Vomiting: No Complications 0 Patient Status: awake, reacts, patent, none Hydration Status: adequate Prasanna Mckeon MD Mar 11, 2018 07:52
--- NOTE | 2018-03-11 07:52 | 48 Hour Post Anesthesia Eval ---
Post Anesthesia Evaluation Procedure: EUS/EGD Date of Evaluation: Mar 11, 2018 Time of Evaluation: 11:31 Blood Pressure Systolic: 121 0: 73 Pulse Rate: 67 Respiratory Rate: 18 Temperature (Fahrenheit): 97.8 O2 Sat by Pulse Oximetry: 99 Airway: patent Nausea: No Vomiting: No Pain Intensity: 2 Hydration Status: adequate Cardiopulmonary Status: Stable Mental Status/LOC: patient returned to baseline Follow-up Care/Observations: 0 Post-Anesthesia Complications: 0 Follow-up care needed: N/A Prasanna Mckeon MD Mar 11, 2018 07:52
--- NOTE | 2018-03-11 07:57 | Endoscopy Procedure Note ---
Endoscopy Procedure Note General Indication for Procedure: abd mass Procedures Performed: EGD Operative Findings/Diagnosis: large Dudenal mass Specimen: yes Pt Tolerated Procedure Well: Yes Estimated Blood Loss: none Anesthesia Anesthesiologist: ata Anesthesia: MAC Inserted Devices Implant(s) used?: No GI Core Measures 50 yrs or older w/o bx or poly: Not Applicable 10yrs. F/U not recommended: Not Applicable Mando Deleon MD Mar 11, 2018 07:57
[2018-03-11] MEDS ORDERED: fentaNYL 100 mcg/2 mL IV PRN (08:00)
[2018-03-11] MEDS ORDERED: oxyCODONE HCL/Acetaminophen 5/325mg ORAL PRN (08:00)
[2018-03-11] MEDS ORDERED: Hydromorphone 0.5mg/0.5ml inj IVP PRN (08:00)
[2018-03-11] MEDS ORDERED: HYDROcodone/Acetamin 7.5/325 tab ORAL PRN (08:00)
[2018-03-11] MEDS ORDERED: Midazolam 2mg/2ml Inj IVP PRN (08:00)
[2018-03-11] MEDS ORDERED: Atropine Sulfate 0.4mg/ml inj IVP PRN (08:00)
[2018-03-11] MEDS ORDERED: Norco 5mg/325mg tab ORAL PRN (08:00)
[2018-03-11] MEDS ORDERED: LORazepam Inj 2mg/ml 1ml IV PRN ×2 (08:00→16:09)
[2018-03-11] MEDS ORDERED: DiphenhydrAMINE 50mg/ml Inj IVP PRN (08:00)
[2018-03-11] MEDS: Pantoprazole Inj IV SCH (09:00)
[2018-03-11] MEDS: Docusate 100mg cap ORAL SCH ×3 (09:00→17:20)
[2018-03-11] MEDS: Cyproheptadine HCl 4mg tab ORAL SCH ×4 (09:00→17:27)
[2018-03-11] MEDS: Spironolactone 50mg tab ORAL SCH (09:00)
[2018-03-11] MEDS: Heparin 5000 units/ml inj SUBQ SCH ×2 (09:00→20:24)
--- NOTE | 2018-03-11 09:16 | Procedure Note ---
DATE OF PROCEDURE: 03/11/2018 SURGEON: Mando Deleon M.D. ANESTHESIOLOGIST: Prasanna Mckeon M.D. PROCEDURE: Upper endoscopy with biopsy. INSTRUMENT: Olympus adult flexible upper endoscope. INDICATION: Evaluation for abdominal mass. The procedure, risks, benefits, and possible consequences, including hemorrhage, aspiration, perforation and infection, and alternative treatments, were explained to the patient/legal guardian by Dr. Mando Deleon and the patient/legal guardian understood and accepted these risks. DESCRIPTION OF PROCEDURE: After informed consent was obtained and the patient was adequately sedated, Olympus upper endoscope was advanced from the mouth into the duodenal bulb. We could not advance the scope beyond the duodenal bulb given there was a large mass in the duodenum. Multiple biopsies from this large mass in the duodenum was obtained for diagnosis. This was a very friable tissue, highly consistent for malignancy. We were not able to pass the scope beyond this mass. The patient also have severe peeling off of the mucosa in the esophagus all the way up to the upper esophagus either from reflux or possibly from the autoimmune diseases. The patient tolerated the procedure very well without any complication. SUMMARY OF FINDINGS: 1. Large duodenal mass. See above for details. Status post multiple biopsies. 2. Peeling off of the mucosa lining suspicious for esophagitis. RECOMMENDATIONS: 1. Follow up biopsy results. 2. Discussed with surgery regarding the plans and surgery and Oncology when biopsies are available. 3. Reflux measures. 4. Clear liquid diet. 5. PPI. I want to thank, Dr. Octavio Roblero, for this kind referral. Mando Deleon M.D. DR: BEA JOB#: [id number] CC: Octavio Roblero M.D.; Fax#: [phone]
[2018-03-11 09:49] LABS: BASOPHILS % (AUTO) 0.6 % (0.0-2.0); EOSINOPHILS % (AUTO) 1.5 % (0.0-3.0); HEMOGLOBIN 8.8 G/DL (12.0-16.0); LYMPHOCYTES % (AUTO) 21.6 % (20.0-45.0); MEAN CORPUSCULAR VOLUME 85 FL (80-99); MONOCYTES % (AUTO) 13.3 % (1.0-10.0); NEUTROPHILS % (AUTO) 63.1 % (45.0-75.0); PLATELET COUNT 347 K/UL (150-450); RED BLOOD COUNT 3.29 M/UL (4.20-5.40); RED CELL DISTRIBUTION WIDTH 14.5 % (11.6-14.8); WHITE BLOOD COUNT 11.2 K/UL (4.8-10.8)
[2018-03-11 10:03] LABS: ANION GAP 8 mmol/L (5-15); BLOOD UREA NITROGEN 8 mg/dL (7-18); CALCIUM 9.8 MG/DL (8.5-10.1); CARBON DIOXIDE 25 MMOL/L (21-32); CHLORIDE 109 MMOL/L (98-107); POTASSIUM 3.9 MMOL/L (3.5-5.1); SODIUM 142 MMOL/L (136-145)
--- NOTE | 2018-03-11 11:11 | Consultation ---
History of Present Illness General Date patient seen: Mar 10, 2018 Chief Complaint: Generalized Weakness Referring physician: REY HOLT Reason for Consultation: abdominal mass Present Illness HPI 77-year-old female, was bi with a chief complaint of left lower quadrant pain.The patient has a history of hypertension and hypercholesterolemia. The patient has had subjective fevers and chills for the last two weeks. The patient also noticed weakness and dizziness. the pt has hx of depression and anxiety. the pt has low energy and anhedonia Allergies: Coded Allergies: No Known Allergies (Unverified , 03/07/18) Medication History Scheduled Atorvastatin Calcium* (Atorvastatin Calcium*), 10 MG ORAL BEDTIME, (Reported) Fluoxetine Hcl* (Fluoxetine Hcl*), 40 MG ORAL DAILY, (Reported) Spironolactone* (Spironolactone*), 50 MG ORAL DAILY, (Reported) Patient History History Provided By: Patient, Medical Record Healthcare decision maker Kavin Resuscitation status Full Code Advanced Directive on File Past Medical/Surgical History Past Medical/Surgical History: (1) Obstipation (2) Fever (3) Neoplasm of abdomen (4) Constipation (5) Anemia (6) Weakness (7) Intractable abdominal pain (8) gall bladder fossa mass (9) Hypercholesterolemia (10) HTN (hypertension) (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 Review of Systems Psychiatric: Reports: prior hx, anxiety, depressed feelings, emotional problems Physical Exam General Appearance: no apparent distress, alert Neurologic: oriented x 3, responsive, depressed affect Last 24 Hour Vital Signs Date Time Temp Pulse Resp B/P (MAP) Pulse Ox O2 Delivery O2 Flow Rate FiO2 03/11/18 09:00 Room Air 03/11/18 08:25 97.8 66 16 103/64 99 Nasal Cannula 3 03/11/18 08:17 66 13 105/61 99 Nasal Cannula 3 03/11/18 08:12 67 14 106/66 99 Nasal Cannula 3 03/11/18 08:12 67 18 99 03/11/18 08:11 66 16 100 03/11/18 08:07 97.5 69 24 111/67 98 Nasal Cannula 3 03/11/18 04:56 98.9 03/11/18 04:00 77 03/11/18 04:00 98.9 80 20 120/75 (90) 95 03/11/18 00:00 88 03/11/18 00:00 98.4 83 20 117/72 (87) 97 03/10/18 21:00 Room Air 03/10/18 20:00 98.0 93 20 109/71 (84) 100 03/10/18 20:00 90 03/10/18 16:00 98.0 90 18 132/81 (98) 99 03/10/18 15:59 88 03/10/18 11:53 94 03/10/18 11:45 97.4 82 17 121/74 (90) 97 Intake and Output 03/10/18 03/11/18 18:59 06:59 Intake Total 575 ml 318 ml Balance 575 ml 318 ml IV Total 75 ml 318 ml Other 500 ml # Voids 1 2 Laboratory Tests Test 03/11/18 09:30 White Blood Count 11.2 K/UL (4.8-10.8) H Red Blood Count 3.29 M/UL (4.20-5.40) L Hemoglobin 8.8 G/DL (12.0-16.0) L Hematocrit 28.0 % (37.0-47.0) L Mean Corpuscular Volume 85 FL (80-99) Mean Corpuscular Hemoglobin 26.8 PG (27.0-31.0) L Mean Corpuscular Hemoglobin Concent 31.4 G/DL (32.0-36.0) L Red Cell Distribution Width 14.5 % (11.6-14.8) Platelet Count 347 K/UL (150-450) Mean Platelet Volume 6.4 FL (6.5-10.1) L Neutrophils (%) (Auto) 63.1 % (45.0-75.0) Lymphocytes (%) (Auto) 21.6 % (20.0-45.0) Monocytes (%) (Auto) 13.3 % (1.0-10.0) H Eosinophils (%) (Auto) 1.5 % (0.0-3.0) Basophils (%) (Auto) 0.6 % (0.0-2.0) Sodium Level 142 MMOL/L (136-145) Potassium Level 3.9 MMOL/L (3.5-5.1) Chloride Level 109 MMOL/L (98-107) H Carbon Dioxide Level 25 MMOL/L (21-32) Anion Gap 8 mmol/L (5-15) Blood Urea Nitrogen 8 mg/dL (7-18) Creatinine 1.0 MG/DL (0.55-1.30) Estimat Glomerular Filtration Rate mL/min (>60) Glucose Level 99 MG/DL (74-106) Calcium Level 9.8 MG/DL (8.5-10.1) Height (Feet): 5 Height (Inches): 6.00 Weight (Pounds): 168 Medications Current Medications Medications (Trade) Dose Ordered Sig/Sebastien Route PRN Reason Start Time Stop Time Status Last Admin Dose Admin Acetaminophen (Tylenol) 650 mg Q4H PRN ORAL fever (temp>100.5F) 03/07/18 19:00 04/06/18 18:59 03/11/18 04:26 Acetaminophen/ Hydrocodone Bitart ([place] 5/325) 1 tab Q1H PRN ORAL Mild Pain (Pain Scale 1-3) 03/11/18 08:00 03/11/18 14:00 Acetaminophen/ Hydrocodone Bitart ([place] 7.5/325) 1 tab Q1H PRN ORAL Moderate Pain (Pain Scale 4-6) 03/11/18 08:00 03/11/18 14:00 Al Hydroxide/Mg Hydroxide (Mylanta II) 30 ml Q6H PRN ORAL dyspepsia 03/07/18 19:00 04/06/18 18:59 Al Hydroxide/Mg Hydroxide (Mylanta) 15 ml Q1H PRN ORAL gi upset 03/11/18 08:00 03/11/18 14:00 Atorvastatin Calcium (Lipitor) 10 mg BEDTIME ORAL 03/07/18 23:15 04/06/18 23:14 03/10/18 21:05 Atropine Sulfate (Atropine 0.4mg/ ml) 0.5 mg Q5M PRN IVP HR<40 03/11/18 08:00 03/11/18 14:00 Cyproheptadine HCl (Periactin) 4 mg THREE TIMES A DAY ORAL 03/09/18 13:00 04/08/18 12:59 03/10/18 18:32 Dextrose (Dextrose 50%) 25 ml Q30M PRN IV Hypoglycemia 03/07/18 19:00 04/06/18 18:59 Dextrose (Dextrose 50%) 50 ml Q30M PRN IV Hypoglycemia 03/07/18 19:00 128/18 18:59 Dextrose/Sodium Chloride 1,000 ml @ 75 mls/hr [id number] IV 03/09/18 09:45 04/08/18 09:44 03/11/18 01:46 Diphenhydramine HCl (Benadryl) 25 mg Q15M PRN IVP Itching 03/11/18 08:00 03/11/18 14:00 Diphenhydramine HCl (Benadryl) 25 mg Q6H PRN ORAL Itching/Pruritis 03/07/18 19:00 04/06/18 18:59 Docusate Sodium (Colace) 100 mg THREE TIMES A DAY ORAL 03/08/18 13:00 04/07/18 12:59 03/10/18 18:32 Fentanyl Citrate (Sublimaze 100 mcg/2 mL) 25 mcg Q10M PRN IV Moderate Pain (Pain Scale 4-6) 03/11/18 08:00 03/11/18 14:00 Fluoxetine HCl (PROzac) 60 mg DAILY ORAL 03/09/18 09:00 04/08/18 08:59 03/10/18 08:59 Heparin Sodium (Porcine) (Heparin 5000 units/ml) 5,000 units EVERY 12 HOURS SUBQ 03/07/18 21:00 04/06/18 20:59 03/10/18 21:06 Hydralazine HCl (Apresoline) 5 mg Q30M PRN IV SBP>160 / DBP>90 03/11/18 08:00 03/11/18 14:00 Hydromorphone HCl (Dilaudid) 0.5 mg Q15M PRN IVP Severe Pain (Pain Scale 7-10) 03/11/18 08:00 03/11/18 14:00 Lorazepam (Ativan 2mg/ml 1ml) 1 mg Q15M PRN IV For Anxiety 03/11/18 08:00 03/11/18 14:00 Lorazepam (Ativan 2mg/ml 1ml) 1 mg Q4H PRN IV agitation 03/07/18 19:00 03/14/18 18:59 Metoclopramide HCl (Reglan) 10 mg Q6H PRN IVP severe nausea 03/07/18 19:00 04/06/18 18:59 Midazolam HCl (Versed 2mg/2ml vial) 1 mg Q15M PRN IVP For Anxiety 03/11/18 08:00 03/11/18 14:00 Morphine Sulfate (Morphine Sulfate) 2 mg Q4H PRN IVP severe Pain (Pain Scale 7-10) 03/07/18 19:00 03/14/18 18:59 Nitroglycerin (Ntg) 0.4 mg Q5M X 3 DOSES PRN SL Prn Chest Pain 03/07/18 19:00 04/06/18 18:59 Ondansetron HCl (Zofran) 4 mg Q1H PRN IVP Nausea & Vomiting 03/11/18 08:00 03/11/18 14:00 Ondansetron HCl (Zofran) 4 mg Q6H PRN IVP Nausea & Vomiting 03/07/18 19:00 04/06/18 18:59 Oxycodone/ Acetaminophen (Percocet 5-325) 1 tab Q1H PRN ORAL Severe Pain (Pain Scale 7-10) 03/11/18 08:00 03/11/18 14:00 Pantoprazole (Protonix) 40 mg DAILY IV 03/08/18 09:00 04/07/18 08:59 03/10/18 08:59 Polyethylene Glycol (Miralax) 17 gm HSPRN PRN ORAL Constipation 03/07/18 19:00 04/06/18 18:59 Promethazine HCl (Phenergan) 25 mg Q6H PRN IM Refractory N/V 03/07/18 19:45 04/06/18 19:44 Spironolactone (Aldactone) 50 mg DAILY ORAL 03/08/18 09:00 04/07/18 08:59 03/10/18 08:59 Temazepam (Restoril) 15 mg HSPRN PRN ORAL Insomnia 03/07/18 19:00 03/14/18 18:59 Assessment/Plan Problem List: (1) Major depression, recurrent ICD Codes: F33.9 - Major depressive disorder, recurrent, unspecified SNOMED: 93108338 Assessment/Plan prozac 60mg qam midazolam prn provided christiano/Caio Morley MD Mar 11, 2018 11:11
--- NOTE | 2018-03-11 11:14 | General Surgery Progress Note ---
General Surgery-Progress Note Subjective Additional Comments EGD identified large mass infiltrating duodenum. biopsy taken. otherwise patient without complaints. Objective Last 24 Hour Vital Signs Date Time Temp Pulse Resp B/P (MAP) Pulse Ox O2 Delivery O2 Flow Rate FiO2 03/11/18 09:00 Room Air 03/11/18 08:25 97.8 66 16 103/64 99 Nasal Cannula 3 03/11/18 08:17 66 13 105/61 99 Nasal Cannula 3 03/11/18 08:12 67 14 106/66 99 Nasal Cannula 3 03/11/18 08:12 67 18 99 03/11/18 08:11 66 16 100 03/11/18 08:07 97.5 69 24 111/67 98 Nasal Cannula 3 03/11/18 04:56 98.9 03/11/18 04:00 77 03/11/18 04:00 98.9 80 20 120/75 (90) 95 03/11/18 00:00 88 03/11/18 00:00 98.4 83 20 117/72 (87) 97 03/10/18 21:00 Room Air 03/10/18 20:00 98.0 93 20 109/71 (84) 100 03/10/18 20:00 90 03/10/18 16:00 98.0 90 18 132/81 (98) 99 03/10/18 15:59 88 03/10/18 11:53 94 03/10/18 11:45 97.4 82 17 121/74 (90) 97 I&O Intake and Output 03/10/18 03/11/18 18:59 06:59 Intake Total 575 ml 318 ml Balance 575 ml 318 ml IV Total 75 ml 318 ml Other 500 ml # Voids 1 2 Drains: none Cardiovascular: RSR Respiratory: clear Abdomen: soft, non-tender, present bowel sounds Extremities: no cyanosis Laboratory Tests Test 03/11/18 09:30 White Blood Count 11.2 K/UL (4.8-10.8) H Red Blood Count 3.29 M/UL (4.20-5.40) L Hemoglobin 8.8 G/DL (12.0-16.0) L Hematocrit 28.0 % (37.0-47.0) L Mean Corpuscular Volume 85 FL (80-99) Mean Corpuscular Hemoglobin 26.8 PG (27.0-31.0) L Mean Corpuscular Hemoglobin Concent 31.4 G/DL (32.0-36.0) L Red Cell Distribution Width 14.5 % (11.6-14.8) Platelet Count 347 K/UL (150-450) Mean Platelet Volume 6.4 FL (6.5-10.1) L Neutrophils (%) (Auto) 63.1 % (45.0-75.0) Lymphocytes (%) (Auto) 21.6 % (20.0-45.0) Monocytes (%) (Auto) 13.3 % (1.0-10.0) H Eosinophils (%) (Auto) 1.5 % (0.0-3.0) Basophils (%) (Auto) 0.6 % (0.0-2.0) Sodium Level 142 MMOL/L (136-145) Potassium Level 3.9 MMOL/L (3.5-5.1) Chloride Level 109 MMOL/L (98-107) H Carbon Dioxide Level 25 MMOL/L (21-32) Anion Gap 8 mmol/L (5-15) Blood Urea Nitrogen 8 mg/dL (7-18) Creatinine 1.0 MG/DL (0.55-1.30) Estimat Glomerular Filtration Rate mL/min (>60) Glucose Level 99 MG/DL (74-106) Calcium Level 9.8 MG/DL (8.5-10.1) Plan Problems: (1) Neoplasm of abdomen Assessment & Plan: 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 GB vs gastric vs colon? CT reviewed MRI reviewed EGD with infiltrating duodenal mass. biopsy taken await pathology results okay for diet from surgical standpoint given no obstructive symptoms as for mass; if needs resection will need higher level of care. location of mass very concerning. await path will follow with recs. thank you. Klever Thurman Mar 11, 2018 11:14
--- NOTE | 2018-03-11 13:13 | Pulmonology Progress Note ---
Assessment/Plan Problems: (1) Intractable abdominal pain (2) Neoplasm of abdomen (3) Anemia Assessment/Plan had EUS and EGD tumor markers are still pending anemia w/u in process all notes reviewed tumor seems consider palliative care considering pts age. Subjective ROS Limited/Unobtainable: No Interval Events: EGD and EUS are done Constitutional: Reports: no symptoms Allergies: Coded Allergies: No Known Allergies (Unverified , 03/07/18) Objective Last 24 Hour Vital Signs Date Time Temp Pulse Resp B/P (MAP) Pulse Ox O2 Delivery O2 Flow Rate FiO2 03/11/18 09:00 Room Air 03/11/18 08:25 97.8 66 16 103/64 99 Nasal Cannula 3 03/11/18 08:17 66 13 105/61 99 Nasal Cannula 3 03/11/18 08:12 67 14 106/66 99 Nasal Cannula 3 03/11/18 08:12 67 18 99 03/11/18 08:11 66 16 100 03/11/18 08:07 97.5 69 24 111/67 98 Nasal Cannula 3 03/11/18 04:56 98.9 03/11/18 04:00 77 03/11/18 04:00 98.9 80 20 120/75 (90) 95 03/11/18 00:00 88 03/11/18 00:00 98.4 83 20 117/72 (87) 97 03/10/18 21:00 Room Air 03/10/18 20:00 98.0 93 20 109/71 (84) 100 03/10/18 20:00 90 03/10/18 16:00 98.0 90 18 132/81 (98) 99 03/10/18 15:59 88 Intake and Output 03/10/18 03/11/18 18:59 06:59 Intake Total 575 ml 318 ml Balance 575 ml 318 ml IV Total 75 ml 318 ml Other 500 ml # Voids 1 2 General Appearance: WD/WN HEENT: normocephalic Respiratory/Chest: chest wall non-tender, normal breath sounds Breasts: no masses Cardiovascular: normal rate Abdomen: normal bowel sounds, no organomegaly Genitourinary: normal external genitalia Extremities: no clubbing Skin: no rash Laboratory Tests 03/11/18 09:30: White Blood Count 11.2H, Red Blood Count 3.29L, Hemoglobin 8.8L, Hematocrit 28.0L, Mean Corpuscular Volume 85, Mean Corpuscular Hemoglobin 26.8L, Mean Corpuscular Hemoglobin Concent 31.4L, Red Cell Distribution Width 14.5, Platelet Count 347, Mean Platelet Volume 6.4L, Neutrophils (%) (Auto) 63.1, Lymphocytes (%) (Auto) 21.6, Monocytes (%) (Auto) 13.3H, Eosinophils (%) (Auto) 1.5, Basophils (%) (Auto) 0.6, Sodium Level 142, Potassium Level 3.9, Chloride Level 109H, Carbon Dioxide Level 25, Anion Gap 8, Blood Urea Nitrogen 8, Creatinine 1.0, Estimat Glomerular Filtration Rate , Glucose Level 99, Calcium Level 9.8 Current Medications Medications (Trade) Dose Ordered Sig/Sebastien Route PRN Reason Start Time Stop Time Status Last Admin Dose Admin Acetaminophen (Tylenol) 650 mg Q4H PRN ORAL fever (temp>100.5F) 03/07/18 19:00 04/06/18 18:59 03/11/18 04:26 Acetaminophen/ Hydrocodone Bitart ([place] 5/325) 1 tab Q1H PRN ORAL Mild Pain (Pain Scale 1-3) 03/11/18 08:00 03/11/18 14:00 Acetaminophen/ Hydrocodone Bitart ([place] 7.5/325) 1 tab Q1H PRN ORAL Moderate Pain (Pain Scale 4-6) 03/11/18 08:00 03/11/18 14:00 Al Hydroxide/Mg Hydroxide (Mylanta II) 30 ml Q6H PRN ORAL dyspepsia 03/07/18 19:00 04/06/18 18:59 Al Hydroxide/Mg Hydroxide (Mylanta) 15 ml Q1H PRN ORAL gi upset 03/11/18 08:00 03/11/18 14:00 Atorvastatin Calcium (Lipitor) 10 mg BEDTIME ORAL 03/07/18 23:15 04/06/18 23:14 03/10/18 21:05 Atropine Sulfate (Atropine 0.4mg/ ml) 0.5 mg Q5M PRN IVP HR<40 03/11/18 08:00 03/11/18 14:00 Cyproheptadine HCl (Periactin) 4 mg THREE TIMES A DAY ORAL 03/09/18 13:00 04/08/18 12:59 03/10/18 18:32 Dextrose (Dextrose 50%) 25 ml Q30M PRN IV Hypoglycemia 03/07/18 19:00 04/06/18 18:59 Dextrose (Dextrose 50%) 50 ml Q30M PRN IV Hypoglycemia 03/07/18 19:00 04/06/18 18:59 Dextrose/Sodium Chloride 1,000 ml @ 75 mls/hr [id number] IV 03/09/18 09:45 04/08/18 09:44 03/11/18 01:46 Diphenhydramine HCl (Benadryl) 25 mg Q15M PRN IVP Itching 03/11/18 08:00 03/11/18 14:00 Diphenhydramine HCl (Benadryl) 25 mg Q6H PRN ORAL Itching/Pruritis 03/07/18 19:00 04/06/18 18:59 Docusate Sodium (Colace) 100 mg THREE TIMES A DAY ORAL 03/08/18 13:00 04/07/18 12:59 03/10/18 18:32 Fentanyl Citrate (Sublimaze 100 mcg/2 mL) 25 mcg Q10M PRN IV Moderate Pain (Pain Scale 4-6) 03/11/18 08:00 03/11/18 14:00 Fluoxetine HCl (PROzac) 60 mg DAILY ORAL 03/09/18 09:00 04/08/18 08:59 03/10/18 08:59 Heparin Sodium (Porcine) (Heparin 5000 units/ml) 5,000 units EVERY 12 HOURS SUBQ 03/07/18 21:00 04/06/18 20:59 03/10/18 21:06 Hydralazine HCl (Apresoline) 5 mg Q30M PRN IV SBP>160 / DBP>90 03/11/18 08:00 03/11/18 14:00 Hydromorphone HCl (Dilaudid) 0.5 mg Q15M PRN IVP Severe Pain (Pain Scale 7-10) 03/11/18 08:00 03/11/18 14:00 Lorazepam (Ativan 2mg/ml 1ml) 1 mg Q15M PRN IV For Anxiety 03/11/18 08:00 03/11/18 14:00 Lorazepam (Ativan 2mg/ml 1ml) 1 mg Q4H PRN IV agitation 03/07/18 19:00 03/14/18 18:59 Metoclopramide HCl (Reglan) 10 mg Q6H PRN IVP severe nausea 03/07/18 19:00 04/06/18 18:59 Midazolam HCl (Versed 2mg/2ml vial) 1 mg Q15M PRN IVP For Anxiety 03/11/18 08:00 03/11/18 14:00 Morphine Sulfate (Morphine Sulfate) 2 mg Q4H PRN IVP severe Pain (Pain Scale 7-10) 03/07/18 19:00 03/14/18 18:59 Nitroglycerin (Ntg) 0.4 mg Q5M X 3 DOSES PRN SL Prn Chest Pain 03/07/18 19:00 04/06/18 18:59 Ondansetron HCl (Zofran) 4 mg Q1H PRN IVP Nausea & Vomiting 03/11/18 08:00 03/11/18 14:00 Ondansetron HCl (Zofran) 4 mg Q6H PRN IVP Nausea & Vomiting 03/07/18 19:00 04/06/18 18:59 Oxycodone/ Acetaminophen (Percocet 5-325) 1 tab Q1H PRN ORAL Severe Pain (Pain Scale 7-10) 03/11/18 08:00 03/11/18 14:00 Pantoprazole (Protonix) 40 mg DAILY IV 03/08/18 09:00 04/07/18 08:59 03/10/18 08:59 Polyethylene Glycol (Miralax) 17 gm HSPRN PRN ORAL Constipation 03/07/18 19:00 04/06/18 18:59 Promethazine HCl (Phenergan) 25 mg Q6H PRN IM Refractory N/V 03/07/18 19:45 04/06/18 19:44 Spironolactone (Aldactone) 50 mg DAILY ORAL 03/08/18 09:00 04/07/18 08:59 03/10/18 08:59 Temazepam (Restoril) 15 mg HSPRN PRN ORAL Insomnia 03/07/18 19:00 03/14/18 18:59 Shavon Avalos MD Mar 11, 2018 13:13
[2018-03-11] MEDS ORDERED: Mylanta II UD 30ml ORAL PRN (16:08)
[2018-03-11] MEDS ORDERED: Morphine Sulfate 2mg/ml Inj IVP PRN (16:09)
[2018-03-11] MEDS ORDERED: Metoclopramide 10mg/2ml Inj IVP PRN (16:09)
[2018-03-11] MEDS ORDERED: Promethazine 50mg/ml Inj IM PRN (16:10)
[2018-03-11] MEDS ORDERED: Miralax 17gm pkt ORAL PRN (16:10)
[2018-03-11] MEDS ORDERED: Nitroglycerin Subl 0.4mg tab SL PRN (16:15)
[2018-03-11] MEDS ORDERED: D5NS 1000ml IV ONE (17:44)
--- NOTE | 2018-03-11 20:05 | Internal Med Progress Note ---
Subjective Date of Service: Mar 11, 2018 Physician Name IreneHernandez Attending Physician Octavio Roblero MD Current Medications Medications (Trade) Dose Ordered Sig/Sebastien Route PRN Reason Start Time Stop Time Status Last Admin Dose Admin Acetaminophen (Tylenol) 650 mg Q4H PRN ORAL fever (temp>100.5F) 03/11/18 16:08 04/06/18 16:07 Al Hydroxide/Mg Hydroxide (Mylanta II) 30 ml Q6H PRN ORAL dyspepsia 03/11/18 16:08 04/06/18 16:07 Atorvastatin Calcium (Lipitor) 10 mg BEDTIME ORAL 03/11/18 21:00 04/06/18 23:14 Cyproheptadine HCl (Periactin) 4 mg THREE TIMES A DAY ORAL 03/11/18 18:00 04/08/18 12:59 Dextrose (Dextrose 50%) 25 ml Q30M PRN IV Hypoglycemia 03/11/18 16:08 04/06/18 16:07 Dextrose (Dextrose 50%) 50 ml Q30M PRN IV Hypoglycemia 03/11/18 16:09 04/06/18 16:08 Dextrose/Sodium Chloride 1,000 ml @ 75 mls/hr [id number] IV 03/11/18 16:30 04/08/18 16:29 03/11/18 16:31 Diphenhydramine HCl (Benadryl) 25 mg Q6H PRN ORAL Itching/Pruritis 03/11/18 16:09 04/06/18 16:08 Docusate Sodium (Colace) 100 mg THREE TIMES A DAY ORAL 03/11/18 18:00 04/07/18 12:59 03/11/18 17:20 Fluoxetine HCl (PROzac) 60 mg DAILY ORAL 03/12/18 09:00 04/08/18 08:59 Heparin Sodium (Porcine) (Heparin 5000 units/ml) 5,000 units EVERY 12 HOURS SUBQ 03/11/18 21:00 04/06/18 20:59 Lorazepam (Ativan 2mg/ml 1ml) 1 mg Q4H PRN IV agitation 03/11/18 16:09 03/14/18 16:08 Metoclopramide HCl (Reglan) 10 mg Q6H PRN IVP severe nausea 03/11/18 16:09 04/06/18 16:08 Morphine Sulfate (Morphine Sulfate) 2 mg Q4H PRN IVP severe Pain (Pain Scale 7-10) 03/11/18 16:09 03/14/18 16:08 Nitroglycerin (Ntg) 0.4 mg Q5M X 3 DOSES PRN SL Prn Chest Pain 03/11/18 16:15 04/06/18 18:59 Ondansetron HCl (Zofran) 4 mg Q6H PRN IVP Nausea & Vomiting 03/11/18 16:10 04/06/18 16:09 Pantoprazole (Protonix) 40 mg DAILY IV 03/12/18 09:00 04/07/18 08:59 Polyethylene Glycol (Miralax) 17 gm HSPRN PRN ORAL Constipation 03/11/18 16:10 04/06/18 16:09 Promethazine HCl (Phenergan) 25 mg Q6H PRN IM Refractory N/V 03/11/18 16:10 04/06/18 16:09 Spironolactone (Aldactone) 50 mg DAILY ORAL 03/12/18 09:00 04/07/18 08:59 Temazepam (Restoril) 15 mg HSPRN PRN ORAL Insomnia 03/11/18 16:10 03/14/18 16:09 Allergies: Coded Allergies: No Known Allergies (Unverified , 03/07/18) Subjective 77 YO F admitted with left low quad abdominal pain and constipation. Now new RUQ mass. Cover for Int Med-Dr Roblero. S/P esophageal ultrasound and fine needle aspiration 03/11/18 Objective Last Vital Signs Date Time Temp Pulse Resp B/P (MAP) Pulse Ox O2 Delivery O2 Flow Rate FiO2 03/11/18 12:00 98.1 69 18 126/76 (93) 100 03/11/18 09:00 Room Air 03/11/18 08:25 3 Laboratory Tests Test 03/11/18 09:30 White Blood Count 11.2 K/UL (4.8-10.8) H Red Blood Count 3.29 M/UL (4.20-5.40) L Hemoglobin 8.8 G/DL (12.0-16.0) L Hematocrit 28.0 % (37.0-47.0) L Mean Corpuscular Volume 85 FL (80-99) Mean Corpuscular Hemoglobin 26.8 PG (27.0-31.0) L Mean Corpuscular Hemoglobin Concent 31.4 G/DL (32.0-36.0) L Red Cell Distribution Width 14.5 % (11.6-14.8) Platelet Count 347 K/UL (150-450) Mean Platelet Volume 6.4 FL (6.5-10.1) L Neutrophils (%) (Auto) 63.1 % (45.0-75.0) Lymphocytes (%) (Auto) 21.6 % (20.0-45.0) Monocytes (%) (Auto) 13.3 % (1.0-10.0) H Eosinophils (%) (Auto) 1.5 % (0.0-3.0) Basophils (%) (Auto) 0.6 % (0.0-2.0) Sodium Level 142 MMOL/L (136-145) Potassium Level 3.9 MMOL/L (3.5-5.1) Chloride Level 109 MMOL/L (98-107) H Carbon Dioxide Level 25 MMOL/L (21-32) Anion Gap 8 mmol/L (5-15) Blood Urea Nitrogen 8 mg/dL (7-18) Creatinine 1.0 MG/DL (0.55-1.30) Estimat Glomerular Filtration Rate mL/min (>60) Glucose Level 99 MG/DL (74-106) Calcium Level 9.8 MG/DL (8.5-10.1) Intake and Output 03/10/18 03/11/18 19:00 07:00 Intake Total 500 ml 393 ml Balance 500 ml 393 ml IV Total 393 ml Other 500 ml # Voids 1 2 Objective Objective General: No acute distress, awake and alert HEENT: NCAT, sclera anicteric, PERRL, EOMI. Neck: Supple, no significant jugular venous distention, Lungs: Good inspiratory effort,, no Wheeze or Rales. Heart: Regular rate and rhythm, normal S1/S2, no murmurs Abdomen: soft, Left side tenderness, nondistended. Normoactive bowel sounds. Extremities: No Cyanosis , clubbing or edema. Neuro: A&O x 3, Able to move all extremities Skin: warm, no rashes or lesions Psych: Normal mood and affect Assessment/Plan Problem List: (1) HTN (hypertension) Assessment & Plan: Continue spironolactone (2) Hypercholesterolemia (3) Constipation (4) Intractable abdominal pain (5) gall bladder fossa mass Assessment & Plan: S/P endoscopy with FNA of duodenal mass 03/11/18-await biopsy result. See onc consult. (6) Anemia Status: not improved Hernandez Bonilla MD Mar 11, 2018 20:05
[2018-03-12] VITALS: BP 122/58
--- NOTE | 2018-03-12 00:34 | General Progress Note ---
Assessment/Plan Problem List: (1) Major depression, recurrent ICD Codes: F33.9 - Major depressive disorder, recurrent, unspecified SNOMED: [id number] Status: stable Assessment/Plan prozac 60mg qam midazolam prn provided ro/st Subjective Date patient seen: Mar 11, 2018 Neurologic/Psychiatric: Reports: anxiety, depressed, emotional problems Allergies: Coded Allergies: No Known Allergies (Unverified , 03/07/18) Objective Last 24 Hour Vital Signs Date Time Temp Pulse Resp B/P (MAP) Pulse Ox O2 Delivery O2 Flow Rate FiO2 03/11/18 20:00 97.9 79 18 119/63 (81) 99 03/11/18 12:00 98.1 69 18 126/76 (93) 100 03/11/18 09:00 Room Air 03/11/18 08:25 97.8 66 16 103/64 99 Nasal Cannula 3 03/11/18 08:17 66 13 105/61 99 Nasal Cannula 3 03/11/18 08:12 67 14 106/66 99 Nasal Cannula 3 03/11/18 08:12 67 18 99 03/11/18 08:11 66 16 100 03/11/18 08:07 97.5 69 24 111/67 98 Nasal Cannula 3 03/11/18 04:56 98.9 03/11/18 04:00 77 03/11/18 04:00 98.9 80 20 120/75 (90) 95 Intake and Output 03/11/18 03/12/18 19:00 07:00 Intake Total 590 ml Balance 590 ml Intake Oral 240 ml IV Total 350 ml # Voids 3 # Bowel Movements 2 Laboratory Tests 03/11/18 09:30: White Blood Count 11.2H, Red Blood Count 3.29L, Hemoglobin 8.8L, Hematocrit 28.0L, Mean Corpuscular Volume 85, Mean Corpuscular Hemoglobin 26.8L, Mean Corpuscular Hemoglobin Concent 31.4L, Red Cell Distribution Width 14.5, Platelet Count 347, Mean Platelet Volume 6.4L, Neutrophils (%) (Auto) 63.1, Lymphocytes (%) (Auto) 21.6, Monocytes (%) (Auto) 13.3H, Eosinophils (%) (Auto) 1.5, Basophils (%) (Auto) 0.6, Sodium Level 142, Potassium Level 3.9, Chloride Level 109H, Carbon Dioxide Level 25, Anion Gap 8, Blood Urea Nitrogen 8, Creatinine 1.0, Estimat Glomerular Filtration Rate , Glucose Level 99, Calcium Level 9.8 Height (Feet): 5 Height (Inches): 6.00 Weight (Pounds): 168 General Appearance: no apparent distress, alert Neurologic: oriented x 3, responsive, depressed affect Caio Neumann MD Mar 12, 2018 00:34
[2018-03-12 04:00] VITALS: BP 115/59
[2018-03-12] MEDS: D5NS 1,000 ML IV SCH (06:01)
[2018-03-12 06:41] LABS: BASOPHILS % (AUTO) 0.6 % (0.0-2.0); EOSINOPHILS % (AUTO) 1.4 % (0.0-3.0); HEMATOCRIT 29.8 % (37.0-47.0); HEMOGLOBIN 9.5 G/DL (12.0-16.0); LYMPHOCYTES % (AUTO) 21.1 % (20.0-45.0); MEAN CORPUSCULAR VOLUME 85 FL (80-99); MONOCYTES % (AUTO) 11.1 % (1.0-10.0); NEUTROPHILS % (AUTO) 65.8 % (45.0-75.0); PLATELET COUNT 350 K/UL (150-450); RED CELL DISTRIBUTION WIDTH 14.6 % (11.6-14.8); WHITE BLOOD COUNT 8.5 K/UL (4.8-10.8)
[2018-03-12 07:37] LABS: ALANINE AMINOTRANSFERASE 109 U/L (12-78); ALBUMIN 1.4 G/DL (3.4-5.0); ALBUMIN/GLOBULIN RATIO 0.3 (1.0-2.7); ALKALINE PHOSPHATASE 108 U/L (46-116); ANION GAP 8 mmol/L (5-15); ASPARTATE AMINO TRANSFERASE 153 U/L (15-37); BILIRUBIN,TOTAL 0.8 MG/DL (0.2-1.0); BLOOD UREA NITROGEN 7 mg/dL (7-18); CALCIUM 9.6 MG/DL (8.5-10.1); CARBON DIOXIDE 25 MMOL/L (21-32); CHLORIDE 106 MMOL/L (98-107); POTASSIUM 3.7 MMOL/L (3.5-5.1); SODIUM 139 MMOL/L (136-145)
[2018-03-12] MEDS: Docusate 100mg cap ORAL SCH ×3 (08:50→13:20)
[2018-03-12] MEDS: Cyproheptadine HCl 4mg tab ORAL SCH ×3 (08:50→13:20)
[2018-03-12] MEDS: Spironolactone 50mg tab ORAL SCH ×2 (08:50→09:34)
[2018-03-12] MEDS: Heparin 5000 units/ml inj SUBQ SCH (09:00)
[2018-03-12] MEDS ORDERED: Pantoprazole Inj IV SCH (09:00)
[2018-03-12 12:00] VITALS: BP 114/63
--- NOTE | 2018-03-12 12:55 | Pulmonology Progress Note ---
Assessment/Plan Problems: (1) Intractable abdominal pain (2) Neoplasm of abdomen (3) Anemia Assessment/Plan had EUS and EGD done yesterday talk to pathologist, results still pending tumor markers are still pending anemia w/u in process all notes reviewed tumor seems pt asked to be DNRs Subjective ROS Limited/Unobtainable: No Constitutional: Reports: no symptoms HEENT: Repors: no symptoms Respiratory: Reports: no symptoms Allergies: Coded Allergies: No Known Allergies (Unverified , 03/07/18) Objective Last 24 Hour Vital Signs Date Time Temp Pulse Resp B/P (MAP) Pulse Ox O2 Delivery O2 Flow Rate FiO2 03/12/18 12:00 97.7 71 18 114/63 (80) 97 03/12/18 09:00 Room Air 03/12/18 04:00 98.2 71 20 115/59 (77) 96 03/12/18 00:00 99.0 82 20 122/58 (79) 99 03/11/18 21:00 Room Air 03/11/18 20:00 97.9 79 18 119/63 (81) 99 Intake and Output 03/11/18 03/12/18 18:59 06:59 Intake Total 665 ml Balance 665 ml Intake Oral 240 ml IV Total 425 ml # Voids 3 2 # Bowel Movements 2 General Appearance: cachetic HEENT: normocephalic, atraumatic Respiratory/Chest: chest wall non-tender, lungs clear Breasts: no masses Cardiovascular: normal peripheral pulses Abdomen: normal bowel sounds, soft, non tender Extremities: no cyanosis Skin: no rash Neurologic/Psychiatric: environmental geologist II-XII grossly normal Lymphatic: no neck adenopathy Laboratory Tests 03/12/18 06:20: White Blood Count 8.5, Red Blood Count 3.50L, Hemoglobin 9.5L, Hematocrit 29.8L , Mean Corpuscular Volume 85, Mean Corpuscular Hemoglobin 27.2, Mean Corpuscular Hemoglobin Concent 32.0, Red Cell Distribution Width 14.6, Platelet Count 350, Mean Platelet Volume 6.6, Neutrophils (%) (Auto) 65.8, Lymphocytes (% ) (Auto) 21.1, Monocytes (%) (Auto) 11.1H, Eosinophils (%) (Auto) 1.4, Basophils (%) (Auto) 0.6, Sodium Level 139, Potassium Level 3.7, Chloride Level 106, Carbon Dioxide Level 25, Anion Gap 8, Blood Urea Nitrogen 7, Creatinine 1.0 , Estimat Glomerular Filtration Rate , Glucose Level 122H, Calcium Level 9.6, Phosphorus Level 3.0, Magnesium Level 1.6L, Total Bilirubin 0.8, Aspartate Amino Transf (AST/SGOT) 153H, Alanine Aminotransferase (ALT/SGPT) 109H, Alkaline Phosphatase 108, Total Protein 6.6, Albumin 1.4L, Globulin 5.2, Albumin /Globulin Ratio 0.3L Current Medications Medications (Trade) Dose Ordered Sig/Sebastien Route PRN Reason Start Time Stop Time Status Last Admin Dose Admin Acetaminophen (Tylenol) 650 mg Q4H PRN ORAL fever (temp>100.5F) 03/11/18 16:08 04/06/18 16:07 Al Hydroxide/Mg Hydroxide (Mylanta II) 30 ml Q6H PRN ORAL dyspepsia 03/11/18 16:08 04/06/18 16:07 Atorvastatin Calcium (Lipitor) 10 mg BEDTIME ORAL 03/11/18 21:00 04/06/18 23:14 03/11/18 20:22 Cyproheptadine HCl (Periactin) 4 mg THREE TIMES A DAY ORAL 03/11/18 18:00 04/08/18 12:59 Dextrose (Dextrose 50%) 25 ml Q30M PRN IV Hypoglycemia 03/11/18 16:08 04/06/18 16:07 Dextrose (Dextrose 50%) 50 ml Q30M PRN IV Hypoglycemia 03/11/18 16:09 04/06/18 16:08 Dextrose/Sodium Chloride 1,000 ml @ 75 mls/hr [id number] IV 03/11/18 16:30 04/08/18 16:29 03/12/18 06:01 Diphenhydramine HCl (Benadryl) 25 mg Q6H PRN ORAL Itching/Pruritis 03/11/18 16:09 04/06/18 16:08 Docusate Sodium (Colace) 100 mg THREE TIMES A DAY ORAL 03/11/18 18:00 04/07/18 12:59 03/11/18 17:20 Fluoxetine HCl (PROzac) 60 mg DAILY ORAL 03/12/18 09:00 04/08/18 08:59 Heparin Sodium (Porcine) (Heparin 5000 units/ml) 5,000 units EVERY 12 HOURS SUBQ 03/11/18 21:00 04/06/18 20:59 03/11/18 20:24 Lorazepam (Ativan 2mg/ml 1ml) 1 mg Q4H PRN IV agitation 03/11/18 16:09 03/14/18 16:08 Metoclopramide HCl (Reglan) 10 mg Q6H PRN IVP severe nausea 03/11/18 16:09 04/06/18 16:08 Morphine Sulfate (Morphine Sulfate) 2 mg Q4H PRN IVP severe Pain (Pain Scale 7-10) 03/11/18 16:09 03/14/18 16:08 03/11/18 23:20 Nitroglycerin (Ntg) 0.4 mg Q5M X 3 DOSES PRN SL Prn Chest Pain 03/11/18 16:15 04/06/18 18:59 Ondansetron HCl (Zofran) 4 mg Q6H PRN IVP Nausea & Vomiting 03/11/18 16:10 04/06/18 16:09 Pantoprazole (Protonix) 40 mg DAILY IV 03/12/18 09:00 04/07/18 08:59 03/12/18 08:49 Polyethylene Glycol (Miralax) 17 gm HSPRN PRN ORAL Constipation 03/11/18 16:10 04/06/18 16:09 Promethazine HCl (Phenergan) 25 mg Q6H PRN IM Refractory N/V 03/11/18 16:10 04/06/18 16:09 Spironolactone (Aldactone) 50 mg DAILY ORAL 03/12/18 09:00 04/07/18 08:59 Temazepam (Restoril) 15 mg HSPRN PRN ORAL Insomnia 03/11/18 16:10 03/14/18 16:09 Shavon Avalos MD Mar 12, 2018 12:55
--- NOTE | 2018-03-12 13:09 | General Surgery Progress Note ---
General Surgery-Progress Note Subjective Symptoms: pain absent, passing flatus Additional Comments doing well. no complaints. awaiting path Objective Last 24 Hour Vital Signs Date Time Temp Pulse Resp B/P (MAP) Pulse Ox O2 Delivery O2 Flow Rate FiO2 03/12/18 12:00 97.7 71 18 114/63 (80) 97 03/12/18 09:00 Room Air 03/12/18 04:00 98.2 71 20 115/59 (77) 96 03/12/18 00:00 99.0 82 20 122/58 (79) 99 03/11/18 21:00 Room Air 03/11/18 20:00 97.9 79 18 119/63 (81) 99 I&O Intake and Output 03/11/18 03/12/18 18:59 06:59 Intake Total 665 ml Balance 665 ml Intake Oral 240 ml IV Total 425 ml # Voids 3 2 # Bowel Movements 2 Drains: none Cardiovascular: RSR Respiratory: clear Abdomen: soft, flat, non-tender, present bowel sounds Extremities: no cyanosis Laboratory Tests Test 03/12/18 06:20 White Blood Count 8.5 K/UL (4.8-10.8) Red Blood Count 3.50 M/UL (4.20-5.40) L Hemoglobin 9.5 G/DL (12.0-16.0) L Hematocrit 29.8 % (37.0-47.0) L Mean Corpuscular Volume 85 FL (80-99) Mean Corpuscular Hemoglobin 27.2 PG (27.0-31.0) Mean Corpuscular Hemoglobin Concent 32.0 G/DL (32.0-36.0) Red Cell Distribution Width 14.6 % (11.6-14.8) Platelet Count 350 K/UL (150-450) Mean Platelet Volume 6.6 FL (6.5-10.1) Neutrophils (%) (Auto) 65.8 % (45.0-75.0) Lymphocytes (%) (Auto) 21.1 % (20.0-45.0) Monocytes (%) (Auto) 11.1 % (1.0-10.0) H Eosinophils (%) (Auto) 1.4 % (0.0-3.0) Basophils (%) (Auto) 0.6 % (0.0-2.0) Sodium Level 139 MMOL/L (136-145) Potassium Level 3.7 MMOL/L (3.5-5.1) Chloride Level 106 MMOL/L (98-107) Carbon Dioxide Level 25 MMOL/L (21-32) Anion Gap 8 mmol/L (5-15) Blood Urea Nitrogen 7 mg/dL (7-18) Creatinine 1.0 MG/DL (0.55-1.30) Estimat Glomerular Filtration Rate mL/min (>60) Glucose Level 122 MG/DL (74-106) H Calcium Level 9.6 MG/DL (8.5-10.1) Phosphorus Level 3.0 MG/DL (2.5-4.9) Magnesium Level 1.6 MG/DL (1.8-2.4) L Total Bilirubin 0.8 MG/DL (0.2-1.0) Aspartate Amino Transf (AST/SGOT) 153 U/L (15-37) H Alanine Aminotransferase (ALT/SGPT) 109 U/L (12-78) H Alkaline Phosphatase 108 U/L (46-116) Total Protein 6.6 G/DL (6.4-8.2) Albumin 1.4 G/DL (3.4-5.0) L Globulin 5.2 g/dL Albumin/Globulin Ratio 0.3 (1.0-2.7) L Plan Problems: (1) Neoplasm of abdomen Assessment & Plan: 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 GB vs gastric vs colon? CT reviewed MRI reviewed EGD with infiltrating duodenal mass. biopsy taken await pathology results okay for diet from surgical standpoint given no obstructive symptoms as for mass; if needs resection will need higher level of care. location of mass very concerning. await path will follow with recs. thank you. Klever Thurman Mar 12, 2018 13:09
[2018-03-12] MEDS ORDERED: MORPHINE S10 MG/5 ML ORAL (14:15)
--- NOTE | 2018-03-12 14:29 | General Progress Note ---
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 Newly diagnosed abdominal RUQ tumor. Etiology unknown. GB vs gastric vs colon --> CT: Large heterogeneous enhancing mass in the jori hepatis contiguous with the gallbladder fossa measuring 7 x 5.6 x 6 cm suspicious for malignant tumor. This is probably of gallbladder origin. Would consider gastric or duodenal origin. Would consider infection although much less likely based on the appearance. Correlate clinically. --> US, CT, MRI have all been reviewed --> tumor markers - AFP of 1.8. CEA of 0.7 --> 03/11: had EUS and EGD done --> further recs after pathology report is available, appears to be prelim adenocarcinoma # Anemia of chronic disease due to underlying chronic medical issues, multifactorial. --> Anemia w/u has been reviewed. Ferritin at 290 --> No evidence of hemolysis noted, peripheral smear has been reviewed. --> Hgb goal >7, transfuse as needed --> Blood tx: 03/10, # Leukocytosis. Likely related to underlying infection versus reactive process. --> WBC improved. --> Imaging has been reviewed. CXR shows no acute disease --> Blood cultures and urine cultures are pending - no growth after 4 days --> Currently not on abx # Constipation. # Weakness. Greatly appreciate consultation. Subjective Date patient seen: Mar 12, 2018 ROS Limited/Unobtainable: Yes Hematologic/Lymphatic: Reports: anemia Allergies: Coded Allergies: No Known Allergies (Unverified , 03/07/18) Subjective VS stable. H/H stable. Had EUS and EGD done yesterday, results still pending. Objective Last 24 Hour Vital Signs Date Time Temp Pulse Resp B/P (MAP) Pulse Ox O2 Delivery O2 Flow Rate FiO2 03/12/18 12:00 97.7 71 18 114/63 (80) 97 03/12/18 09:00 Room Air 03/12/18 04:00 98.2 71 20 115/59 (77) 96 03/12/18 00:00 99.0 82 20 122/58 (79) 99 03/11/18 21:00 Room Air 03/11/18 20:00 97.9 79 18 119/63 (81) 99 Intake and Output 03/11/18 03/12/18 18:59 06:59 Intake Total 665 ml Balance 665 ml Intake Oral 240 ml IV Total 425 ml # Voids 3 2 # Bowel Movements 2 Laboratory Tests 03/12/18 06:20: White Blood Count 8.5, Red Blood Count 3.50L, Hemoglobin 9.5L, Hematocrit 29.8L , Mean Corpuscular Volume 85, Mean Corpuscular Hemoglobin 27.2, Mean Corpuscular Hemoglobin Concent 32.0, Red Cell Distribution Width 14.6, Platelet Count 350, Mean Platelet Volume 6.6, Neutrophils (%) (Auto) 65.8, Lymphocytes (% ) (Auto) 21.1, Monocytes (%) (Auto) 11.1H, Eosinophils (%) (Auto) 1.4, Basophils (%) (Auto) 0.6, Sodium Level 139, Potassium Level 3.7, Chloride Level 106, Carbon Dioxide Level 25, Anion Gap 8, Blood Urea Nitrogen 7, Creatinine 1.0 , Estimat Glomerular Filtration Rate , Glucose Level 122H, Calcium Level 9.6, Phosphorus Level 3.0, Magnesium Level 1.6L, Total Bilirubin 0.8, Aspartate Amino Transf (AST/SGOT) 153H, Alanine Aminotransferase (ALT/SGPT) 109H, Alkaline Phosphatase 108, Total Protein 6.6, Albumin 1.4L, Globulin 5.2, Albumin /Globulin Ratio 0.3L Height (Feet): 5 Height (Inches): 6.00 Weight (Pounds): 168 General Appearance: no apparent distress Objective Vitals: Reviewed. General Appearance: no apparent distress, sleeping Lines, tubes and drains: peripheral HEENT: normocephalic, mucous membranes moist Neck: normal inspection Respiratory/Chest: normal breath sounds, no respiratory distress, no accessory muscle use Cardiovascular/Chest: normal rate, regular rhythm Abdomen: normal bowel sounds, non tender, soft, no organomegaly, no mass, other - prior lower midline scar well healed Extremities: normal inspection Skin Exam: warm/dry Neurologic: alert, responsive Abner Silva MD Mar 12, 2018 14:29
--- NOTE | 2018-03-12 14:37 | GI Progress Note ---
Assessment/Plan Problems: (1) Intractable abdominal pain ICD Codes: R10.9 - Unspecified abdominal pain SNOMED: 18249189, 094592045 (2) Anemia ICD Codes: D64.9 - Anemia, unspecified SNOMED: 732323455 (3) Constipation ICD Codes: K59.00 - Constipation, unspecified SNOMED: 13347836 (4) Neoplasm of abdomen ICD Codes: D49.89 - Neoplasm of unspecified behavior of other specified sites SNOMED: 859899960 (5) gall bladder fossa mass Status: unchanged Status Narrative Discussed with Dr. Deleon. Assessment/Plan SUMMARY OF FINDINGS: 1. Large duodenal mass. See above for details. Status post multiple biopsies. 2. Peeling off of the mucosa lining suspicious for esophagitis. RECOMMENDATIONS: 1. Follow up biopsy results. 2. Discussed with surgery regarding the plans and surgery and Oncology when biopsies are available. 3. Reflux measures. 4. Clear liquid diet, adv as tolerated. 5. PPI. 6. fu labs The patient was seen and examined at bedside and all new and available data was reviewed in the patients chart. I agree with the above findings, impression and plan. (Patient seen earlier today. Signature stamp does not reflect patient encounter time.). - Mando Deleon MD Subjective Gastrointestinal/Abdominal: Reports: no symptoms Objective Last 24 Hour Vital Signs Date Time Temp Pulse Resp B/P (MAP) Pulse Ox O2 Delivery O2 Flow Rate FiO2 03/12/18 12:00 97.7 71 18 114/63 (80) 97 03/12/18 09:00 Room Air 03/12/18 04:00 98.2 71 20 115/59 (77) 96 03/12/18 00:00 99.0 82 20 122/58 (79) 99 03/11/18 21:00 Room Air 03/11/18 20:00 97.9 79 18 119/63 (81) 99 Intake and Output 03/11/18 03/12/18 18:59 06:59 Intake Total 665 ml Balance 665 ml Intake Oral 240 ml IV Total 425 ml # Voids 3 2 # Bowel Movements 2 Laboratory Tests Test 03/12/18 06:20 White Blood Count 8.5 K/UL (4.8-10.8) Red Blood Count 3.50 M/UL (4.20-5.40) L Hemoglobin 9.5 G/DL (12.0-16.0) L Hematocrit 29.8 % (37.0-47.0) L Mean Corpuscular Volume 85 FL (80-99) Mean Corpuscular Hemoglobin 27.2 PG (27.0-31.0) Mean Corpuscular Hemoglobin Concent 32.0 G/DL (32.0-36.0) Red Cell Distribution Width 14.6 % (11.6-14.8) Platelet Count 350 K/UL (150-450) Mean Platelet Volume 6.6 FL (6.5-10.1) Neutrophils (%) (Auto) 65.8 % (45.0-75.0) Lymphocytes (%) (Auto) 21.1 % (20.0-45.0) Monocytes (%) (Auto) 11.1 % (1.0-10.0) H Eosinophils (%) (Auto) 1.4 % (0.0-3.0) Basophils (%) (Auto) 0.6 % (0.0-2.0) Sodium Level 139 MMOL/L (136-145) Potassium Level 3.7 MMOL/L (3.5-5.1) Chloride Level 106 MMOL/L (98-107) Carbon Dioxide Level 25 MMOL/L (21-32) Anion Gap 8 mmol/L (5-15) Blood Urea Nitrogen 7 mg/dL (7-18) Creatinine 1.0 MG/DL (0.55-1.30) Estimat Glomerular Filtration Rate mL/min (>60) Glucose Level 122 MG/DL (74-106) H Calcium Level 9.6 MG/DL (8.5-10.1) Phosphorus Level 3.0 MG/DL (2.5-4.9) Magnesium Level 1.6 MG/DL (1.8-2.4) L Total Bilirubin 0.8 MG/DL (0.2-1.0) Aspartate Amino Transf (AST/SGOT) 153 U/L (15-37) H Alanine Aminotransferase (ALT/SGPT) 109 U/L (12-78) H Alkaline Phosphatase 108 U/L (46-116) Total Protein 6.6 G/DL (6.4-8.2) Albumin 1.4 G/DL (3.4-5.0) L Globulin 5.2 g/dL Albumin/Globulin Ratio 0.3 (1.0-2.7) L Height (Feet): 5 Height (Inches): 6.00 Weight (Pounds): 168 General Appearance: WD/WN, no apparent distress, alert Cardiovascular: normal rate Respiratory/Chest: normal breath sounds, no respiratory distress Abdominal Exam: normal bowel sounds, non tender, soft Extremities: normal range of motion, non-tender Sriram Cali NP Mar 12, 2018 14:37
--- NOTE | 2018-03-12 16:01 | Progress Note ---
DATE: 03/12/2018 SUBJECTIVE: The patient is , in no acute distress. She is complaining of depression and anxiety. Her Prozac was increased over the weekend by Rebecca Pillai, the nurse practitioner. The patient complains of low energy. MENTAL STATUS EXAMINATION: The patient is alert, oriented times self, place, and situation. Mood is depressed. Affect is constricted. Congruent with mood. Thought process is concrete. Thought content, there is no suicidal or homicidal ideation. Cognition is slightly impaired including memory. Insight and judgment is fair. ASSESSMENT: 1. Major depressive disorder. 2. Anxiety disorder. PLAN: 1. We will continue the fluoxetine 60 mg at night. 2. Provide the patient with supportive therapy and reality orientation. 3. We will continue to follow and readjust the medications. Caio Neumann M.D. DR: Priyanka JOB#: [id number] CC:
[2018-03-12] MEDS ORDERED: D5NS 1000ml IV ONE (16:13)
--- NOTE | 2018-03-14 13:01 | Discharge Summary ---
Discharge Summary Discharge Summary _ DATE OF ADMISSION: 03/07/2018 DATE OF DISCHARGE: 03/12/2018 REASON FOR ADMISSION: 77 years old female with history of hypertension ,dyslipidemia, presented with subjective fevers for 2 weeks. Patient reported constipation for the last 3 weeks. Patient overall felt unwell, with generalized weakness and dizziness, with gradual onset of symptoms. She reported left lower quadrant abdominal pain with movement or position change. Patient reported pain to be severe, intermittent in duration and sharp, without radiation. Patient reported poor appetite , but no weight loss. Patient reported history of bowel obstruction t, requiring surgery . reported dark malodorous urine. Vital signs reveal low grade fever and tachycardia 115. Pulse oximetry was stable on room air. Laboratory workup revealed mild leukocytosis WBC 11.5. Hemoglobin 9.3 hematocrit 30.1 Potassium 3.2. AST 66. Chest x-ray revealed no acute cardiopulmonary pathology.. CT of the abdomen and pelvis revealed large heterogeneous enhancing mass in the jori hepatis, continued with the gallbladder foci and measuring 7 x 5.6 x 6 cm, suspicious for malignant tumor, probably of gallbladder origin. Consider possible duodenal origin as well. Hiatal hernia noted. Diverticulosis of the colon. Patient admitted with diagnosis of neoplasm of abdomen, constipation ,fevers. CONSULTANTS: pulmonary food or baggage handling rampman Dr. Avalos GI specialist Dr. Deleon chemical operator/oncologist Dr. Silva surgery Dr. Thurman psychiatrist [facility] COURSE: Patient admitted and started on the IV fluids. GI, surgery and oncology consults requested. Abdominal ultrasound revealed large mass in the area of jori hepatis suspicious for malignant tumor. MRCP of the abdomen revealed large heterogeneous mass in the jori hepatis. Gallbladder, first and second portion of the abdomen and antral portion of the stomach were not identified and intimately associated with mass. MRCP was negative from the standpoint of biliary ductal disease. No evidence of biliary ductal dilatation. Patient undergone upper endoscopy with biopsy a for evaluation of abdominal mass. Noted large infiltrated duodenal mass. Pathology of duodenal ulcer revealed adenocarcinoma. Reflux measure were continued Patient started on clear liquid diet and PPI . Patient was advanced on diet as tolerated. Bowel regimen instituted. Pain management was addressed. Surgeon closely followed. Surgeon cleared patient for diet, given no obstructive symptoms. Patient will need resection of abdominal mass at higher level of care. Location of mass was very concerning for metastatic disease. 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 Cancer tumor markers unremarkable: alpha-fetoprotein 1.8 , CEA 0.7. Patient to follow-up on with oncologist as outpatient for further recommendations and management. Patient noted to have anemia. Anemia workup was consistent with anemia of chronic disease, likely due to malignancy . No evidence of hemolysis. Peripheral blood smear was reviewed. Hemoglobin and hematocrit were closely monitored goal to keep hemoglobin above 7. Patient received blood transfusion on 03/10. Prior to discharge hemoglobin and hematocrit stable. Stool for occult blood x 1 was positive. Mild leukocytosis likely reactive, secondary to malignant process . WBC improving. Chest x-ray revealed no acute pathology. Blood culture and urinalysis negative. No need for antibiotics . Supportive care provided . Antiemetics provided as needed . Appetite stimulant added to existing medication regimen. Gmat Instructor recommendations implemented in plan of care . Blood pressure was managed with current regimen . Statin was continued . DVT and GI prophylaxis provided. Patient was working with physical and occupational therapist. Bedside swallow evaluation revealed evidence of oropharyngeal dysphagia. Diet was provided as per speech therapy recommendations with 1 to 1 supervision and strict aspiration/ reflux precaution. Psychiatrist followed. Patient started on Prozac. Supportive therapy and reality orientation provided. Patient stabilized and was discharged home. Follow up with oncologist regarding further management . 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 DISCHARGE INSTRUCTIONS: Patient was discharged home. Follow up with primary care provider in one week. Follow up with oncologist for further management. . I have been assigned to dictate discharge summary for this account. I was not involved in the patient's management. Rebecca Pillai NP Mar 14, 2018 13:01
== END 2018-03-12 16:14 | disposition home or self-care (01) | DRG 375 ==
LOC: EMR 14:20 → 2E 15:06 → EDBEDREQ 16:59 → 4E 03-11 16:16
PROC: 30233N1 Transfusion of Nonautologous Red Blood Cells into Peripheral Vein, Percutaneous Approach (ICD-10-PCS; principal; 2018-03-10)
PROC: 0DD98ZX Extraction of Duodenum, Via Natural or Artificial Opening Endoscopic, Diagnostic (ICD-10-PCS; 2018-03-11)
DX: C17.0 Malignant neoplasm of duodenum (principal); E46 Unspecified protein-calorie malnutrition; C23 Malignant neoplasm of gallbladder; F33.9 Major depressive disorder, recurrent, unspecified; D63.8 Anemia in other chronic diseases classified elsewhere; I10 Essential (primary) hypertension; E78.00 Pure hypercholesterolemia, unspecified; F41.9 Anxiety disorder, unspecified; K20.9 Esophagitis, unspecified; K59.00 Constipation, unspecified; R50.9 Fever, unspecified
CPT/HCPCS: 36415; 71045; 74177; 74183; 76700; 80048; 80053; 81003; 82105; 82150; 82270; 82378; 82553; 82607; 82728; 82746; 83540; 83550; 83605; 83615; 83690; 83735; 84100; 84484; 85007; 85025; 85044; 85060; 85610; 85651; 85730; 86850; 86900; 86901; 86920; 87040; 93005; 94003; 94150; 96361; 96365; 97802; 99285; A9585; J8499